=== PATIENT | male | born 1945 | race Caucasian/White ===

== ENCOUNTER 2018-03-13 19:21 | Emergency (ER) | payer MEDICARE, SELFPAY ==
[2018-03-13 19:32] VITALS: BP 138/82; PULSE 86; RESP 16; TEMP 36.3; O2SAT 100; BMI 30.4
--- NOTE | 2018-03-13 19:50 | DI.RAD.S_ITS ---
PROCEDURE: XR FOOT LT MIN 3V INDICATIONS: stepped on something, neuropathy TECHNIQUE: 3 views of the foot were acquired. COMPARISON: None. FINDINGS: Bones: Mildly displaced fracture through the distal third metatarsal. The third proximal phalange is dislocated laterally. Soft tissues: No tibiotalar joint effusion. Achilles tendon appears normal. IMPRESSION: 1. Distal third metatarsal fracture. 2. Third toe dislocation. Dictated by: Goldie Stevens MD, PhD on 03/13/2018 at 20:54 Approved by: Goldie Stevens MD, PhD on 03/13/2018 at 20:55
[2018-03-13 20:39] LABS: Add Manual Diff / Slide Review NO; Basophils Percent Auto 0.8 % (0-2); Eosinophils Percent Auto 1.3 % (2-4); Hematocrit 41.5 % (41-53); Hemoglobin 14.2 g/dL (13.5-17.5); Lymphocytes Percent Auto 13.8 % (25-40); Mean Corpuscular HGB Conc 34.1 % (30-36); Mean Corpuscular Hemoglobin 31.5 PG (26-34); Mean Corpuscular Volume 92.1 fL (80-100); Monocytes Percent Auto 7.1 % (3-14); Neutrophils Absolute Auto 7600 /uL (3000-5900); Platelet Count 294 X10^3/uL (150-400); Red Cell Distribution Width 13.5 % (11.6-14.8); White Blood Cell Count 9.9 X10^3/uL (4.5-11.0)
[2018-03-13 20:40] LABS: INR 1.1 (0.9-1.3); Prothrombin Time 12.5 SECONDS (10.1-12.7)
[2018-03-13 20:43] LABS: PTT Partial Thromboplastin Tim 42 SECONDS (26.4-36.2)
[2018-03-13 20:46] LABS: Alanine Aminotransferase 23 IU/L (21-72); Albumin Globulin Ratio 1.1 (1.0-2.8); Alkaline Phosphatase 98 U/L (38-126); Aspartate Aminotransferase 24 IU/L (17-59); Bilirubin Total 0.4 mg/dL (0.2-1.3); Blood Urea Nitrogen 31 mg/dL (9-20); Calcium 9.1 mg/dL (8.4-10.2); Carbon Dioxide 27 mmol/L (22-32); Chloride 104 mmol/L (98-107); Estimated Glomerular Filt Rate > 60.0 mL/min (>60); Globulin 3.8 g/dL (1.7-4.1); Glucose 140 mg/dL (80-110); HEMOLYSIS < 15 (0-50); Lactate (Lactic Acid) 1.8 mmol/L (0.7-2.1); Potassium 4.7 mmol/L (3.4-5.1); Sodium 141 mmol/L (137-145); Total Protein 7.8 g/dL (6.3-8.2)
--- NOTE | 2018-03-13 20:58 | ED_ITS ---
HPI - Wound/Laceration General Chief Complaint: Wound/Laceration Stated Complaint: HOLE LEFT FOOT Time Seen by Provider: 03/13/18 19:36 Source: patient Mode of arrival: ambulatory Limitations: no limitations History of Present Illness HPI narrative: Patient is a 73-year-old male presents with left foot injury. He has bilateral neuropathy but is not diabetic. His looked at his feet today and he apparently stepped on something. He is not sure when he has no pain. The top of his foot is erythematous. He saw his primary doctor or window framer earlier today who did drain the bottom of his foot. He does not feel weak or fatigued. He is on Remicade for rheumatoid arthritis. Location: other (Left foot) Related Data Previous Rx's Medication Instructions Recorded clindamycin HCl 300 mg PO Q6H 10 Days #0 cap 08/01/17 levofloxacin [Levaquin] 500 mg PO DAILY #10 tab 03/13/18 sulfamethoxazole-trimethoprim 1 tab PO BID 10 Days #20 tab 03/13/18 [Bactrim DS] Allergies Allergy/AdvReac Type Severity Reaction Status Date / Time cortisone [CORTISONE] Allergy Intermediate HALLUCINATI Verified 03/13/18 23:24 ONS Penicillins [PENICILLINS] Allergy Unknown Verified 03/13/18 23:24 Review of Systems Review of Systems All systems reviewed & are unremarkable except as noted in HPI and below Constitutional Denies chills, Denies fever(s), Denies lethargy and Denies weakness Cardiovascular Denies chest pain, Denies irregular heart rhythm, Denies lightheadedness, Denies palpitations, Denies dyspnea, Denies dyspnea on exertion and Denies orthopnea Respiratory Denies cough, Denies dyspnea, Denies dyspnea on exertion and Denies wheezing Gastrointestinal Gastrointestinal: Denies abdominal pain, Denies change in bowel habits, Denies diarrhea, Denies nausea and Denies vomiting Musculoskeletal Reports as per HPI and Reports numbness Integumentary/Breasts Reports as per HPI, Reports erythema and Reports wounds Neurologic Reports as per HPI, Reports numbness and Denies weakness Endocrine Denies palpitations Allergic/Immunologic Denies wheezing PFSH Medical History Neuropathy (Acute) Rheumatoid arthritis (Acute) Social History Smoking Status: Never smoker Exam Initial Vital Signs Initial Vital Signs: Vital Signs Temperature 97.4 F L 03/13/18 19:32 Pulse Rate 86 03/13/18 19:32 Respiratory Rate 16 03/13/18 19:32 Blood Pressure 138/82 H 03/13/18 19:32 Pulse Oximetry 100 03/13/18 19:32 Const General: cooperative and healthy appearing Nutritional Appearance: average body habitus Neck Neck: normal visual inspection Resp Effort & Inspection: normal respiratory effort Auscultation: clear to auscultation bilaterally Cardio Rate: regular rate Rhythm: regular rhythm Heart Sounds: S1 normal and S2 normal GI Palpation: soft, No firm and No tender Skin Rashes: rashes noted (Left foot erythematous to mid foot involving all toes no streaking) Trauma: puncture (2cm deep puncture wound no gross pus no induration) Extrem Left lower extremity: foot Details: normal capillary refill, abnormal ROM of toe (3rd toe sharmila deformity) and puncture wound (plantar side centrally located ); no tenderness Course Orders Ordered: ED Orders 03/13/18 19:50 XR foot LT min 3V Stat 03/13/18 20:20 Complete Blood Count AUTO DIFF Stat Comprehensive Metabolic Panel Stat Lactate (Lactic Acid) Stat Partial Thromboplastin Time Stat Procalcitonin Stat Prothrombin Time INR Stat 03/13/18 21:05 Blood Culture Stat Discontinued Medications Levofloxacin (Levaquin) 750 mg in 150 mls @ 100 mls/hr IV NOW CHRISTEL Last Infusion: 03/13/18 23:24 Dose: 0 mls/hr Admin: 03/13/18 21:15 Dose: 100 mls/hr Trimethoprim/Sulfamethoxazole (Bactrim Ds Prepack) 1 bottle MISC SEEINSTR ONE Stop: 03/13/18 21:48 Last Admin: 03/13/18 23:28 Dose: 1 bottle Vital Signs - 8 hr 03/13/18 19:32 03/13/18 22:34 03/13/18 23:38 Temperature 97.4 F L Pulse Rate 86 74 77 Respiratory Rate 16 16 16 Blood Pressure 138/82 H 127/68 H Blood Pressure [Left Arm] 130/74 H Pulse Oximetry 100 95 98 MDM - Wound/Laceration Medical Records Attestation: I reviewed the patient's medical records. Lab Data Attestation: I reviewed the patient's lab results. Result diagrams: 03/13/18 20:20 03/13/18 20:20 Lab Results 03/13/18 03/13/18 03/13/18 Range/Units 20:20 20:20 20:20 WBC 9.9 (4.5-11.0) X10^3/uL RBC 4.50 (4.5-5.9) X10^6/uL Hgb 14.2 (13.5-17.5) g/dL Hct 41.5 (41-53) % MCV 92.1 (80-100) fL MCH 31.5 (26-34) PG MCHC 34.1 (30-36) % RDW 13.5 (11.6-14.8) % Plt Count 294 (150-400) X10^3/uL Neut % (Auto) 77.0 H (50-75) % Lymph % (Auto) 13.8 L (25-40) % [place] % (Auto) 7.1 (3-14) % Eos % (Auto) 1.3 L (2-4) % Baso % (Auto) 0.8 (0-2) % Neut # (Auto) 7600 H (9892-0705) /uL PT 12.5 (10.1-12.7) SECONDS INR 1.1 (0.9-1.3) APTT 42 H (26.4-36.2) SECONDS Sodium (137-145) mmol/L Potassium (3.4-5.1) mmol/L Chloride (98-107) mmol/L Carbon Dioxide (22-32) mmol/L BUN (9-20) mg/dL Creatinine (0.66-1.25) mg/dL Estimated GFR (>60) mL/min BUN/Creatinine Ratio (6-22) Glucose (80-110) mg/dL Lactate (0.7-2.1) mmol/L Calcium (8.4-10.2) mg/dL Total Bilirubin (0.2-1.3) mg/dL AST (17-59) IU/L ALT (21-72) IU/L Alkaline Phosphatase (38-126) U/L Total Protein (6.3-8.2) g/dL Albumin (3.5-5.0) g/dL Globulin (1.7-4.1) g/dL Albumin/Globulin Ratio (1.0-2.8) Procalcitonin < 0.05 (<0.5) ng/mL 03/13/18 03/13/18 Range/Units 20:20 20:20 WBC (4.5-11.0) X10^3/uL RBC (4.5-5.9) X10^6/uL Hgb (13.5-17.5) g/dL Hct (41-53) % MCV (80-100) fL MCH (26-34) PG MCHC (30-36) % RDW (11.6-14.8) % Plt Count (150-400) X10^3/uL Neut % (Auto) (50-75) % Lymph % (Auto) (25-40) % [place] % (Auto) (3-14) % Eos % (Auto) (2-4) % Baso % (Auto) (0-2) % Neut # (Auto) (7842-2540) /uL PT (10.1-12.7) SECONDS INR (0.9-1.3) APTT (26.4-36.2) SECONDS Sodium 141 (137-145) mmol/L Potassium 4.7 (3.4-5.1) mmol/L Chloride 104 (98-107) mmol/L Carbon Dioxide 27 (22-32) mmol/L BUN 31 H (9-20) mg/dL Creatinine 1.00 (0.66-1.25) mg/dL Estimated GFR > 60.0 (>60) mL/min BUN/Creatinine Ratio 31.0 H (6-22) Glucose 140 H (80-110) mg/dL Lactate 1.8 (0.7-2.1) mmol/L Calcium 9.1 (8.4-10.2) mg/dL Total Bilirubin 0.4 (0.2-1.3) mg/dL AST 24 (17-59) IU/L ALT 23 (21-72) IU/L Alkaline Phosphatase 98 (38-126) U/L Total Protein 7.8 (6.3-8.2) g/dL Albumin 4.0 (3.5-5.0) g/dL Globulin 3.8 (1.7-4.1) g/dL Albumin/Globulin Ratio 1.1 (1.0-2.8) Procalcitonin (<0.5) ng/mL Imaging Data left foot x ray: Radiologist's impression: PROCEDURE: XR FOOT LT MIN 3V INDICATIONS: stepped on something, neuropathy TECHNIQUE: 3 views of the foot were acquired. COMPARISON: None. FINDINGS: Bones: Mildly displaced fracture through the distal third metatarsal. The third proximal phalange is dislocated laterally. Soft tissues: No tibiotalar joint effusion. Achilles tendon appears normal. IMPRESSION: 1. Distal third metatarsal fracture. 2. Third toe dislocation. Dictated by: Goldie Stevens MD, PhD on 03/13/2018 at 20:54 MDM Narrative Medical decision making narrative: Patient's blood work actually looks okay. He has a fracture and dislocated 3rd toe. He says he is aware of this they discussed this fracture and problem with his window framer earlier today. On at this point they were going to leave it as is. It is not bothering him, and treat this current wound and infection. We did discuss admission this is a relatively deep sore it will need extremely close monitoring. He is also on Remicade which puts him at risk for worsening infection. He previously had a fractured toe and infection and required multiple days in the hospital back in July. At this point patient would prefer to go home regardless, he is his 's caregiver. He is willing to come back and be re-evaluated tomorrow. He looks well and nontoxic. I Have packed the wound with iodoform gauze it is 2 cm deep. [place] wound packing is placed. Needs re-evaluation. possible admission. I discussed all findings with the patient. Education has been performed regarding treatment plan, diagnosis, warning signs and symptoms and all concerns have been addressed. Verbally agree with and understood all of the above. Discharge Plan Departure Patient Disposition: Home, Self-Care Clinical Impression: Cellulitis of foot, left, Puncture wound of foot, Fracture of left toe Discharge Date/Time: 03/13/18 23:45 Interventions: ED Discharge Assessment Last Done: 03/13/18 23:38 Instructions: DI for Cellulitis -- Adult Activity Restrictions/Additional Instructions: *You have been diagnosed with a left foot cellulitis, puncture wound, fracture and dislocation of left middle toe *What to do: You must return tomorrow for evaluation. This is high risk of you needing IV antibiotics and admission *Continue to take medications as directed -Levaquin once a day for 10 days -Bactrim 1 pill twice a day for 10 days *Follow up with your primary care provider in 2-3 days *Return to ER if you should have worsening redness, pus, fatigue, fever or any new, worsening or concerning symptoms Prescriptions: New sulfamethoxazole-trimethoprim [Bactrim DS] 800-160 mg tablet 1 tab PO BID 10 Days Qty: 20 RF: 0 levofloxacin [Levaquin] 500 mg tablet 500 mg PO DAILY Qty: 10 RF: 0 No Action clindamycin HCl 300 MG capsule 300 mg PO Q6H 10 Days Qty: 0 RF: 0 Referrals: Terence Victor MD [Primary Care Provider] -
[2018-03-13] MEDS: levoFLOXacin 750 MG/150 ML PIGGYBACK 100 MG IV (21:15)
[2018-03-13 21:26] LABS: Procalcitonin < 0.05 ng/mL (<0.5)
[2018-03-13 22:34] VITALS: BP 130/74; PULSE 74; RESP 16; O2SAT 95
[2018-03-13] MEDS: SULFA/TRIMETH 800/160 PREPACK 1 BOTTLE MISC (23:28)
[2018-03-13 23:38] VITALS: BP 127/68; PULSE 77; RESP 16; O2SAT 98
--- NOTE | 2018-03-13 23:44 | PC.NURSE ---
At 2215, the wound was packed with iodoform gauze and dressing was applied by DO Gray. patient reports no feeling despite depth of wound being 2.5cm.
[2018-03-18 05:13] LABS: Hemoglobin A1C% w Est Avg Glu 5.3 % (4.0-6.0)
== END 2018-03-13 23:45 | disposition home or self-care (01) ==
PROVIDERS: Emergency Provider Emergency Medicine; Family Provider Family Medicine; PCP Family Medicine
DX: S91.332A Puncture wound without foreign body, left foot, initial encounter (principal); S92.502A Displaced unspecified fracture of left lesser toe(s), initial encounter for closed fracture; L03.116 Cellulitis of left lower limb; W26.9XXA Contact with unspecified sharp object(s), initial encounter
CPT/HCPCS: 36415; 36591; 73630; 80053; 83036; 83605; 84145; 85025; 85610; 85730; 87040; 96365; 96366; 99283; 99284; J1956

== ENCOUNTER 2018-03-14 13:54 | Emergency (ER) | payer MEDICARE, SELFPAY ==
[2018-03-14 14:06] VITALS: BP 124/78; PULSE 78; RESP 16; TEMP 36.6; O2SAT 99; BMI 30.4
--- NOTE | 2018-03-14 14:27 | ED_ITS ---
HPI - Skin/Abscess/Foreign Bdy <ABIGAIL Burgos - Last Filed: 03/14/18 22:30> General Chief complaint: Skin/Abscess/Foreign Body Stated complaint: IN LAST NIGHT, TAKE ANOTHER LOOK AT FOOT Time Seen by Provider: 03/14/18 13:58 Source: patient Mode of arrival: ambulatory Limitations: no limitations History of Present Illness HPI narrative: 73-year-old male with history of peripheral neuropathy was seen last night due to cellulitis and puncture wound to the left foot. He was started on Levaquin and Bactrim orally. Levaquin IV was given to him last night. His channel supervisor requested that he be admitted and Dr. Gray who treated him last night also recommended that he be admitted. Patient does not want to be admitted at this time as he is caring for his who is disabled. He states that the redness has improved since yesterday. He denies any fevers or chills. He states that he is taking the antibiotics as prescribed. He denies any other concerns or complaints at this time. He is ambulatory into the emergency room. Related Data Previous Rx's Medication Instructions Recorded clindamycin HCl 300 mg PO Q6H 10 Days #0 cap 08/01/17 levofloxacin [Levaquin] 500 mg PO DAILY #10 tab 03/13/18 sulfamethoxazole-trimethoprim 1 tab PO BID 10 Days #20 tab 03/13/18 [Bactrim DS] Allergies Allergy/AdvReac Type Severity Reaction Status Date / Time cortisone [CORTISONE] Allergy Intermediate HALLUCINATI Verified 03/13/18 23:24 ONS Penicillins [PENICILLINS] Allergy Unknown Verified 03/13/18 23:24 Review of Systems <ABIGAIL Burgos - Last Filed: 03/14/18 22:30> Constitutional Denies chills, Denies fever(s), Denies lethargy and Denies weakness Eyes Denies change in vision, Denies eye discharge, Denies irritation and Denies loss of vision ENT Ears, Nose, Mouth, and Throat: Denies change in voice, Denies neck pain and Denies sore throat Cardiovascular Denies chest pain, Denies irregular heart rhythm, Denies lightheadedness, Denies palpitations, Denies dyspnea, Denies dyspnea on exertion and Denies orthopnea Respiratory Denies cough, Denies dyspnea, Denies dyspnea on exertion and Denies wheezing Gastrointestinal Gastrointestinal: Denies abdominal pain, Denies change in bowel habits, Denies diarrhea, Denies nausea and Denies vomiting Genitourinary Denies hematuria, Denies flank pain, Denies urinary incontinence and Denies urinary urgency Musculoskeletal Denies neck pain Comments: Cellulitis of left foot and infected puncture wound Integumentary/Breasts Denies pruritus, Denies erythema, Denies rash and Denies wounds Neurologic Denies confusion, Denies loss of vision and Denies weakness Psychiatric Denies anxiety, Denies confusion, Denies depression, Denies homicidal ideation and Denies suicidal ideation Endocrine Denies palpitations Hematologic/Lymphatic Denies easy bruising Allergic/Immunologic Denies wheezing Exam <ABIGAIL Burgos - Last Filed: 03/14/18 22:30> Initial Vital Signs Initial Vital Signs: Vital Signs Temperature 97.9 F 03/14/18 14:06 Pulse Rate 78 03/14/18 14:06 Respiratory Rate 16 03/14/18 14:06 Blood Pressure 124/78 H 03/14/18 14:06 Pulse Oximetry 99 03/14/18 14:06 Const General: cooperative and well developed Nutritional Appearance: well nourished Orientation: alert, awake, oriented x3 and not confused [facility] Mouth: oral mucosae normal and moist mucous membranes Eyes Conjunctivae: conjunctivae normal Sclera: sclerae normal Pupils: PERRL EOM: EOM intact bilaterally Resp Effort & Inspection: normal respiratory effort, able to speak in complete sentences, no respiratory distress and no use of accessory muscles Auscultation: clear to auscultation bilaterally, no rales, no rhonchi and no wheezes Cardio Rate: regular rate Rhythm: regular rhythm Heart Sounds: no click, no gallops, no murmurs and no rubs Skin General: no rashes or lesions noted, No jaundice and No petechiae Neuro General: alert, oriented x3, gait normal and no focal motor deficits Speech: speech normal Sensory Exam: lower extremity (Decreased sensation to bilateral lower extremities chronic in nature) Extrem Other: Erythema to the dorsal aspect of the left foot slightly receded from a marking that was placed on his foot yesterday. 1 cm puncture wound to the plantar aspect ball of his foot. Distal sensation is not intact. Distal cap refill less than 2 sec. Distal range of motion intact <Ulices Cheng DO - Last Filed: 03/15/18 07:30> Initial Vital Signs Initial Vital Signs: Vital Signs Temperature 97.9 F 03/14/18 14:06 Pulse Rate 78 03/14/18 14:06 Respiratory Rate 16 03/14/18 14:06 Blood Pressure 124/78 H 03/14/18 14:06 Pulse Oximetry 99 03/14/18 14:06 Course <ABIGAIL Burgos - Last Filed: 03/14/18 22:30> Vital Signs - 8 hr 03/14/18 15:11 Pulse Rate 66 Respiratory Rate 16 Blood Pressure [Left Arm] 121/69 H Pulse Oximetry 96 <Ulices Cheng DO - Last Filed: 03/15/18 07:30> Vital Signs - 8 hr 03/14/18 15:11 Pulse Rate 66 Respiratory Rate 16 Blood Pressure [Left Arm] 121/69 H Pulse Oximetry 96 MDM - Skin/Abscess/Foreign Bdy <ABIGAIL Burgos - Last Filed: 03/14/18 22:30> MDM Narrative Medical decision making narrative: Erythema to the left foot appears to be improved from yesterday as it has receded from the margin of the skin marking. Discussed admission with patient again patient still refuses admission as he is taking care of his . He is taking his antibiotics as prescribed. Puncture Wound was irrigated with normal saline and repacked with iodoform dressing. Patient tolerated well no complications. Will have patient follow up with his channel supervisor Friday morning. If any worsening redness or other complication he is to return to the emergency room. Discharge Plan Departure Patient Disposition: Home, Self-Care Clinical Impression: Cellulitis of foot, left, Puncture wound of foot, Fracture of left toe Discharge Date/Time: 03/14/18 15:26 Interventions: ED Discharge Assessment Last Done: 03/14/18 15:25 Instructions: DI for Cellulitis -- Adult Activity Restrictions/Additional Instructions: Wound was irrigated and repacked today. Continue taking antibiotics as prescribed. Follow-up with your channel supervisor on Friday. For any worsening symptoms such as redness fevers chills return to the emergency room. Prescriptions: No Action clindamycin HCl 300 MG capsule 300 mg PO Q6H 10 Days Qty: 0 RF: 0 sulfamethoxazole-trimethoprim [Bactrim DS] 800-160 mg tablet 1 tab PO BID 10 Days Qty: 20 RF: 0 levofloxacin [Levaquin] 500 mg tablet 500 mg PO DAILY Qty: 10 RF: 0 Referrals: Terence Victor MD [Primary Care Provider] - <Ulices Cheng DO - Last Filed: 03/15/18 07:30> Cosign ED Attending [place] Attestation: I was available for consultation during this patient's emergency department encounter
[2018-03-14 15:11] VITALS: BP 121/69; PULSE 66; RESP 16; O2SAT 96
== END 2018-03-14 15:26 | disposition home or self-care (01) ==
PROVIDERS: Emergency Provider Nurse Practitioner Family; Family Provider Family Medicine; PCP Family Medicine
DX: L03.116 Cellulitis of left lower limb (principal)
CPT/HCPCS: 99282

== ENCOUNTER → 2018-03-18 13:12 | Outpatient (CLI) | payer MEDICARE, SELFPAY ==
--- NOTE | 2018-03-18 | DI.US.S_ITS ---
PROCEDURE: US ARTERIAL DUPLEX LE LT INDICATIONS: Peripheral vascular disease, unspecified TECHNIQUE: Color and pulse Doppler interrogation was performed of the left lower extremity arterial system, with image documentation. COMPARISON: None. FINDINGS: Common femoral artery: 94 cm/sec, with triphasic flow. Deep femoral artery: 62 cm/sec, with biphasic flow. Proximal superficial femoral artery: 106 cm/sec, with triphasic flow. Mid superficial femoral artery: 77 cm/sec, with triphasic flow. Distal superficial femoral artery: 81 cm/sec, with triphasic flow. Popliteal artery: 76 cm/sec, with triphasic flow. Posterior tibial artery: 79 cm/sec, with triphasic flow. Anterior tibial artery/dorsalis pedis: 125 cm/sec, with biphasic flow. Mena-scale imaging description: Mild scattered calcific and soft plaque. IMPRESSION: Mild scattered calcific and soft plaque, no appreciable stenosis identified. No sign of large vessel arterial insufficiency identified. Small vessel vascular insufficiency may be present as can be seen in the setting of long-standing diabetes as cause of a nonhealing ulcer clinically reported along the plantar aspect of the foot. Dictated by: Angel Nguyen M.D. on 03/18/2018 at 14:56 Approved by: Angel Nguyen M.D. on 03/18/2018 at 14:58
--- NOTE | 2018-03-18 | DI.US.S_ITS ---
PROCEDURE: US MARCO LIMITED SINGLE LEVEL INDICATIONS: Peripheral vascular disease, unspecified TECHNIQUE: Ankle-brachial indices were obtained bilaterally and recorded. COMPARISONS: FINDINGS: Right ankle brachial index (MARCO): 1.2 Left ankle brachial index (MARCO): 1.1 IMPRESSION: Normal ankle brachial indices bilaterally. Dictated by: Davon Dunn [facility] Interpreted: Goldie Stevens MD on 03/18/2018 at 15:05 Approved by: Goldie Stevens MD, PhD on 03/18/2018 at 15:15
== END ==
PROVIDERS: Family Provider Family Medicine; PCP Family Medicine; Visit Provider Podiatrist
DX: I73.9 Peripheral vascular disease, unspecified (principal); S91.342D Puncture wound with foreign body, left foot, subsequent encounter
CPT/HCPCS: 93922; 93926

== ENCOUNTER → 2018-03-18 14:28 | Outpatient (CLI) | payer MEDICARE, SELFPAY ==
--- NOTE | 2018-03-18 | OV.WND_ITS ---
Progress Note Details Patient Name: Billy Cox Patient Number: [id number] PatientPatientDate: 03/18/2018 Clinician: Odessa George Clinician Cosigner: Hope Vela Physician / Bridges Supervisor: Denys Walton SUBJECTIVE Chief Complaint This information was obtained from the patient Neuropathic ulcer on left foot. Allergies penicillin (Severity: Moderate, Reaction: unknown), cortisone (Severity: Severe , Reaction: hallucinations) HPI This information was obtained from the patient 03/18/18. Seen by Dr. Walton. The patient's new to our clinic and presents with a left plantar foot 3rd MTPJ neuropathic ulcer. He was seen by Dr. Daly yesterday due to pain and swelling in the foot and found to have a deep ulcer beneath heavy callus. A culture was taken and he's now on levofloxacin and Bactrim and and MRI is pending but will not be able to be performed for about 2 weeks. He does not have a history of diabetes nor PAD and does not report claudication or rest pain. Of note, he does have rheumatoid arthritis for which is takes Remicaid every 5-6 weeks, along with prednisone and methotrexate. Family History This information was obtained from the patient Cancer - Father, Heart Disease - Mother, Maternal Grandparents, Stroke - Maternal Grandparents Social History This information was obtained from the patient Never smoker, Alcohol Use - None, Caffeine Use - 1/month, Lives in - Private Home, Marital Status - , Retired Past Medical History This information was obtained from the patient Patient has a medical history of: Neuropathy Rheumatoid Arthritis Surgical History This information was obtained from the patient Patient has a surgical history of: Appendectomy Lymphadenectomy Pin placement on right leg (fracture) Complaints and Symptoms This information was obtained from the patient Patient complains of: General Notes: I have reviewed and concur with the Review of Systems and Past Family Social History documents completed by the clinician, I have reviewed and concur with the Wound Assessment document completed by the clinician Integumentary (Hair/Skin/Nails): Open Sore Musculoskeletal: Deformities, Joint Swelling Neurological: Loss of Protective Sensation Prior Wound History: Drainage, Erythema, Pain Patient denies complaints or symptoms related to: Cardiovascular (Central/Peripheral): Intermittent Claudication, Lower extremity (leg) resting pain, Lower extremity (leg) swelling Constitutional Symptoms (General Health): Chills, Fever Ear/Nose/Mouth/Throat: Hearing Loss / Aid Hematologic/Lymphatic: Bleeding / Clotting Disorders, Bleeding Tendency Psychiatric: Memory Loss Respiratory: Shortness of Breath General Notes: Per patient, up to date. Additional Information Does patient have a history of Cancer? Yes? Complete all questions.: Yes Location of Cancer: Prostate List Treating Oncologist: [facility] Patient underwent Radiation Treatment? If yes, answer question below.: Yes Date of Radiation Month/Year: 2015 Medications Bactrim DS 800 mg-160 mg tablet oral 1 1 tablet oral twice daily for 7 days for cellulitis Remicade 100 mg intravenous solution intravenous 1 1 recon soln intravenous every 5 weeks Flomax 0.4 mg capsule oral 1 1 capsule,extended release 24hr oral once daily metoprolol succinate ER 25 mg tablet,extended release 24 hr oral 1 1 tablet extended release 24 hr oral twice daily prednisone 5 mg tablet oral 1 1 tablet oral once daily Percocet 5 mg-325 mg tablet oral 1 1 tablet oral every 4-6 hours as needed Levaquin 500 mg tablet oral 1 1 tablet oral once daily for 7 days for cellulitis OBJECTIVE Constitutional Vital signs reviewed and noted. Well developed. Alert. Clean appearing.. Height/ Length: 76 in (193.04 cm), Weight: 239.8 lbs (109 kgs), BMI: 29.2, Temperature: 97.6 ?F ( 36.44 ?C), Pulse: 76 bpm, Respiratory Rate: 18 breaths/min, Blood Pressure: 120/86 mmHg, Pulse Oximetry: 99 %. Ears, Nose, Mouth, and Throat: No clinically significant hearing loss on informal examination. Respiratory: No respiratory distress. Even respirations and without use of accessory muscles.. Cardiovascular: Pedal pulses 2+ on affected limb. Affected extremity exhibits no peripheral edema or cyanosis, is warm, and is well perfused. Capillary refill is less than 2 seconds. Integumentary (Hair, Skin) No periwound erythema, warmth, or significant drainage. No periwound rashes appreciated or noted otherwise.. Refer to appropriate clinician wound documentation for this visit; left foot ulcer extends to deep subcut with base partially covered with pink granulation, remainder fibrin and slough. Moderate amount of callus in the periulcer area. Wound #1 Left Foot is an acute Full Thickness Neuropathic Ulcer and has received a status of Not Healed. Initial wound encounter measurements are 0.8cm length x 0.6cm width x 4cm depth, with an area of 0.48 sq cm and a volume of 1.92 cubic cm. Bone is exposed. No tunneling has been noted. No sinus tract has been noted. No undermining has been noted. There is a moderate amount of sero-sanguineous drainage noted which has no odor. The patient reports no wound pain due to the wound being insensate. The wound margin is attached. Wound bed has Yes epithelialization, No eschar, No slough, Yes bright red, firm granulation. The periwound skin color is normal. The periwound skin exhibited: Edema, Callus , Moist, Maceration. The periwound skin did not exhibit: Brawny Induration, Excoriation, Induration, Crepitus, Fluctuance, Friable, Rash, Dry/Scaly. The temperature of the periwound skin is WNL. Periwound skin does not exhibit signs or symptoms of infection. Local Pulse is Palpable. Neurological: Cranial nerves grossly intact with symmetric function normal by informal observation.. 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 May Shower. - Please cover with cast protector when showering. Topical Treatments Antibiotic/Antimicrobial Ointment/Cream. - Gentamicin ointment. Dressings Pack wound: - 1/4 gauze ribbon lightly filling wound. Cover and secure with: - Foam (white side to wound, pink side away) secured with hypafix tape. Change Dressing: - Every other day. Additional Orders: Off-Loading Keep weight off: - Left foot. Use/Wear when Walking: - Off-loading shoe, given in clinic today. We recommend a walker or cane when using offloading shoe because it can cause instability. Please look into using knee scooter. Follow-Up Appointments Return Appointment: - - One week. Other information: If you develop fever, chills, increased pain, drainage, redness or swelling please call our office. If after hours, respond to the ER. Should you experience any significant changes in your wound(s) or have any questions regarding your home care instructions please contact the wound center @ [phone]. If after hours, contact your primary care physician or go to the hospital emergency room. Scribing Attestation I attest, as the nurse, that I scribed these orders for the physician. Laboratory: Culture Wound General Notes: Will call with culture results if any changes in antibiotics are required. MRI ordered by Dr. Daly, scheduled several weeks out. I've reviewed the clinician's documentation and agree with the evaluation and plan as written. Also, I've repeated a deep wound culture and will adjust antibiotics accordingly. The patient also understands the effect his immunosuppressant rheumatoid arthritis medications will have on delaying wound healing. Electronic Signature(s) Signed By: Date: Denys Walton MD 03/19/2018 13:47:32 Entered By: Denys Walton on 03/19/2018 13:45:29 Addendum at 04/06/2018 11:07:47 Able to probe to bone but not visible at base. Addendum Signed By: Denys Walton on 04/06/2018 11:07:47
== END ==
PROVIDERS: Family Provider Family Medicine; PCP Family Medicine; Referring Provider Podiatrist; Visit Provider Internal Medicine
DX: L97.523 Non-pressure chronic ulcer of other part of left foot with necrosis of muscle (principal); L08.9 Local infection of the skin and subcutaneous tissue, unspecified; T45.1X5D Adverse effect of antineoplastic and immunosuppressive drugs, subsequent encounter
CPT/HCPCS: 87070; 87075; 87077; 87205; 93922; 93926

== ENCOUNTER → 2018-03-23 11:08 | Outpatient (CLI) | payer MEDICARE, SELFPAY | PROVIDERS: Family Provider Family Medicine; PCP Family Medicine; Visit Provider Internal Medicine | DX: G90.9 Disorder of the autonomic nervous system, unspecified (principal); L97.526 Non-pressure chronic ulcer of other part of left foot with bone involvement without evidence of necrosis; M79.672 Pain in left foot | CPT/HCPCS: 87070; 87205; 97597 ==

== ENCOUNTER → 2018-03-25 10:47 | Outpatient (CLI) | payer MEDICARE, SELFPAY ==
--- NOTE | 2018-03-25 | OV.WND_ITS ---
Progress Note Details Patient Name: Billy Cox Patient Number: [id number] PatientPatientDate: 03/25/2018 Clinician: Dea Sims Physician / Thread Singer: Denys Walton SUBJECTIVE Chief Complaint This information was obtained from the patient Neuropathic ulcer on left foot. Allergies penicillin (Severity: Moderate, Reaction: unknown), cortisone (Severity: Severe , Reaction: hallucinations) HPI This information was obtained from the patient 03/25/18. Seen by Dr. Walton. The patient reports a significant improvement regarding his left foot pain following his last visit. The repeat culture taken from the left plantar foot 3rd MTPJ neuropathic ulcer was again unremarkable and he's now only on Bactrim for an associated infection. His MRI to evaluate for abscess and/or osteomyelitis is scheduled for next week and he's wearing his offloading shoe as recommended. 03/23/18. Seen by Dr. Walton. The patient reports increased pain associated with the left plantar foot 3rd MTPJ neuropathic ulcer. He states the pain increased yesterday and is intermittent and 'shooting' up the leg. He does not report fevers or feeling unwell and he continues on levofloxacin and Bactrim as prescribed. Of note, neither our wound culture nor Dr. Daly's showed any organisms or growth. 03/18/18. Seen by Dr. Walton. The patient's new to our clinic and presents with a left plantar foot 3rd MTPJ neuropathic ulcer. He was seen by Dr. Daly yesterday due to pain and swelling in the foot and found to have a deep ulcer beneath heavy callus. A culture was taken and he's now on levofloxacin and Bactrim and and MRI is pending but will not be able to be performed for about 2 weeks. He does not have a history of diabetes nor PAD and does not report claudication or rest pain. Of note, he does have rheumatoid arthritis for which is takes Remicaid every 5-6 weeks, along with prednisone and methotrexate. Past Medical History This information was obtained from the patient Patient has a medical history of: Neuropathy Rheumatoid Arthritis Complaints and Symptoms This information was obtained from the patient Patient complains of: General Notes: I have reviewed and concur with the Review of Systems and Past Family Social History documents completed by the clinician, I have reviewed and concur with the Wound Assessment document completed by the clinician Integumentary (Hair/Skin/Nails): Open Sore Musculoskeletal: Deformities, Joint Swelling Neurological: Loss of Protective Sensation Prior Wound History: Drainage, Erythema, Pain Patient denies complaints or symptoms related to: Cardiovascular (Central/Peripheral): Intermittent Claudication, Lower extremity (leg) resting pain, Lower extremity (leg) swelling Constitutional Symptoms (General Health): Chills, Fever Ear/Nose/Mouth/Throat: Hearing Loss / Aid Hematologic/Lymphatic: Bleeding / Clotting Disorders, Bleeding Tendency Psychiatric: Memory Loss Respiratory: Shortness of Breath Additional Information Does patient have a history of Cancer? Yes? Complete all questions.: Yes Location of Cancer: Prostate List Treating Oncologist: [facility] Patient underwent Radiation Treatment? If yes, answer question below.: Yes Date of Radiation Month/Year: 2015 OBJECTIVE Constitutional Vital signs reviewed and noted. Well developed. Alert. Clean appearing.. Height/ Length: 76 in (193.04 cm), Weight: 238.4 lbs (108.36 kgs), BMI: 29, Temperature: 97.4 ?F ( 36.33 ?C), Pulse: 75 bpm, Respiratory Rate: 18 breaths/min, Blood Pressure: 120/82 mmHg, Pulse Oximetry: 99 %. Ears, Nose, Mouth, and Throat: No clinically significant hearing loss on informal examination. Respiratory: No respiratory distress. Even respirations and without use of accessory muscles.. Cardiovascular: Affected extremity exhibits no peripheral edema or cyanosis, is warm, and is well perfused. Capillary refill is less than 2 seconds. Musculoskeletal: Significant left foot pes cavus deformity. Integumentary (Hair, Skin) No periwound erythema, warmth, or significant drainage. No periwound rashes appreciated or noted otherwise.. Refer to appropriate clinician wound documentation for this visit; left foot ulcer extends to bone with visible base covered with pink granulation, remainder fibrin and slough; minimal clear drainage noted on probing today. Maceration and callus present in the periwound area. Wound #1 Left Foot is an acute Full Thickness Neuropathic Ulcer and has received a status of Not Healed. Subsequent wound encounter measurements are 0.5cm length x 0.2cm width x 3.5cm depth, with an area of 0.1 sq cm and a volume of 0.35 cubic cm. Bone is exposed. No tunneling has been noted. No sinus tract has been noted. No undermining has been noted. There is a large amount of sero-sanguineous drainage noted which has no odor. The patient reports a wound pain of level 4/10. The wound margin is attached. Wound bed has Yes epithelialization, No eschar, No slough, Yes bright red, firm granulation. The periwound skin color is normal. The periwound skin exhibited: Edema, Callus , Moist, Maceration. The periwound skin did not exhibit: Brawny Induration, Excoriation, Induration, Crepitus, Fluctuance, Friable, Rash, Dry/Scaly. The temperature of the periwound skin is WNL. Periwound skin does not exhibit signs or symptoms of infection. Local Pulse is Palpable. Neurological: Cranial nerves grossly intact with symmetric function normal by informal observation.. 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 A skin/subcutaneous tissue level surgical debridement with a total area debrided of 0.1 sq cm was performed by Denys Walton MD. Subcutaneous was removed along with devitalized tissue: callus, slough, and maceration. The following instrument(s) were used: curette. Pain control was achieved using 4% Lido. A time out was conducted prior to the start of the procedure. A minimal amount of bleeding was controlled with n/a. The procedure was tolerated well with a pain level of 0 throughout and a pain level of 0 following the procedure. Post Debridement Measurements: 0.5cm length x 0.2cm width x 3.6cm depth; with an area of 0.1 sq cm and a volume of 0.36 cubic cm; Additional Information Muscle fascia or bone removed and sent to pathology?: No PLAN Wound Orders: Wound #1 Left Foot Cleanser Cleanse Wound: - Normal saline and gauze, may use distilled water at home. May Shower. - Please cover with cast protector when showering. Topical Treatments Antibiotic/Antimicrobial Ointment/Cream. - Gentamicin ointment. Dressings Pack wound: - 1/ gauze ribbon lightly filling wound. Cover and secure with: - Mextra Superabsorbent dressing, secured with conform wrap gauze. Change Dressing: - Every other day. Additional Orders: Off-Loading Keep weight off: - Left foot. Use/Wear when Walking: - Off-loading shoe, given in clinic today. We recommend a walker or cane when using offloading shoe because it can cause instability. Please look into using knee scooter. Follow-Up Appointments Return Appointment: - - One week Other information: If you develop fever, chills, increased pain, drainage, redness or swelling please call our office. If after hours, respond to the ER. Should you experience any significant changes in your wound(s) or have any questions regarding your home care instructions please contact the wound center @ [phone]. If after hours, contact your primary care physician or go to the hospital emergency room. Scribing Attestation I attest, as the nurse, that I scribed these orders for the physician. General Notes: Continue on Bactrim as prescribed. MRI Scheduled on 05/01/18 @5:30 pm. Please have labs drawn this week. I've reviewed the clinician's documentation and agree with the evaluation and plan as written. In addition, the patient's ulcer demonstrates evidence of non-viable devitalized tissue which will continue to benefit from sharp debridement to help promote granulation and expedite healing. Also, the patient will complete his course of Bactrim as prescribed and we'll await results of his MRI. Electronic Signature(s) Signed By: Date: Denys Walton MD 03/26/2018 09:16:50 Entered By: Denys Walton on 03/26/2018 09:08:51
== END ==
PROVIDERS: Family Provider Family Medicine; PCP Family Medicine; Visit Provider Internal Medicine
DX: L08.9 Local infection of the skin and subcutaneous tissue, unspecified (principal); L97.526 Non-pressure chronic ulcer of other part of left foot with bone involvement without evidence of necrosis
CPT/HCPCS: 11042

== ENCOUNTER → 2018-03-25 11:33 | Outpatient (CLI) | payer MEDICARE, SELFPAY ==
[2018-03-25 12:49] LABS: Albumin 3.8 g/dL (3.5-5.0); BUN Creatinine Ratio 27.7 (6-22); Blood Urea Nitrogen 36 mg/dL (9-20); Estimated Glomerular Filt Rate 53.8 mL/min (>60); HEMOLYSIS < 15 (0-50)
[2018-03-25 14:52] LABS: Calcium 9.4 mg/dL (8.4-10.2); Carbon Dioxide 21 mmol/L (22-32); Chloride 106 mmol/L (98-107); Glucose 99 mg/dL (80-110); Phosphorous 3.2 mg/dL (2.3-3.7); Potassium 5.1 mmol/L (3.4-5.1); Sodium 138 mmol/L (137-145)
== END ==
PROVIDERS: Family Provider Family Medicine; PCP Family Medicine; Visit Provider Internal Medicine
DX: C08.9 Malignant neoplasm of major salivary gland, unspecified (principal)
CPT/HCPCS: 36415; 80069; 80076; 82565; 84520

== ENCOUNTER → 2018-03-31 17:07 | Outpatient (CLI) | payer MEDICARE, SELFPAY ==
--- NOTE | 2018-03-31 17:12 | DI.MRI.S_ITS ---
PROCEDURE: MR FOOT LT WO/W CON INDICATIONS: PUNCTURE WOUND WITH FORIEGN BODY, LEFT FOOT TECHNIQUE: Noncontrast coronal T1 spin echo and STIR, sagittal T1 spin echo with fat saturation and STIR, axial T1 spin echo and T2 fast spin echo with fat saturation. After the administration of contrast, axial/sagittal/coronal T1 spin echo with fat saturation through the left foot.. COMPARISON: None. FINDINGS: Image quality: Excellent. Bones: There is diffuse marrow edema throughout the third metatarsal shaft and adjacent third proximal phalanx. There is suggestion of pathologic fracture involving the third metatarsal neck. Lateral subluxation/dislocation at third MTP joint is also seen. Subtle cortical erosive changes are noted involving the plantar aspect of third metatarsal shaft. Finding is consistent with osteomyelitis in third toe. No other area of abnormal marrow signal is seen. Moderate hallux valgus deformity and significant lateral deviation at second and fourth MTP joints are seen. Abnormal contrast enhancement is also noted within the third metatarsal shaft and third proximal phalanx. Soft tissues: There is marked soft tissue swelling and edema surrounding surgical suggestive of extensive cellulitis. Soft tissue edema and swelling along dorsum of mid and forefoot is also seen. No drainable fluid collection is noted. No gross intramuscular signal abnormality. Abnormal contrast enhancement at the site of soft tissue swelling and edema is also seen. IMPRESSION: 1. Extensive osteomyelitis throughout third metatarsal shaft and third proximal phalanx with pathologic fracture at third metatarsal neck. Lateral dislocation/subluxation at third MTP joint. Extensive surrounding cellulitis in the foot and forefoot. No drainable fluid collection. 2. Moderate hallux valgus and significant lateral deviation at second and fourth MTP joints. No other area of marrow signal abnormality to suggest osteomyelitis. Dictated by: Eric Rivas M.D. on 04/01/2018 at 9:27 Approved by: Eric Rivas M.D. on 04/01/2018 at 9:45
== END ==
PROVIDERS: Family Provider Family Medicine; PCP Family Medicine; Visit Provider Podiatrist
DX: M86.8X7 Other osteomyelitis, ankle and foot (principal); S93.129A Dislocation of metatarsophalangeal joint of unspecified toe(s), initial encounter; L03.116 Cellulitis of left lower limb; M20.12 Hallux valgus (acquired), left foot
CPT/HCPCS: 73720; A9579

== ENCOUNTER → 2018-04-01 13:33 | Outpatient (CLI) | payer MEDICARE, SELFPAY ==
--- NOTE | 2018-04-01 | OV.WND_ITS ---
Progress Note Details Patient Name: Billy Cox Patient Number: [id number] PatientPatientDate: 04/01/2018 Clinician: Esther Brewer Physician / Court Administrator: Denys Walton SUBJECTIVE Chief Complaint This information was obtained from the patient Neuropathic ulcer on left foot. Allergies penicillin (Severity: Moderate, Reaction: unknown), cortisone (Severity: Severe , Reaction: hallucinations) HPI This information was obtained from the patient 04/01/18. Seen by Dr. Walton. The patient reports the previously described pain in the left foot has resolved and he's completed 2 weeks of Bactrim for an infection associated with the left foot neuropathic ulcer. His MRI shows acute ostemyelitis of the 3 MT along with a pathologic fracture but no abscess. He continues to wear his offloading shoe without difficulty and of note his 2 deep wound cultures taken in our clinic showed no growth. His ulcer and osteomyelitis are also complicated by his diagnosis of rheumatoid arthritis for which he takes prednisone, methotrexate, and intermittently Remicade. 03/25/18. Seen by Dr. Walton. The patient reports a significant improvement regarding his left foot pain following his last visit. The repeat culture taken from the left plantar foot 3rd MTPJ neuropathic ulcer was again unremarkable and he's now only on Bactrim for an associated infection. His MRI to evaluate for abscess and/or osteomyelitis is scheduled for next week and he's wearing his offloading shoe as recommended. 03/23/18. Seen by Dr. Walton. The patient reports increased pain associated with the left plantar foot 3rd MTPJ neuropathic ulcer. He states the pain increased yesterday and is intermittent and 'shooting' up the leg. He does not report fevers or feeling unwell and he continues on levofloxacin and Bactrim as prescribed. Of note, neither our wound culture nor Dr. Daly's showed any organisms or growth. 03/18/18. Seen by Dr. Walton. The patient's new to our clinic and presents with a left plantar foot 3rd MTPJ neuropathic ulcer. He was seen by Dr. Daly yesterday due to pain and swelling in the foot and found to have a deep ulcer beneath heavy callus. A culture was taken and he's now on levofloxacin and Bactrim and and MRI is pending but will not be able to be performed for about 2 weeks. He does not have a history of diabetes nor PAD and does not report claudication or rest pain. Of note, he does have rheumatoid arthritis for which is takes Remicaid every 5-6 weeks, along with prednisone and methotrexate. Past Medical History This information was obtained from the patient Patient has a medical history of: Neuropathy Rheumatoid Arthritis Complaints and Symptoms This information was obtained from the patient Patient complains of: General Notes: I have reviewed and concur with the Review of Systems and Past Family Social History documents completed by the clinician, I have reviewed and concur with the Wound Assessment document completed by the clinician Integumentary (Hair/Skin/Nails): Open Sore Musculoskeletal: Deformities, Joint Swelling Neurological: Loss of Protective Sensation Prior Wound History: Drainage, Erythema, Pain Patient denies complaints or symptoms related to: Cardiovascular (Central/Peripheral): Intermittent Claudication, Lower extremity (leg) resting pain, Lower extremity (leg) swelling Constitutional Symptoms (General Health): Chills, Fever Ear/Nose/Mouth/Throat: Hearing Loss / Aid Hematologic/Lymphatic: Bleeding / Clotting Disorders, Bleeding Tendency Psychiatric: Memory Loss Respiratory: Shortness of Breath Additional Information Does patient have a history of Cancer? Yes? Complete all questions.: Yes Location of Cancer: Prostate List Treating Oncologist: [facility] Patient underwent Radiation Treatment? If yes, answer question below.: Yes Date of Radiation Month/Year: 2015 OBJECTIVE Constitutional Vital signs reviewed and noted. Well developed. Alert. Clean appearing.. Height/ Length: 76 in (193.04 cm), Weight: 238.4 lbs (108.36 kgs), BMI: 29, Temperature: 100 ?F ( 37.78 ?C), Pulse: 84 bpm, Respiratory Rate: 18 breaths/min, Blood Pressure: 123/86 mmHg, Pulse Oximetry: 97 %. Ears, Nose, Mouth, and Throat: No clinically significant hearing loss on informal examination. Respiratory: No respiratory distress. Even respirations and without use of accessory muscles.. Cardiovascular: Pedal pulses 2+ on affected limb. Affected extremity exhibits no peripheral edema or cyanosis, is warm, and is well perfused. Capillary refill is less than 2 seconds. Musculoskeletal: No significant left foot periwound swelling, echymosis, or appreciable sharmila deformities. Integumentary (Hair, Skin) No periwound erythema, warmth, or significant drainage. No periwound rashes appreciated or noted otherwise.. Refer to appropriate clinician wound documentation for this visit; left foot ulcer extends to subcut with base partially covered with pink granulation, remainder fibrin and slough; much smaller and less deep than on previous review. Wound #1 Left Foot is an acute Full Thickness Neuropathic Ulcer and has received a status of Not Healed. Subsequent wound encounter measurements are 0.1cm length x 0.1cm width x 0.1cm depth, with an area of 0.01 sq cm and a volume of 0.001 cubic cm. No tunneling has been noted. No sinus tract has been noted. No undermining has been noted. There is a large amount of sero-sanguineous drainage noted which has no odor. The patient reports a wound pain of level 4/10. The wound margin is attached. Wound bed has Yes epithelialization, No eschar, No slough, No granulation. The periwound skin color is normal. The periwound skin exhibited: Edema, Callus , Moist, Maceration. The periwound skin did not exhibit: Brawny Induration, Excoriation, Induration, Crepitus, Fluctuance, Friable, Rash, Dry/Scaly. The temperature of the periwound skin is WNL. Periwound skin does not exhibit signs or symptoms of infection. Local Pulse is Palpable. Neurological: Cranial nerves grossly intact with symmetric function normal by informal observation.. 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 A skin/subcutaneous tissue level surgical debridement with a total area debrided of 0.06 sq cm was performed by Denys Walton MD. Subcutaneous was removed along with devitalized tissue: exudate. The following instrument(s) were used: curette. Pain control was achieved using 4% Lido. A time out was conducted prior to the start of the procedure. A minimal amount of bleeding was controlled with pressure. The procedure was tolerated well with a pain level of 0 throughout and a pain level of 0 following the procedure. Post Debridement Measurements: 0.3cm length x 0.2cm width x 0.3cm depth; with an area of 0.06 sq cm and a volume of 0.018 cubic cm; Additional Information Muscle fascia or bone removed and sent to pathology?: No PLAN Wound Orders: Wound #1 Left Foot Cleanser Cleanse Wound: - Distilled water or Normal Saline. May Shower. - Keep dressing clean and dry use shower boot/Cast boot to protect wound Topical Treatments Antibiotic/Antimicrobial Ointment/Cream. - Gentamicin Dressings Primary dressing: - Foam and secure with tape Off-Loading Keep weight off: - Left foot. Use off-loading shoe. Follow-Up Appointments Return Appointment: - - In one week Scribing Attestation I attest, as the nurse, that I scribed these orders for the physician. Medications prescribed: Bactrim DS - oral 800 mg-160 mg tablet twice daily for 28 days for acute osteomyelitis starting 04/01/2018 I've reviewed the clinician's documentation and agree with the evaluation and plan as written. In addition, the patient's ulcer demonstrates evidence of non-viable devitalized tissue which will continue to benefit from sharp debridement to help promote granulation and expedite healing. Also, I've continued the patient on an additional 4 weeks of Bactrim for newly diagnosed acute osteomyelitis. The left foot ulcer drainage, erythema, and swelling have improved considerably over the past 2 weeks and I'll ask Dr. Daly to see the patient regarding the pathologic fracture. He'll continue wearing the offloading shoe for now but may require a more supportive walking boot which may be discussed when he sees Dr. Daly. Electronic Signature(s) Signed By: Date: Denys Walton MD 04/02/2018 06:27:44 Entered By: Denys Walton on 04/02/2018 06:18:42
== END ==
PROVIDERS: Family Provider Family Medicine; PCP Family Medicine; Visit Provider Internal Medicine
DX: G90.9 Disorder of the autonomic nervous system, unspecified (principal); L97.522 Non-pressure chronic ulcer of other part of left foot with fat layer exposed; M86.172 Other acute osteomyelitis, left ankle and foot; M84.475A Pathological fracture, left foot, initial encounter for fracture; M05.9 Rheumatoid arthritis with rheumatoid factor, unspecified
CPT/HCPCS: 11042

== ENCOUNTER → 2018-04-08 13:22 | Outpatient (CLI) | payer MEDICARE, SELFPAY | PROVIDERS: Family Provider Family Medicine; PCP Family Medicine; Visit Provider Internal Medicine | DX: G90.9 Disorder of the autonomic nervous system, unspecified (principal); L97.521 Non-pressure chronic ulcer of other part of left foot limited to breakdown of skin; M86.172 Other acute osteomyelitis, left ankle and foot; M84.475D Pathological fracture, left foot, subsequent encounter for fracture with routine healing | CPT/HCPCS: 99212 ==

== ENCOUNTER → 2018-04-23 15:05 | Outpatient (CLI) | payer MEDICARE, SELFPAY ==
--- NOTE | 2018-04-23 | OV.WND_ITS ---
Progress Note Details Patient Name: Billy Cox Patient Number: [id number] PatientPatientDate: 04/23/2018 Clinician: Dea Sims Clinician Cosigner: Hope Vela Physician / Winder Helper: Denys Walton SUBJECTIVE Chief Complaint This information was obtained from the patient Neuropathic ulcer on left foot. Allergies penicillin (Severity: Moderate, Reaction: unknown), cortisone (Severity: Severe , Reaction: hallucinations) HPI This information was obtained from the patient 04/23/18. Seen by Dr. Walton. The patient does not report pain or drainage associated with the chronic left foot neuropathic ulcer since his last visit and he has one more week of a 6 week course of Bactrim prescribed for acute osteomyelitis of the left 3rd MT. He does not report adverse side effects nor other acute issues today. 04/08/18. Seen by Dr. Walton. The patient does not report pain or drainage associated with the chronic left foot neuropathic ulcer since his last visit and he continues on Bactrim for acute osteomyelitis of the left 3rd MT. He's also wearing his offloading shoe as recommended noting his recent MRI reported a pathologic fracture of the 3rd MT. 04/01/18. Seen by Dr. Walton. The patient reports the previously described pain in the left foot has resolved and he's completed 2 weeks of Bactrim for an infection associated with the left foot neuropathic ulcer. His MRI shows acute osteomyelitis of the 3 MT along with a pathologic fracture but no abscess. He continues to wear his offloading shoe without difficulty and of note his 2 deep wound cultures taken in our clinic showed no growth. His ulcer and osteomyelitis are also complicated by his diagnosis of rheumatoid arthritis for which he takes prednisone, methotrexate, and intermittently Remicade. 03/25/18. Seen by Dr. Walton. The patient reports a significant improvement regarding his left foot pain following his last visit. The repeat culture taken from the left plantar foot 3rd MTPJ neuropathic ulcer was again unremarkable and he's now only on Bactrim for an associated infection. His MRI to evaluate for abscess and/or osteomyelitis is scheduled for next week and he's wearing his offloading shoe as recommended. 03/23/18. Seen by Dr. Walton. The patient reports increased pain associated with the left plantar foot 3rd MTPJ neuropathic ulcer. He states the pain increased yesterday and is intermittent and 'shooting' up the leg. He does not report fevers or feeling unwell and he continues on levofloxacin and Bactrim as prescribed. Of note, neither our wound culture nor Dr. Daly's showed any organisms or growth. 03/18/18. Seen by Dr. Walton. The patient's new to our clinic and presents with a left plantar foot 3rd MTPJ neuropathic ulcer. He was seen by Dr. Daly yesterday due to pain and swelling in the foot and found to have a deep ulcer beneath heavy callus. A culture was taken and he's now on levofloxacin and Bactrim and and MRI is pending but will not be able to be performed for about 2 weeks. He does not have a history of diabetes nor PAD and does not report claudication or rest pain. Of note, he does have rheumatoid arthritis for which is takes Remicaid every 5-6 weeks, along with prednisone and methotrexate. Past Medical History This information was obtained from the patient Patient has a medical history of: Neuropathy Rheumatoid Arthritis Complaints and Symptoms This information was obtained from the patient Patient complains of: General Notes: I have reviewed and concur with the Review of Systems and Past Family Social History documents completed by the clinician, I have reviewed and concur with the Wound Assessment document completed by the clinician Integumentary (Hair/Skin/Nails): Open Sore Musculoskeletal: Deformities, Joint Swelling Neurological: Loss of Protective Sensation Prior Wound History: Drainage, Erythema, Pain Patient denies complaints or symptoms related to: Cardiovascular (Central/Peripheral): Intermittent Claudication, Lower extremity (leg) resting pain, Lower extremity (leg) swelling Constitutional Symptoms (General Health): Chills, Fever Ear/Nose/Mouth/Throat: Hearing Loss / Aid Hematologic/Lymphatic: Bleeding / Clotting Disorders, Bleeding Tendency Psychiatric: Memory Loss Respiratory: Shortness of Breath Additional Information Does patient have a history of Cancer? Yes? Complete all questions.: Yes Location of Cancer: Prostate List Treating Oncologist: [facility] Patient underwent Radiation Treatment? If yes, answer question below.: Yes Date of Radiation Month/Year: 2015 OBJECTIVE Constitutional Vital signs reviewed and noted. Well developed. Alert. Clean appearing.. Height/ Length: 76 in (193.04 cm), Weight: 236 lbs (107.27 kgs), BMI: 28.7, Temperature: 97.2 ?F ( 36.22 ?C), Pulse: 73 bpm, Respiratory Rate: 18 breaths/min, Blood Pressure: 124/82 mmHg, Pulse Oximetry: 97 %. Respiratory: No respiratory distress. Even respirations and without use of accessory muscles.. Integumentary (Hair, Skin) Refer to appropriate clinician wound documentation for this visit.. Wound #1 Left Foot is an acute Full Thickness Neuropathic Ulcer and has received an outcome of Healed - no new wound(s). Subsequent wound encounter measurements are 0cm length x 0cm width with no measurable depth, with an area of 0 sq cm . No tunneling has been noted. No sinus tract has been noted. No undermining has been noted. There was no drainage noted. The patient reports a wound pain of level 4/10. The wound margin is attached. Wound bed has Yes epithelialization, No eschar, No slough, No granulation. The periwound skin color is normal. The periwound skin exhibited: Callus, Moist , Maceration. The periwound skin did not exhibit: Brawny Induration, Edema, Excoriation, Induration, Crepitus, Fluctuance, Friable, Rash, Dry/Scaly. The temperature of the periwound skin is WNL. Periwound skin does not exhibit signs or symptoms of infection. Local Pulse is Palpable. Neurological: Cranial nerves grossly intact with symmetric function normal by informal observation.. 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 If after hours, respond to the ER. Should you experience any significant changes in your wound(s) or have any questions regarding your home care instructions please contact the wound center @ [phone]. If after hours, contact your primary care physician or go to the hospital emergency room. Discharge from Outpatient Services. - Wound healed Scribing Attestation I attest, as the nurse, that I scribed these orders for the physician. General Notes: Please complete oral antibiotics. I've reviewed the clinician's documentation and agree with the evaluation and plan as written. In addition the patient's last remiaining complex wound is now healed. The patient is invited to return to our clinic for treatment of any future complex wounds. Post wound care and strategies to avoid recurrences were discussed. Also, the patient will complete his course of Bactrim as prescribed and follow up with Dr. Daly as scheduled. Electronic Signature(s) Signed By: Date: Denys Walton MD 04/24/2018 09:41:06 Entered By: Denys Walton on 04/24/2018 06:28:12
== END ==
PROVIDERS: Family Provider Family Medicine; PCP Family Medicine; Visit Provider Internal Medicine
DX: Z48.817 Encounter for surgical aftercare following surgery on the skin and subcutaneous tissue (principal); M86.172 Other acute osteomyelitis, left ankle and foot
CPT/HCPCS: 99214

== ENCOUNTER 2018-06-28 19:45 | Inpatient (IN) | payer MEDICARE, SELFPAY ==
[2018-06-28 19:58] VITALS: BP 131/86; PULSE 75; RESP 18; TEMP 36.6; O2SAT 98; BMI 29.2
--- NOTE | 2018-06-28 19:59 | ED.WOUNDLAC ---
HPI - Wound/Laceration <ABIGAIL Burgos - Last Filed: 06/28/18 22:12> General Chief Complaint: Wound/Laceration Stated Complaint: right foot thinks is infected Time Seen by Provider: 06/28/18 19:59 Source: patient Mode of arrival: ambulatory Limitations: no limitations History of Present Illness HPI narrative: 73-year-old male with history of osteoarthritis and is a nonsmoker here for complaint of pain and redness to his right foot. He states that he has had an ulceration to the bottom of his right foot over the past several weeks. He has seen Orthopedics for this and was diagnosed with having dislocations to his metatarsals with a bone causing pressure to the sole of the ft causing the ulceration. He has also been seen for this by his primary care provider. he does state that he was treated with antibiotics for this a few weeks ago however was taken off. He reports he does have drainage from the ulcer is a jacobson that is serosanguineous. He denies any fevers or chills. No trauma to the area. He reports increasing redness and swelling to the area that started yesterday. Redness is to the dorsal aspect of the right foot. Related Data Home Medications Medication Instructions Recorded Confirmed metoprolol tartrate 25 mg PO BID 06/28/18 06/28/18 prednisone 5 mg PO DAILY 06/28/18 06/28/18 tamsulosin 0.4 mg PO DAILY 06/28/18 06/28/18 Allergies Allergy/AdvReac Type Severity Reaction Status Date / Time cortisone [CORTISONE] Allergy Intermediate HALLUCINATI Verified 06/28/18 20:03 ONS Penicillins [PENICILLINS] Allergy Unknown Verified 06/28/18 20:03 Review of Systems <ABIGAIL Burgos - Last Filed: 06/28/18 22:12> Eyes Denies change in vision, Denies eye discharge, Denies irritation and Denies loss of vision ENT Ears, Nose, Mouth, and Throat: Denies change in voice, Denies neck pain and Denies sore throat Cardiovascular Denies chest pain, Denies irregular heart rhythm, Denies lightheadedness, Denies palpitations, Denies dyspnea, Denies dyspnea on exertion and Denies orthopnea Respiratory Denies cough, Denies dyspnea, Denies dyspnea on exertion and Denies wheezing Gastrointestinal Gastrointestinal: Denies abdominal pain, Denies change in bowel habits, Denies diarrhea, Denies nausea and Denies vomiting Genitourinary Denies hematuria, Denies flank pain, Denies urinary incontinence and Denies urinary urgency Musculoskeletal Denies neck pain Comments: right foot redness and swelling Integumentary/Breasts Denies pruritus, Denies erythema, Denies rash and Denies wounds Neurologic Denies confusion and Denies loss of vision Psychiatric Denies anxiety, Denies confusion, Denies depression, Denies homicidal ideation and Denies suicidal ideation Endocrine Denies palpitations Hematologic/Lymphatic Denies easy bruising Allergic/Immunologic Denies wheezing Exam <ABIGAIL Burgos - Last Filed: 06/28/18 22:12> Initial Vital Signs Initial Vital Signs: Vital Signs Temperature 97.8 F 06/28/18 19:58 Pulse Rate 75 06/28/18 19:58 Respiratory Rate 18 06/28/18 19:58 Blood Pressure 131/86 06/28/18 19:58 Pulse Oximetry 98 06/28/18 19:58 Const General: cooperative and well developed Nutritional Appearance: well nourished Orientation: alert, awake, oriented x3 and not confused [facility] Mouth: oral mucosae normal and moist mucous membranes Eyes Eyelids: eyelids normal Conjunctivae: conjunctivae normal Sclera: sclerae normal Pupils: PERRL EOM: EOM intact bilaterally Resp Effort & Inspection: normal respiratory effort, able to speak in complete sentences, no respiratory distress and no use of accessory muscles Auscultation: clear to auscultation bilaterally, no rales, no rhonchi and no wheezes Cardio Rate: regular rate Rhythm: regular rhythm Heart Sounds: no click, no gallops, no murmurs and no rubs Skin General: no rashes or lesions noted, No jaundice and No petechiae Extrem Other: right foot with erythema to the distal aspect of the right foot along with swelling. Three cm wide ulceration into the ball of the right ft with a 5 mm opening into the middle of the ulceration and draining serosanguineous drainage. Distal sensation is not intact this is not a new finding and due to neuropathy. distal cap refills less than 2 sec. Distal range of motion is intact. <Shruthi Maria DO - Last Filed: 06/28/18 22:46> Initial Vital Signs Initial Vital Signs: Vital Signs Temperature 97.8 F 06/28/18 19:58 Pulse Rate 75 06/28/18 19:58 Respiratory Rate 18 06/28/18 19:58 Blood Pressure 131/86 06/28/18 19:58 Pulse Oximetry 98 06/28/18 19:58 Course <ABIGAIL Burgos - Last Filed: 06/28/18 22:12> Orders Ordered: ED Orders 06/28/18 20:06 Wound Culture and Gram Stain Stat 06/28/18 20:17 XR foot RT min 3V Stat 06/28/18 21:15 Blood Culture Stat Complete Blood Count AUTO DIFF Stat Comprehensive Metabolic Panel Stat Lactate (Lactic Acid) Stat Procalcitonin Stat 06/28/18 22:03 Consult to Physician Routine Acetaminophen (Tylenol) 650 mg PO Q6HR PRN PRN Reason: As Needed for Fever/Mild Pain Hydromorphone HCl (Dilaudid) 2 mg IV Q4HR PRN PRN Reason: Pain, Moderate (4-6) Levofloxacin (Levaquin) 750 mg in 150 mls @ 100 mls/hr IV NOW ONE Stop: 06/28/18 23:32 Sodium Chloride (Normal Saline 0.9%) 1,000 mls @ 100 mls/hr IV CONT CHRISTEL Ondansetron HCl (Zofran) 4 mg IV Q4HR PRN PRN Reason: Nausea And Vomiting Discontinued Medications Vancomycin HCl 2,000 mg/ (Sodium Chloride) 500 mls @ 250 mls/hr IV NOW ONE Stop: 06/28/18 20:18 Last Admin: 06/28/18 21:42 Dose: 250 mls/hr Vital Signs - 8 hr 06/28/18 19:58 06/28/18 22:14 Temperature 97.8 F Pulse Rate 75 85 Respiratory Rate 18 13 Blood Pressure 131/86 Blood Pressure [Left Arm] 118/77 Pulse Oximetry 98 96 <Shruthi Maria DO - Last Filed: 06/28/18 22:46> Orders Ordered: ED Orders 06/28/18 20:06 Wound Culture and Gram Stain Stat 06/28/18 20:17 XR foot RT min 3V Stat 06/28/18 21:15 Blood Culture Stat Complete Blood Count AUTO DIFF Stat Comprehensive Metabolic Panel Stat Lactate (Lactic Acid) Stat Procalcitonin Stat 06/28/18 22:03 Consult to Physician Routine Acetaminophen (Tylenol) 650 mg PO Q6HR PRN PRN Reason: As Needed for Fever/Mild Pain Hydromorphone HCl (Dilaudid) 2 mg IV Q4HR PRN PRN Reason: Pain, Moderate (4-6) Levofloxacin (Levaquin) 750 mg in 150 mls @ 100 mls/hr IV NOW ONE Stop: 06/28/18 23:32 Sodium Chloride (Normal Saline 0.9%) 1,000 mls @ 100 mls/hr IV CONT CHRISTEL Ondansetron HCl (Zofran) 4 mg IV Q4HR PRN PRN Reason: Nausea And Vomiting Discontinued Medications Vancomycin HCl 2,000 mg/ (Sodium Chloride) 500 mls @ 250 mls/hr IV NOW ONE Stop: 06/28/18 20:18 Last Admin: 06/28/18 21:42 Dose: 250 mls/hr Vital Signs - 8 hr 06/28/18 19:58 06/28/18 22:14 Temperature 97.8 F Pulse Rate 75 85 Respiratory Rate 18 13 Blood Pressure 131/86 Blood Pressure [Left Arm] 118/77 Pulse Oximetry 98 96 MDM - Wound/Laceration <ABIGAIL Burgos - Last Filed: 06/28/18 22:12> Lab Data Result diagrams: 06/28/18 21:15 06/28/18 21:15 Lab Results 06/28/18 06/28/18 06/28/18 Range/Units 21:15 21:15 21:15 WBC 17.0 H (4.5-11.0) X10^3/uL RBC 4.21 L (4.5-5.9) X10^6/uL Hgb 13.5 (13.5-17.5) g/dL Hct 39.4 L (41-53) % MCV 93.7 (80-100) fL MCH 32.0 (26-34) PG MCHC 34.2 (30-36) % RDW 14.5 (11.6-14.8) % Plt Count 229 (150-400) X10^3/uL Neut % (Auto) 83.0 H (50-75) % Lymph % (Auto) 6.2 L (25-40) % [place] % (Auto) 9.9 (3-14) % Eos % (Auto) 0.1 L (2-4) % Baso % (Auto) 0.8 (0-2) % Neut # (Auto) 62549 H (7154-6793) /uL Sodium 137 (137-145) mmol/L Potassium 5.3 H (3.4-5.1) mmol/L Chloride 103 (98-107) mmol/L Carbon Dioxide 25 (22-32) mmol/L BUN 43 H (9-20) mg/dL Creatinine 1.50 H (0.66-1.25) mg/dL Estimated GFR 45.6 L (>60) mL/min BUN/Creatinine Ratio 28.7 H (6-22) Glucose 138 H (80-110) mg/dL Lactate (0.7-2.1) mmol/L Calcium 8.8 (8.4-10.2) mg/dL Total Bilirubin 0.9 (0.2-1.3) mg/dL AST 23 (17-59) IU/L ALT 17 L (21-72) IU/L Alkaline Phosphatase 80 (38-126) U/L Total Protein 7.1 (6.3-8.2) g/dL Albumin 3.8 (3.5-5.0) g/dL Globulin 3.3 (1.7-4.1) g/dL Albumin/Globulin Ratio 1.2 (1.0-2.8) Procalcitonin 1.00 H (<0.5) ng/mL 06/28/18 Range/Units 21:15 WBC (4.5-11.0) X10^3/uL RBC (4.5-5.9) X10^6/uL Hgb (13.5-17.5) g/dL Hct (41-53) % MCV (80-100) fL MCH (26-34) PG MCHC (30-36) % RDW (11.6-14.8) % Plt Count (150-400) X10^3/uL Neut % (Auto) (50-75) % Lymph % (Auto) (25-40) % [place] % (Auto) (3-14) % Eos % (Auto) (2-4) % Baso % (Auto) (0-2) % Neut # (Auto) (5650-4899) /uL Sodium (137-145) mmol/L Potassium (3.4-5.1) mmol/L Chloride (98-107) mmol/L Carbon Dioxide (22-32) mmol/L BUN (9-20) mg/dL Creatinine (0.66-1.25) mg/dL Estimated GFR (>60) mL/min BUN/Creatinine Ratio (6-22) Glucose (80-110) mg/dL Lactate 1.9 (0.7-2.1) mmol/L Calcium (8.4-10.2) mg/dL Total Bilirubin (0.2-1.3) mg/dL AST (17-59) IU/L ALT (21-72) IU/L Alkaline Phosphatase (38-126) U/L Total Protein (6.3-8.2) g/dL Albumin (3.5-5.0) g/dL Globulin (1.7-4.1) g/dL Albumin/Globulin Ratio (1.0-2.8) Procalcitonin (<0.5) ng/mL Imaging Data R foot: Radiologist's impression: [place] [address] XRay Report Signed Patient: Billy Cox GMR#: [id number] : 3Acct:[id number] Age/Sex: 73 / MDate of Service: 06/28/18 Loc: ED Accession Number: [id number] Procedure: XR foot RT min 3V Ordering Provider: Joey York PROCEDURE: XR FOOT RT MIN 3V INDICATIONS: ulceration to ball of right foot with erythema to foot TECHNIQUE: 3 views of the foot were acquired. COMPARISON: [facility], CR, XR FOOT LT MIN 3V, 03/13/2018, 20:29. [facility], CR, FOOT 3V RIGHT, 08/01/2017, 14:29. FINDINGS: Bones: There are lateral dislocations of the second and third proximal phalanges relative to their distal metatarsal heads. There is comminuted irregularity of the proximal base of the third proximal phalanx. There is a comminuted granular appearance of the proximal base of the fourth metatarsal at its articulation with the midfoot and fifth metatarsal. Soft tissues: No tibiotalar joint effusion. Vascular cavitations are noted. There is diffuse mid foot soft tissue swelling. IMPRESSION: #1. Lateral dislocations of the right second and third proximal phalanx relative to the metatarsal heads with common fracturing of the proximal base of the third proximal phalanx. #2. Comminuted granular appearance of the proximal fourth metatarsal at its articulation with the midfoot and fifth metatarsal, likely the sequela of chronic repeated trauma. #3. No convincing cortical erosions of the right foot to suggest acute osteomyelitis, although cortical lesions are frequently a late stage finding for osteomyelitis. Dictated by: Elroy Chavez M.D. on 06/28/2018 at 21:01 Approved by: Elroy Chavez M.D. on 06/28/2018 at 21:09 [facility] Narrative Medical decision making narrative: X-ray the right foot was obtained and does show dislocations to to the proximal 5th phalanx is of the 2nd and 3rd digits. No signs of osteomyelitis or seen at this time. White count was elevated at 17 K. Procalcitonin was elevated at 1. Blood cultures were obtained and are pending. Wound culture was obtained and is also pending. He was placed on vancomycin here in the emergency room. due to fast spread of the redness and the swelling discussed case with hospitalist for admission of patient for further IV antibiotics and observation. Discussed case with Dr. Snehal luna who accepted patient. She requested that she also be given Levaquin. Levaquin was ordered as well. He is admitted to inpatient [facility]. <Shruthi Maria, - Last Filed: 06/28/18 22:46> Lab Data Lab Results 06/28/18 06/28/18 06/28/18 Range/Units 21:15 21:15 21:15 WBC 17.0 H (4.5-11.0) X10^3/uL RBC 4.21 L (4.5-5.9) X10^6/uL Hgb 13.5 (13.5-17.5) g/dL Hct 39.4 L (41-53) % MCV 93.7 (80-100) fL MCH 32.0 (26-34) PG MCHC 34.2 (30-36) % RDW 14.5 (11.6-14.8) % Plt Count 229 (150-400) X10^3/uL Neut % (Auto) 83.0 H (50-75) % Lymph % (Auto) 6.2 L (25-40) % [place] % (Auto) 9.9 (3-14) % Eos % (Auto) 0.1 L (2-4) % Baso % (Auto) 0.8 (0-2) % Neut # (Auto) 32646 H (1898-8889) /uL Sodium 137 (137-145) mmol/L Potassium 5.3 H (3.4-5.1) mmol/L Chloride 103 (98-107) mmol/L Carbon Dioxide 25 (22-32) mmol/L BUN 43 H (9-20) mg/dL Creatinine 1.50 H (0.66-1.25) mg/dL Estimated GFR 45.6 L (>60) mL/min BUN/Creatinine Ratio 28.7 H (6-22) Glucose 138 H (80-110) mg/dL Lactate (0.7-2.1) mmol/L Calcium 8.8 (8.4-10.2) mg/dL Total Bilirubin 0.9 (0.2-1.3) mg/dL AST 23 (17-59) IU/L ALT 17 L (21-72) IU/L Alkaline Phosphatase 80 (38-126) U/L Total Protein 7.1 (6.3-8.2) g/dL Albumin 3.8 (3.5-5.0) g/dL Globulin 3.3 (1.7-4.1) g/dL Albumin/Globulin Ratio 1.2 (1.0-2.8) Procalcitonin 1.00 H (<0.5) ng/mL 06/28/18 Range/Units 21:15 WBC (4.5-11.0) X10^3/uL RBC (4.5-5.9) X10^6/uL Hgb (13.5-17.5) g/dL Hct (41-53) % MCV (80-100) fL MCH (26-34) PG MCHC (30-36) % RDW (11.6-14.8) % Plt Count (150-400) X10^3/uL Neut % (Auto) (50-75) % Lymph % (Auto) (25-40) % [place] % (Auto) (3-14) % Eos % (Auto) (2-4) % Baso % (Auto) (0-2) % Neut # (Auto) (7954-6210) /uL Sodium (137-145) mmol/L Potassium (3.4-5.1) mmol/L Chloride (98-107) mmol/L Carbon Dioxide (22-32) mmol/L BUN (9-20) mg/dL Creatinine (0.66-1.25) mg/dL Estimated GFR (>60) mL/min BUN/Creatinine Ratio (6-22) Glucose (80-110) mg/dL Lactate 1.9 (0.7-2.1) mmol/L Calcium (8.4-10.2) mg/dL Total Bilirubin (0.2-1.3) mg/dL AST (17-59) IU/L ALT (21-72) IU/L Alkaline Phosphatase (38-126) U/L Total Protein (6.3-8.2) g/dL Albumin (3.5-5.0) g/dL Globulin (1.7-4.1) g/dL Albumin/Globulin Ratio (1.0-2.8) Procalcitonin (<0.5) ng/mL Discharge Plan Departure Patient Disposition: Admitted As Inpatient Clinical Impression: Cellulitis of foot, right Admit Date/Time: 06/28/18 22:25 Admit Provider: Snehal Luna <Shruthi Maria DO - Last Filed: 06/28/18 22:46> Cosign ED Attending Cosignature Attestation: I was immediately available in the department for consultation. This documentation has been reviewed and I agree with assessment and plan. Case was discussed, patient has cellulitis, no sepsis at this time, but elevated WBC, procalcitonin. Imaging also reviewed and plan for admission to Dr. Luna. Supervised by Shruthi Maria DO
--- NOTE | 2018-06-28 20:17 | DI.RAD.S_ITS ---
PROCEDURE: XR FOOT RT MIN 3V INDICATIONS: ulceration to ball of right foot with erythema to foot TECHNIQUE: 3 views of the foot were acquired. COMPARISON: [facility], CR, XR FOOT LT MIN 3V, 03/13/2018, 20:29. [facility], CR, FOOT 3V RIGHT, 08/01/2017, 14:29. FINDINGS: Bones: There are lateral dislocations of the second and third proximal phalanges relative to their distal metatarsal heads. There is comminuted irregularity of the proximal base of the third proximal phalanx. There is a comminuted granular appearance of the proximal base of the fourth metatarsal at its articulation with the midfoot and fifth metatarsal. Soft tissues: No tibiotalar joint effusion. Vascular cavitations are noted. There is diffuse mid foot soft tissue swelling. IMPRESSION: #1. Lateral dislocations of the right second and third proximal phalanx relative to the metatarsal heads with common fracturing of the proximal base of the third proximal phalanx. #2. Comminuted granular appearance of the proximal fourth metatarsal at its articulation with the midfoot and fifth metatarsal, likely the sequela of chronic repeated trauma. #3. No convincing cortical erosions of the right foot to suggest acute osteomyelitis, although cortical lesions are frequently a late stage finding for osteomyelitis. Dictated by: Elroy Chavez M.D. on 06/28/2018 at 21:01 Approved by: Elroy Chavez M.D. on 06/28/2018 at 21:09
--- NOTE | 2018-06-28 21:20 | ED_ITS ---
HPI - Wound/Laceration <ABIGAIL Burgos - Last Filed: 06/28/18 22:12> General Chief Complaint: Wound/Laceration Stated Complaint: right foot thinks is infected Time Seen by Provider: 06/28/18 19:59 Source: patient Mode of arrival: ambulatory Limitations: no limitations History of Present Illness HPI narrative: 73-year-old male with history of osteoarthritis and is a nonsmoker here for complaint of pain and redness to his right foot. He states that he has had an ulceration to the bottom of his right foot over the past several weeks. He has seen Orthopedics for this and was diagnosed with having dislocations to his metatarsals with a bone causing pressure to the sole of the ft causing the ulceration. He has also been seen for this by his primary care provider. he does state that he was treated with antibiotics for this a few weeks ago however was taken off. He reports he does have drainage from the ulcer is a jacobson that is serosanguineous. He denies any fevers or chills. No trauma to the area. He reports increasing redness and swelling to the area that started yesterday. Redness is to the dorsal aspect of the right foot. Related Data Home Medications Medication Instructions Recorded Confirmed metoprolol tartrate 25 mg PO BID 06/28/18 06/28/18 prednisone 5 mg PO DAILY 06/28/18 06/28/18 tamsulosin 0.4 mg PO DAILY 06/28/18 06/28/18 Allergies Allergy/AdvReac Type Severity Reaction Status Date / Time cortisone [CORTISONE] Allergy Intermediate HALLUCINATI Verified 06/28/18 20:03 ONS Penicillins [PENICILLINS] Allergy Unknown Verified 06/28/18 20:03 Review of Systems <ABIGAIL Burgos - Last Filed: 06/28/18 22:12> Eyes Denies change in vision, Denies eye discharge, Denies irritation and Denies loss of vision ENT Ears, Nose, Mouth, and Throat: Denies change in voice, Denies neck pain and Denies sore throat Cardiovascular Denies chest pain, Denies irregular heart rhythm, Denies lightheadedness, Denies palpitations, Denies dyspnea, Denies dyspnea on exertion and Denies orthopnea Respiratory Denies cough, Denies dyspnea, Denies dyspnea on exertion and Denies wheezing Gastrointestinal Gastrointestinal: Denies abdominal pain, Denies change in bowel habits, Denies diarrhea, Denies nausea and Denies vomiting Genitourinary Denies hematuria, Denies flank pain, Denies urinary incontinence and Denies urinary urgency Musculoskeletal Denies neck pain Comments: right foot redness and swelling Integumentary/Breasts Denies pruritus, Denies erythema, Denies rash and Denies wounds Neurologic Denies confusion and Denies loss of vision Psychiatric Denies anxiety, Denies confusion, Denies depression, Denies homicidal ideation and Denies suicidal ideation Endocrine Denies palpitations Hematologic/Lymphatic Denies easy bruising Allergic/Immunologic Denies wheezing Exam <ABIGAIL Burgos - Last Filed: 06/28/18 22:12> Initial Vital Signs Initial Vital Signs: Vital Signs Temperature 97.8 F 06/28/18 19:58 Pulse Rate 75 06/28/18 19:58 Respiratory Rate 18 06/28/18 19:58 Blood Pressure 131/86 06/28/18 19:58 Pulse Oximetry 98 06/28/18 19:58 Const General: cooperative and well developed Nutritional Appearance: well nourished Orientation: alert, awake, oriented x3 and not confused [facility] Mouth: oral mucosae normal and moist mucous membranes Eyes Eyelids: eyelids normal Conjunctivae: conjunctivae normal Sclera: sclerae normal Pupils: PERRL EOM: EOM intact bilaterally Resp Effort & Inspection: normal respiratory effort, able to speak in complete sentences, no respiratory distress and no use of accessory muscles Auscultation: clear to auscultation bilaterally, no rales, no rhonchi and no wheezes Cardio Rate: regular rate Rhythm: regular rhythm Heart Sounds: no click, no gallops, no murmurs and no rubs Skin General: no rashes or lesions noted, No jaundice and No petechiae Extrem Other: right foot with erythema to the distal aspect of the right foot along with swelling. Three cm wide ulceration into the ball of the right ft with a 5 mm opening into the middle of the ulceration and draining serosanguineous drainage. Distal sensation is not intact this is not a new finding and due to neuropathy. distal cap refills less than 2 sec. Distal range of motion is intact. <Shruthi Maria DO - Last Filed: 06/28/18 22:46> Initial Vital Signs Initial Vital Signs: Vital Signs Temperature 97.8 F 06/28/18 19:58 Pulse Rate 75 06/28/18 19:58 Respiratory Rate 18 06/28/18 19:58 Blood Pressure 131/86 06/28/18 19:58 Pulse Oximetry 98 06/28/18 19:58 Course <ABIGAIL Burgos - Last Filed: 06/28/18 22:12> Orders Ordered: ED Orders 06/28/18 20:06 Wound Culture and Gram Stain Stat 06/28/18 20:17 XR foot RT min 3V Stat 06/28/18 21:15 Blood Culture Stat Complete Blood Count AUTO DIFF Stat Comprehensive Metabolic Panel Stat Lactate (Lactic Acid) Stat Procalcitonin Stat 06/28/18 22:03 Consult to Physician Routine Acetaminophen (Tylenol) 650 mg PO Q6HR PRN PRN Reason: As Needed for Fever/Mild Pain Hydromorphone HCl (Dilaudid) 2 mg IV Q4HR PRN PRN Reason: Pain, Moderate (4-6) Levofloxacin (Levaquin) 750 mg in 150 mls @ 100 mls/hr IV NOW ONE Stop: 06/28/18 23:32 Sodium Chloride (Normal Saline 0.9%) 1,000 mls @ 100 mls/hr IV CONT CHRISTEL Ondansetron HCl (Zofran) 4 mg IV Q4HR PRN PRN Reason: Nausea And Vomiting Discontinued Medications Vancomycin HCl 2,000 mg/ (Sodium Chloride) 500 mls @ 250 mls/hr IV NOW ONE Stop: 06/28/18 20:18 Last Admin: 06/28/18 21:42 Dose: 250 mls/hr Vital Signs - 8 hr 06/28/18 19:58 06/28/18 22:14 Temperature 97.8 F Pulse Rate 75 85 Respiratory Rate 18 13 Blood Pressure 131/86 Blood Pressure [Left Arm] 118/77 Pulse Oximetry 98 96 <Shruthi Maria DO - Last Filed: 06/28/18 22:46> Orders Ordered: ED Orders 06/28/18 20:06 Wound Culture and Gram Stain Stat 06/28/18 20:17 XR foot RT min 3V Stat 06/28/18 21:15 Blood Culture Stat Complete Blood Count AUTO DIFF Stat Comprehensive Metabolic Panel Stat Lactate (Lactic Acid) Stat Procalcitonin Stat 06/28/18 22:03 Consult to Physician Routine Acetaminophen (Tylenol) 650 mg PO Q6HR PRN PRN Reason: As Needed for Fever/Mild Pain Hydromorphone HCl (Dilaudid) 2 mg IV Q4HR PRN PRN Reason: Pain, Moderate (4-6) Levofloxacin (Levaquin) 750 mg in 150 mls @ 100 mls/hr IV NOW ONE Stop: 06/28/18 23:32 Sodium Chloride (Normal Saline 0.9%) 1,000 mls @ 100 mls/hr IV CONT CHRISTEL Ondansetron HCl (Zofran) 4 mg IV Q4HR PRN PRN Reason: Nausea And Vomiting Discontinued Medications Vancomycin HCl 2,000 mg/ (Sodium Chloride) 500 mls @ 250 mls/hr IV NOW ONE Stop: 06/28/18 20:18 Last Admin: 06/28/18 21:42 Dose: 250 mls/hr Vital Signs - 8 hr 06/28/18 19:58 06/28/18 22:14 Temperature 97.8 F Pulse Rate 75 85 Respiratory Rate 18 13 Blood Pressure 131/86 Blood Pressure [Left Arm] 118/77 Pulse Oximetry 98 96 MDM - Wound/Laceration <ABIGAIL Burgos - Last Filed: 06/28/18 22:12> Lab Data Result diagrams: 06/28/18 21:15 06/28/18 21:15 Lab Results 06/28/18 06/28/18 06/28/18 Range/Units 21:15 21:15 21:15 WBC 17.0 H (4.5-11.0) X10^3/uL RBC 4.21 L (4.5-5.9) X10^6/uL Hgb 13.5 (13.5-17.5) g/dL Hct 39.4 L (41-53) % MCV 93.7 (80-100) fL MCH 32.0 (26-34) PG MCHC 34.2 (30-36) % RDW 14.5 (11.6-14.8) % Plt Count 229 (150-400) X10^3/uL Neut % (Auto) 83.0 H (50-75) % Lymph % (Auto) 6.2 L (25-40) % [place] % (Auto) 9.9 (3-14) % Eos % (Auto) 0.1 L (2-4) % Baso % (Auto) 0.8 (0-2) % Neut # (Auto) 41979 H (3526-1778) /uL Sodium 137 (137-145) mmol/L Potassium 5.3 H (3.4-5.1) mmol/L Chloride 103 (98-107) mmol/L Carbon Dioxide 25 (22-32) mmol/L BUN 43 H (9-20) mg/dL Creatinine 1.50 H (0.66-1.25) mg/dL Estimated GFR 45.6 L (>60) mL/min BUN/Creatinine Ratio 28.7 H (6-22) Glucose 138 H (80-110) mg/dL Lactate (0.7-2.1) mmol/L Calcium 8.8 (8.4-10.2) mg/dL Total Bilirubin 0.9 (0.2-1.3) mg/dL AST 23 (17-59) IU/L ALT 17 L (21-72) IU/L Alkaline Phosphatase 80 (38-126) U/L Total Protein 7.1 (6.3-8.2) g/dL Albumin 3.8 (3.5-5.0) g/dL Globulin 3.3 (1.7-4.1) g/dL Albumin/Globulin Ratio 1.2 (1.0-2.8) Procalcitonin 1.00 H (<0.5) ng/mL 06/28/18 Range/Units 21:15 WBC (4.5-11.0) X10^3/uL RBC (4.5-5.9) X10^6/uL Hgb (13.5-17.5) g/dL Hct (41-53) % MCV (80-100) fL MCH (26-34) PG MCHC (30-36) % RDW (11.6-14.8) % Plt Count (150-400) X10^3/uL Neut % (Auto) (50-75) % Lymph % (Auto) (25-40) % [place] % (Auto) (3-14) % Eos % (Auto) (2-4) % Baso % (Auto) (0-2) % Neut # (Auto) (9701-1222) /uL Sodium (137-145) mmol/L Potassium (3.4-5.1) mmol/L Chloride (98-107) mmol/L Carbon Dioxide (22-32) mmol/L BUN (9-20) mg/dL Creatinine (0.66-1.25) mg/dL Estimated GFR (>60) mL/min BUN/Creatinine Ratio (6-22) Glucose (80-110) mg/dL Lactate 1.9 (0.7-2.1) mmol/L Calcium (8.4-10.2) mg/dL Total Bilirubin (0.2-1.3) mg/dL AST (17-59) IU/L ALT (21-72) IU/L Alkaline Phosphatase (38-126) U/L Total Protein (6.3-8.2) g/dL Albumin (3.5-5.0) g/dL Globulin (1.7-4.1) g/dL Albumin/Globulin Ratio (1.0-2.8) Procalcitonin (<0.5) ng/mL Imaging Data R foot: Radiologist's impression: [place] [address] XRay Report Signed Patient: Billy Cox GMR#: [id number] : 3Acct:[id number] Age/Sex: 73 / MDate of Service: 06/28/18 Loc: ED Accession Number: [id number] Procedure: XR foot RT min 3V Ordering Provider: Joey York PROCEDURE: XR FOOT RT MIN 3V INDICATIONS: ulceration to ball of right foot with erythema to foot TECHNIQUE: 3 views of the foot were acquired. COMPARISON: [facility], CR, XR FOOT LT MIN 3V, 03/13/2018, 20:29. [facility], CR, FOOT 3V RIGHT, 08/01/2017, 14:29. FINDINGS: Bones: There are lateral dislocations of the second and third proximal phalanges relative to their distal metatarsal heads. There is comminuted irregularity of the proximal base of the third proximal phalanx. There is a comminuted granular appearance of the proximal base of the fourth metatarsal at its articulation with the midfoot and fifth metatarsal. Soft tissues: No tibiotalar joint effusion. Vascular cavitations are noted. There is diffuse mid foot soft tissue swelling. IMPRESSION: #1. Lateral dislocations of the right second and third proximal phalanx relative to the metatarsal heads with common fracturing of the proximal base of the third proximal phalanx. #2. Comminuted granular appearance of the proximal fourth metatarsal at its articulation with the midfoot and fifth metatarsal, likely the sequela of chronic repeated trauma. #3. No convincing cortical erosions of the right foot to suggest acute osteomyelitis, although cortical lesions are frequently a late stage finding for osteomyelitis. Dictated by: Elroy Chavez M.D. on 06/28/2018 at 21:01 Approved by: Elroy Cahvez M.D. on 06/28/2018 at 21:09 [facility] Narrative Medical decision making narrative: X-ray the right foot was obtained and does show dislocations to to the proximal 5th phalanx is of the 2nd and 3rd digits. No signs of osteomyelitis or seen at this time. White count was elevated at 17 K. Procalcitonin was elevated at 1. Blood cultures were obtained and are pending. Wound culture was obtained and is also pending. He was placed on vancomycin here in the emergency room. due to fast spread of the redness and the swelling discussed case with hospitalist for admission of patient for further IV antibiotics and observation. Discussed case with Dr. Snehal luna who accepted patient. She requested that she also be given Levaquin. Levaquin was ordered as well. He is admitted to inpatient vargas. <Shruthi Maria, - Last Filed: 06/28/18 22:46> Lab Data Lab Results 06/28/18 06/28/18 06/28/18 Range/Units 21:15 21:15 21:15 WBC 17.0 H (4.5-11.0) X10^3/uL RBC 4.21 L (4.5-5.9) X10^6/uL Hgb 13.5 (13.5-17.5) g/dL Hct 39.4 L (41-53) % MCV 93.7 (80-100) fL MCH 32.0 (26-34) PG MCHC 34.2 (30-36) % RDW 14.5 (11.6-14.8) % Plt Count 229 (150-400) X10^3/uL Neut % (Auto) 83.0 H (50-75) % Lymph % (Auto) 6.2 L (25-40) % [place] % (Auto) 9.9 (3-14) % Eos % (Auto) 0.1 L (2-4) % Baso % (Auto) 0.8 (0-2) % Neut # (Auto) 05222 H (8264-4516) /uL Sodium 137 (137-145) mmol/L Potassium 5.3 H (3.4-5.1) mmol/L Chloride 103 (98-107) mmol/L Carbon Dioxide 25 (22-32) mmol/L BUN 43 H (9-20) mg/dL Creatinine 1.50 H (0.66-1.25) mg/dL Estimated GFR 45.6 L (>60) mL/min BUN/Creatinine Ratio 28.7 H (6-22) Glucose 138 H (80-110) mg/dL Lactate (0.7-2.1) mmol/L Calcium 8.8 (8.4-10.2) mg/dL Total Bilirubin 0.9 (0.2-1.3) mg/dL AST 23 (17-59) IU/L ALT 17 L (21-72) IU/L Alkaline Phosphatase 80 (38-126) U/L Total Protein 7.1 (6.3-8.2) g/dL Albumin 3.8 (3.5-5.0) g/dL Globulin 3.3 (1.7-4.1) g/dL Albumin/Globulin Ratio 1.2 (1.0-2.8) Procalcitonin 1.00 H (<0.5) ng/mL 06/28/18 Range/Units 21:15 WBC (4.5-11.0) X10^3/uL RBC (4.5-5.9) X10^6/uL Hgb (13.5-17.5) g/dL Hct (41-53) % MCV (80-100) fL MCH (26-34) PG MCHC (30-36) % RDW (11.6-14.8) % Plt Count (150-400) X10^3/uL Neut % (Auto) (50-75) % Lymph % (Auto) (25-40) % [place] % (Auto) (3-14) % Eos % (Auto) (2-4) % Baso % (Auto) (0-2) % Neut # (Auto) (9501-4643) /uL Sodium (137-145) mmol/L Potassium (3.4-5.1) mmol/L Chloride (98-107) mmol/L Carbon Dioxide (22-32) mmol/L BUN (9-20) mg/dL Creatinine (0.66-1.25) mg/dL Estimated GFR (>60) mL/min BUN/Creatinine Ratio (6-22) Glucose (80-110) mg/dL Lactate 1.9 (0.7-2.1) mmol/L Calcium (8.4-10.2) mg/dL Total Bilirubin (0.2-1.3) mg/dL AST (17-59) IU/L ALT (21-72) IU/L Alkaline Phosphatase (38-126) U/L Total Protein (6.3-8.2) g/dL Albumin (3.5-5.0) g/dL Globulin (1.7-4.1) g/dL Albumin/Globulin Ratio (1.0-2.8) Procalcitonin (<0.5) ng/mL Discharge Plan Departure Patient Disposition: Admitted As Inpatient Clinical Impression: Cellulitis of foot, right Admit Date/Time: 06/28/18 22:25 Admit Provider: Snehal Luna <Shruthi Maria DO - Last Filed: 06/28/18 22:46> Cosign ED Attending Cosignature Attestation: I was immediately available in the department for consultation. This documentation has been reviewed and I agree with assessment and plan. Case was discussed, patient has cellulitis, no sepsis at this time, but elevated WBC, procalcitonin. Imaging also reviewed and plan for admission to Dr. Luna. Supervised by Shruthi Maria DO
[2018-06-28 21:28] LABS: Add Manual Diff / Slide Review NO; Basophils Percent Auto 0.8 % (0-2); Eosinophils Percent Auto 0.1 % (2-4); Hematocrit 39.4 % (41-53); Hemoglobin 13.5 g/dL (13.5-17.5); Lymphocytes Percent Auto 6.2 % (25-40); Mean Corpuscular HGB Conc 34.2 % (30-36); Mean Corpuscular Volume 93.7 fL (80-100); Monocytes Percent Auto 9.9 % (3-14); Neutrophils Absolute Auto 14100 /uL (3000-5900); Platelet Count 229 X10^3/uL (150-400); Red Blood Cell Count 4.21 X10^6/uL (4.5-5.9); Red Cell Distribution Width 14.5 % (11.6-14.8)
[2018-06-28 21:34] LABS: Lactate (Lactic Acid) 1.9 mmol/L (0.7-2.1)
[2018-06-28 21:37] LABS: Alanine Aminotransferase 17 IU/L (21-72); Albumin 3.8 g/dL (3.5-5.0); Albumin Globulin Ratio 1.2 (1.0-2.8); Alkaline Phosphatase 80 U/L (38-126); Aspartate Aminotransferase 23 IU/L (17-59); BUN Creatinine Ratio 28.7 (6-22); Bilirubin Total 0.9 mg/dL (0.2-1.3); Blood Urea Nitrogen 43 mg/dL (9-20); Calcium 8.8 mg/dL (8.4-10.2); Carbon Dioxide 25 mmol/L (22-32); Chloride 103 mmol/L (98-107); Estimated Glomerular Filt Rate 45.6 mL/min (>60); Globulin 3.3 g/dL (1.7-4.1); Glucose 138 mg/dL (80-110); HEMOLYSIS < 15 (0-50); Sodium 137 mmol/L (137-145); Total Protein 7.1 g/dL (6.3-8.2)
[2018-06-28 21:40] LABS: Potassium 5.3 mmol/L (3.4-5.1)
[2018-06-28] MEDS: VANCOMYCIN 2,000 MG in SODIUM CHLORIDE 0.9% 500 ML 250 ML IV (21:42)
[2018-06-28 22:14] VITALS: BP 118/77; PULSE 85; RESP 13; O2SAT 96
[2018-06-28 22:46] VITALS: BMI 27.8
[2018-06-28 22:51] VITALS: BP 127/77; PULSE 85; RESP 19; TEMP 36.8; O2SAT 99
--- NOTE | 2018-06-28 23:02 | PC.NURSE ---
Pt to room 205 from E.R. via stretcher accompanied by son. Able to move self from stretcher to bed. Right foot wound to plantar aspect draining scant amount serous fluid. Photos taken and right foot dressed with bulky 4 x 4's to absorb moisture and secured with kerlix wrap. Elevated on pillows x 2. 1-2+ pitting edema to right foot. Erythema present and outlined. IV Vanco infusing upon arrival from E.R. to right AC iv site without difficulty.
[2018-06-28 23:35] VITALS: BP 107/68; PULSE 81; RESP 18; TEMP 36.7; O2SAT 96
[2018-06-29] MEDS: SODIUM CHLORIDE 0.9% 1,000 ML 100 ML IV ×2 (00:13→11:44)
[2018-06-29] MEDS: levoFLOXacin 750 MG/150 ML PIGGYBACK 100 MG IV (00:14)
--- NOTE | 2018-06-29 04:18 | PC.NURSE ---
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 The dressing to the right foot that was placed by this evening is CDI, the erythema that had been marked at that time is receding. Placed on contact precautions for gram + cocci wound culture pending final result. Bed alarm on for safety.
[2018-06-29 05:00] VITALS: BP 120/71; PULSE 85; RESP 20; TEMP 36.5; O2SAT 95
[2018-06-29 08:28] VITALS: BP 126/81; PULSE 79; RESP 18; TEMP 36.7; O2SAT 92
--- NOTE | 2018-06-29 12:15 | CM.DANOTE ---
Discharge Planning/Care Management DCP: assessment: case received, EMR reviewed. (ER note available. No H&P yet in EMR). Met with pt and introduced self and role. Pt is a 73 year old male who admitted last night to care of hospitalist team. Dr. Renteria has checked in on pt and discussed POC with KEN Pablo. She will be in later today to see pt. PCP: Dr. Victor. [facility] Admission status: confirmed by UR KEN Weiner as INPT. (06/28>) Pt is a/o and lives with his in [place]. He says he has been struggling with this foot for some time and has been seeing orthopedics as well as his PCP in outpt setting. Currently foot wound draining is cultured, sensitivities are pending and a PICC line has been ordered. P: Follow as POC unfolds and d/c needs become clearer. CM Discharge Assessment Start: 06/29/18 12:14 Freq: Status: Active Protocol: Document 06/29/18 12:14 ITV (Rec: 06/29/18 12:15 ITV [id number]) Discharge Planning Assessment Advance Directives? Yes Advance Directives on File Yes History Provided By Patient Medical Record Prior Living Arrangements House Household Members spouse Whiteboard Updated in Patient Room with Yes name and ext. # of Fire Manager Review Status In Process Next Review Type Continued Stay Review
[2018-06-29 12:35] VITALS: BP 111/76; PULSE 70; RESP 18; TEMP 36.7; O2SAT 95
--- NOTE | 2018-06-29 13:00 | DI.RAD.S_ITS ---
PROCEDURE: XR CHEST FOR PICC 1V INDICATIONS: IV antibiotics COMPARISON: [facility], , CHEST 1 VIEW, 07/21/2014, 0:31. FINDINGS: PICC was placed by the intravenous therapy team from the right side. Fluoroscopic spot film demonstrates tip of PICC in the distal SVC. IMPRESSION: Tip of PICC lies within the distal SVC. Dictated by: Goldie Stevens MD, PhD on 06/29/2018 at 15:36 Approved by: Goldie Stevens MD, PhD on 06/29/2018 at 15:36
--- NOTE | 2018-06-29 14:26 | PM.HP.1 ---
History of Present Illness Date Patient Seen: 06/29/18 Chief complaint: right foot thinks is infected Narrative: The patient is a 73 y/o male with a history of Rheumatoid Arthritis who was in his usual state of health until about 3 weeks ago, when he noted pain in the right foot, drainage from the plantar surface and deformative of the toes of the right foot. The patient was seen by his PCP and Orthopedist. He was treated with antibiotics, but after completion developed redness of the forefoot and toes of the right foot. The right foot is warm, swollen, and weeping from the bottom. He reports chills and fever over the weekend. He has neuropathy in the foot with minimal sensation. The patient was evaluated in the ED and found to have cellulitis of the right foot. Xrays of the foot and ankle did not confirm osteomyelitis, but did reveal deformities of the toes Patient History Medical History Bilateral arm fractures (Acute) Leg fracture, right (Acute) Prostate cancer (Acute) Neuropathy (Acute) Rheumatoid arthritis (Acute) Surgical History History of appendectomy (Acute) History of right knee joint replacement (Acute) Family & Social History Social History: household members spouse Prior Living Arrangements House Safety & Behavioral: Feels Safe in Current Yes Environment Been Physically Hurt or No Threatened By a Person Suicidal Ideation Description None Suicide Plan Description No Plan Tobacco & Substance use: Smoking Status Never smoker alcohol intake never alcohol intake frequency 0-2 drinks per day Substance Use Type does not use Meds Home Medications Medication Instructions Recorded Confirmed Type metoprolol tartrate 25 mg PO BID 06/28/18 06/28/18 History prednisone 5 mg PO DAILY 06/28/18 06/28/18 History tamsulosin 0.4 mg PO DAILY 06/28/18 06/28/18 History Allergies Allergy/AdvReac Type Severity Reaction Status Date / Time cortisone [CORTISONE] Allergy Intermediate HALLUCINATI Verified 06/28/18 20:03 ONS Penicillins [PENICILLINS] Allergy Unknown Verified 06/28/18 20:03 Review of Systems Review of Systems All systems reviewed & are unremarkable except as noted in HPI and below Exam Vital Signs (past 8 hours): - 06/29/18 08:28 06/29/18 12:35 Temperature 98.1 F 98.0 F Pulse Rate 79 70 Respiratory Rate 18 18 Blood Pressure 126/81 111/76 Pulse Oximetry 92 95 Oxygen Delivery Method Room Air Narrative Exam Narrative: Pleasant male in no acute distress HEENT: NC/AT, EOMI, Oropharynx: poor dentition, mucus membranes without lesions NECK: Supple without adenopathy Lungs: Clear to auscultation CV: RRR nl Sl S2 Abd: Soft/ non tender/ non distended Ext: Left foot with deformity of digits 2, 3,4 Right foot with erythema, edema, warmth, 3/4 digits deformed, plantar surface with open ulcer draining serous exudated, pulses easily palpated Neuro: NOn focal Objective Labs Result Diagrams: 06/28/18 21:15 06/28/18 21:15 Labs: Laboratory Results - last 24 hr 06/28/18 06/28/18 06/28/18 21:15 21:15 21:15 WBC 17.0 H RBC 4.21 L Hgb 13.5 Hct 39.4 L MCV 93.7 MCH 32.0 MCHC 34.2 RDW 14.5 Plt Count 229 Neut % (Auto) 83.0 H Lymph % (Auto) 6.2 L [place] % (Auto) 9.9 Eos % (Auto) 0.1 L Baso % (Auto) 0.8 Neut # (Auto) 18698 H Sodium 137 Potassium 5.3 H Chloride 103 Carbon Dioxide 25 BUN 43 H Creatinine 1.50 H Estimated GFR 45.6 L BUN/Creatinine Ratio 28.7 H Glucose 138 H Lactate Calcium 8.8 Total Bilirubin 0.9 AST 23 ALT 17 L Alkaline Phosphatase 80 Total Protein 7.1 Albumin 3.8 Globulin 3.3 Albumin/Globulin Ratio 1.2 Procalcitonin 1.00 H 06/28/18 21:15 WBC RBC Hgb Hct MCV MCH MCHC RDW Plt Count Neut % (Auto) Lymph % (Auto) [place] % (Auto) Eos % (Auto) Baso % (Auto) Neut # (Auto) Sodium Potassium Chloride Carbon Dioxide BUN Creatinine Estimated GFR BUN/Creatinine Ratio Glucose Lactate 1.9 Calcium Total Bilirubin AST ALT Alkaline Phosphatase Total Protein Albumin Globulin Albumin/Globulin Ratio Procalcitonin Assessment & Plan (1) Cellulitis of foot, right: Problem details: Wound is growing Staph Aureus. Will continue Vancomycin for now and await final sensitivities May need podiatry/Ortho consult for debridement Current visit: Yes Status: Acute (2) Acute renal failure: Problem details: Continue IV hydration and follow up in am Current visit: Yes Status: Acute (3) Rheumatoid arthritis: Problem details: Continue prednisone Current visit: Yes Status: Acute (4) Hypertension: Problem details: Continue Metoprolol Current visit: Yes Status: Acute Quality VTE Deep Vein Thrombosis/Pulmonary Embolism Present on Admission: No
[2018-06-29] MEDS: VANCOMYCIN 1,000 MG/200 ML FROZ.PIGGY 200 MG IV (14:28)
[2018-06-29] MEDS: ENOXAPARIN 40 MG/0.4 ML SYRINGE SUBCUT (14:36)
[2018-06-29] MEDS: METOPROLOL ER 25 MG TABLET PO ×2 (14:37→21:52)
[2018-06-29] MEDS: TAMSULOSIN 0.4 MG CAPSULE PO (14:37)
[2018-06-29] MEDS: DOCUSATE 100 MG CAPSULE PO ×2 (14:37→21:52)
[2018-06-29] MEDS: predniSONE 5 MG TABLET PO (14:39)
[2018-06-29] MEDS: predniSONE 2.5 MG TABLET 5 MG PO (14:40)
[2018-06-29 16:10] LABS: Acinetobacter baumannii Not Detected (Not Detect); E. coli Not Detected (Not Detect); Enterobacter cloacae complex Not Detected (Not Detect); Enterobacteriaceae species Not Detected (Not Detect); Enterococcus species Not Detected (Not Detect); Listeria monocytogenes Not Detected (Not Detect); Methicillin-resistant gene Not Detected (Not Detect); Proteus species Not Detected (Not Detect); Staphylococcus species Detected (Not Detect); Streptococcus agalactiae (Gr B Not Detected (Not Detect); Streptococcus pneumonia Not Detected (Not Detect); Streptococcus pyogenes (Gr A) Not Detected (Not Detect); Streptococcus species Not Detected (Not Detect)
[2018-06-29 16:11] LABS: Candida albicans Not Detected (Not Detect); Candida glabrata Not Detected (Not Detect); Candida krusei Not Detected (Not Detect); Candida parapsilosis Not Detected (Not Detect); Candida tropicalis Not Detected (Not Detect); Haemophilus influenzae Not Detected (Not Detect); Neisseria meningitidis Not Detected (Not Detect); Pseudomonas aeruginosa Not Detected (Not Detect); Serratia marcescens Not Detected (Not Detect)
[2018-06-29 16:15] VITALS: BP 125/78; PULSE 83; RESP 19; TEMP 36.5; O2SAT 98
[2018-06-29] MEDS: CEFAZOLIN 2 GM/100 ML FROZ.PIGGY IV (18:00)
[2018-06-29 21:33] VITALS: BP 124/76; PULSE 81; RESP 20; TEMP 36.6; O2SAT 98
[2018-06-29 23:15] VITALS: BP 139/82; PULSE 82; RESP 18; TEMP 36.4; O2SAT 97
[2018-06-30] VITALS (10 sets, daily range): BP systolic 118–145; BP diastolic 68–86; PULSE 74–122; RESP 17–19; TEMP 36.6–37; O2SAT 94–97
--- NOTE | 2018-06-30 | DI.MRI.S_ITS ---
PROCEDURE: MR FOOT RT WO/W CON INDICATIONS: Infection on right foot pad TECHNIQUE: Noncontrast coronal T1 spin echo and STIR, sagittal T1 spin echo with fat saturation and STIR, axial T1 spin echo and T2 fast spin echo with fat saturation. After the administration of contrast, axial/sagittal/coronal T1 spin echo with fat saturation through the right foot. COMPARISON: [facility], MR, MR FOOT LT WO/W CON, 03/31/2018, 17:27. [facility], MR, FOOT WITHOUT CONTRAST, 12/10/2017, 8:00. [facility], MR, ANKLE WITHOUT CONTRAST, 12/05/2017, 7:13. [facility], MR, MR PELVIS WO CON, 12/14/2015, 14:01. [facility] right foot radiographs 06/28/18. FINDINGS: Image quality: Excellent. Bones: There are cortical erosions of the distal aspect of the second metatarsal and second proximal phalanx with associated marrow signal abnormality. There is extensive adjacent soft tissue edema with a possible skin defect along the plantar surface. There is again lateral dislocation of the second proximal phalanx relative to the second metatarsal head. There is marrow signal abnormality at the proximal base of the third proximal phalanx. There is marrow signal abnormality consisting of increased T2 and decreased T1 signal within the lateral mid foot involving the third, fourth, and fifth tarsometatarsal articulations, particularly at the base of the fourth metatarsal, the fifth metatarsal, and the anterior cuboid. Soft tissues: There is diffuse contrast enhancement and irregular soft tissue signal throughout the foot consistent with foot edema. There is a possible 1.5 cm peripherally enhancing fluid collection located inferior to the proximal diaphysis of the second metatarsal. IMPRESSION: #1. Cortical erosions and abnormal marrow signal of the distal aspect of the right second metatarsal and proximal aspect of the right second proximal phalanx consistent with osteomyelitis with extensive adjacent soft tissue edema. There is a possible 1.5 cm peripherally enhancing fluid collection inferior to the proximal diaphysis of the second metatarsal, which may represent a developing abscess. The second proximal phalanx remains dislocated laterally from the second metatarsal head. #2. Abnormal signal within the proximal base of the right third proximal phalanx may represent additional osteomyelitis versus chronic degenerative change. #3. Abnormal signal within the lateral mid foot involving the third, fourth, and fifth tarsometatarsal articulations may represent additional osteomyelitis versus chronic degenerative change. Dictated by: Elroy Chavez M.D. on 06/30/2018 at 22:27 Approved by: Elroy Chavez M.D. on 06/30/2018 at 22:50
[2018-06-30] MEDS: SODIUM CHLORIDE 0.9% 1,000 ML 100 ML IV ×2 (01:11→12:17)
[2018-06-30] MEDS: CEFAZOLIN 2 GM/100 ML FROZ.PIGGY IV ×3 (01:11→17:49)
[2018-06-30 06:56] LABS: Add Manual Diff / Slide Review NO; Basophils Percent Auto 0.5 % (0-2); Eosinophils Percent Auto 2.5 % (2-4); Hematocrit 36.9 % (41-53); Hemoglobin 12.7 g/dL (13.5-17.5); Lymphocytes Percent Auto 15.2 % (25-40); Mean Corpuscular HGB Conc 34.4 % (30-36); Mean Corpuscular Hemoglobin 31.9 PG (26-34); Mean Corpuscular Volume 92.6 fL (80-100); Monocytes Percent Auto 7.9 % (3-14); Neutrophils Absolute Auto 6000 /uL (3000-5900); Neutrophils Percent Auto 73.9 % (50-75); Platelet Count 231 X10^3/uL (150-400); Red Blood Cell Count 3.98 X10^6/uL (4.5-5.9); Red Cell Distribution Width 14.1 % (11.6-14.8); White Blood Cell Count 8.1 X10^3/uL (4.5-11.0)
[2018-06-30 07:05] LABS: BUN Creatinine Ratio 24.4 (6-22); Blood Urea Nitrogen 22 mg/dL (9-20); Calcium 8.4 mg/dL (8.4-10.2); Carbon Dioxide 23 mmol/L (22-32); Chloride 107 mmol/L (98-107); Estimated Glomerular Filt Rate > 60.0 mL/min (>60); Glucose 105 mg/dL (80-110); HEMOLYSIS < 15 (0-50); Potassium 3.8 mmol/L (3.4-5.1); Sodium 140 mmol/L (137-145)
[2018-06-30] MEDS: predniSONE 5 MG TABLET PO (09:19)
[2018-06-30] MEDS: TAMSULOSIN 0.4 MG CAPSULE PO (09:19)
[2018-06-30] MEDS: METOPROLOL ER 25 MG TABLET PO ×2 (09:20→20:35)
[2018-06-30] MEDS: ENOXAPARIN 40 MG/0.4 ML SYRINGE SUBCUT (09:20)
--- NOTE | 2018-06-30 10:06 | PT.IIE ---
Addendum entered and electronically signed by Silva Perry PT 06/30/18 13:49: I certify I directly supervised and guided this session. Raine Perry DPT Original Note: Current Diagnoses Essential (primary) hypertension (06/28/18) Cellulitis of right lower limb (06/28/18) Rheumatoid arthritis, unspecified (06/28/18) Acute kidney failure, unspecified (06/28/18) Surgical History (Last Updated 06/28/18 @ 23:18 by Columba Child, RN) History of appendectomy (Acute) History of right knee joint replacement (Acute) Medical History (Last Updated 06/28/18 @ 23:18 by Columba Child, KEN) Bilateral arm fractures (Acute) Leg fracture, right (Acute) Prostate cancer (Acute) Neuropathy (Acute) Rheumatoid arthritis (Acute) Physical Therapy Inpatient Evaluation/Re-Eval M1 PT/OT-IP Prior Functional Status Start: 06/30/18 10:58 Freq: NEEDED Status: Active Protocol: Document 06/30/18 10:06 (Rec: 06/30/18 11:24 [email or web address]) Medical Review Prior Functional Status Medical History Reviewed Yes Communication No deficits noted. Mobility and Gait Pt previously independent with all mobilities. He states ambulation tolerances are limited to 50 ft using no AD. He uses the [employer]Sesame scooter for all shopping. Social History Household Members spouse Living Arrangements House Number of Floors (Floors) One Floor Number of Stairs To Enter/Railing? Ramp to enter. Home Environment High Toilet Walk in Shower Home Equipment Front Wheel Walker Hand Held Shower Grab Bars Near Toilet Employment Status Retired Additional Social History Comment Pt lives with who is also retired and can assist him 24 / if needed. His son avaliable for intermittent assist. Pt also owns [employer] [facility] mechanical bed (HOB and feet can up/down). Pt also owns offloading shoes. M2 PT-IP Current Condition Start: 06/30/18 10:58 Freq: NEEDED Status: Active Protocol: Document 06/30/18 10:06 (Rec: 06/30/18 11:24 [email or web address]) Physical Therapy Current Condition Current Condition Evaluation Date 06/30/18 Treatment Diagnosis R foot cellulitis; impaired mobility Onset Date 06/28/18 Precautions Other Precautions Contact precautions Weight Bearing Status Weight Bearing Status Weight Bear as Tolerated Allowed Weight Bearing Amount (enter % Pt has no formal weight or #) (%) bearing precautions, but current activity orders are bed rest with bathroom privelages. Pt advised by PT to limit ambulation/standing until infection is further resolved. M3 PT-IP Subjective Start: 06/30/18 10:58 Freq: NEEDED Status: Active Protocol: Document 06/30/18 10:06 (Rec: 06/30/18 11:24 [email or web address]) Subjective Physical Therapy Visit Type Type Initial Evaluation Visit Start Time 10:06 Visit Stop Time 10:50 Total Visit Minutes 44 Number of INSPECTOR INSULATION Visits 0 Physical Therapy Visit Comments Patient Comments Pt agreeable to mobilize with PT. Patient Goals Pt planning to d/c home with . Therapy Pain Assessment Pain When Pain Assessed At Rest Pain Present Pain Present Denied Pain M4 PT-IP Mobility and Gait Start: 06/30/18 10:58 Freq: NEEDED Status: Active Protocol: Document 06/30/18 10:06 (Rec: 06/30/18 11:24 [email or web address]) PT-Bed Mobility Assessment Supine to Sit Supine to Sit Standby Assistance Head of Bed Elevated Sit to Supine Sit to Supine Standby Assistance Head of Bed Elevated Scooting Scooting to Edge of Bed Independent Scooting Up and Down in Bed Independent PT-Transfer Assessment Sit to and From Stand Sit to and from Stand Standby Assistance Equipment Transfer Assistive Device None Front Wheeled Walker Orthotic/Prosthetic Devices or Brace: No Transfers Transfer Destination Bed Transfer Technique Ambulated in room to/from bed. Comments Mobility Comments Assessed pt with fww and without AD for sit <> stand. He needed cuing for sit <> stand with fww SBA. Without AD, pt performs sit <> stand from toilet SBA. Bed mobility including scooting, supine <> sit is independent. Gait Assessment Gait Gait Assistance Required: Standby Assistance Distance (Feet) 60 Able to Maintain Weight Bearing Status Yes During Gait Assistive Devices Assistive Device None Gait Belt Front Wheeled Walker Orthotic/Prosthetic Devices or Brace: No Gait Deviations General Gait Pattern Within Normal Limits Factors Limiting Gait Function Factors Limiting Gait Function Decreased Activity Tolerance Decreased Sensation Decreased Strength Limited Range of Motion Poor Balance Poor Safety Awareness Comments Gait Comments Assessed pt ambulation 15 ft with fww SBA. Despite max cues, pt impulsive and pushing fww far in front of him and picks it up instead of rolling . Assessed ambulation 60 ft in room without AD, pt is SBA, no LOB, gait mechanics WNL. PT-Balance Assessment Sitting Balance and Reactions Static Sitting Balance Ability Good Dynamic Sitting Balance Ability Good Standing Balance and Reactions Static Standing Balance Ability Good Dynamic Standing Balance Ability Fair Device Used none M5 PT-IP Objective Assessments Start: 06/30/18 10:58 Freq: NEEDED Status: Active Protocol: Document 06/30/18 10:06 (Rec: 06/30/18 11:24 [email or web address]) Orientation Orientation/Cognition Level of Alertness Alert Orientation Name Age Birthday Month Date Year Day of Week Place Situation Language Function Ability No Deficits Noted Safety Awareness Decreased Safety Awareness Gross Range of Motion Lower Extremity ROM Assessment Within Functional Limits Strength Lower Extremity Strength Assessment Within Functional Limits Sensation Assessment Sensation Light Touch Absent Sensation Description Numbness Comments Sensation Comments Light touch sensation is absent in stocking-glove distribution B feet, distal to mid calf. Pt states you could stick a knife in his feet and he wouldn't know. M6 PT-IP Treatment Start: 06/30/18 10:58 Freq: NEEDED Status: Active Protocol: Document 06/30/18 10:06 (Rec: 06/30/18 11:24 [email or web address]) Physical Therapy Treatment Exercises Exercises Ankle Pumps Quad Sets Heel Slides Education Education Provided Safety Other Treatments Other Treatment Performed Pt education regarding inspecting shoe wear and feet before and after ambulation. Ankle pumps X20; Heel slides X20; Quad sets X20. Pt instructed to follow up on these exercises every hour to maintain strength and improve circulation and healing of R foot. M7 PT-IP Assessment and Plan Start: 06/30/18 10:58 Freq: NEEDED Status: Active Protocol: Document 06/30/18 10:06 (Rec: 06/30/18 11:24 [email or web address]) PT Summary Assessment and Plan Potential Rehabilitation Potential Good Status of Condition at Evaluation Stable Summary Impairments ROM Strength Balance Sensation Transfers Gait Activity Tolerance Progress Towards Goals Progressing Toward Goals Assessment Summary Pt with R foot ulcer and cellulitis. At this time the pt is at his stated baseline functional mobility. He was able to ambulate 75 ft in room using no AD SBA and was SBA with sit <> stand transfers including from a low toilet seat without use of UE. He was educated in HEP to maintain strength and improve circulation for healing. At this time it is anticipated that he will be safe in his home environment and recommend d/c to home with 24/7 assist when pt is medically stable. D/c from PT program at this time pending change in pt status as he has no further goals for functional mobility to address at this time in the acute care setting. Goals Bed Mobility Goal Independent Transfer Goal Independent Gait Goal Independent Frequency of Treatment Frequency Of Treatment Discharge Recommendations To Nursing Amount of Assist Needed Standby Assistance Discharge Recommendations PT Discharge Recommendations Home with 24/7 Assist
--- NOTE | 2018-06-30 12:17 | OT.IP.TRT ---
Current Diagnoses Essential (primary) hypertension (06/28/18) Cellulitis of right lower limb (06/28/18) Rheumatoid arthritis, unspecified (06/28/18) Acute kidney failure, unspecified (06/28/18) Occupational Therapy Treatment Note M3 OT- IP Subjective and Pain Start: 06/30/18 13:19 Freq: Status: Active Protocol: Document 06/30/18 12:17 MALACHI (Rec: 06/30/18 13:22 MALACHI [id number]) OT- Subjective Occupational Therapy Visit Type Type Administrative Note Visit Start Time 12:10 Visit Stop Time 12:17 Total Visit Minutes 7 Notes OT referral received. Brief ADL interview completed with pt. He has been independent with ambulating to bathroom with IV pole, toileting, grooming at the sink and dressing here. He uses diabetic shoes with velcro closure over R foot bandage. Pt is planning to obtain shower seat for home use. No OT goals identified for this admission as pt appears to be at baseline level of function. No charge.
--- NOTE | 2018-06-30 12:55 | CM.DPC ---
DCP: continued: Case discussed in Team Rounds. Dr. Renteria in consulting podiatry. She confirms culture : MSSA DCP team will continue to follow. Pt may benefit from snf stay at d/c.
--- NOTE | 2018-06-30 15:14 | P.PN_ITS ---
Subjective Date Patient Seen: 06/30/18 Interval history: Overall he feels like his foot is getting better. He still has drainage from the ulcer on the plantar surface Exam Vital Signs (past 8 hours): - 06/30/18 07:50 06/30/18 09:20 06/30/18 09:25 Temperature 98.1 F Pulse Rate 74 81 Respiratory Rate 17 Blood Pressure 120/71 136/80 Pulse Oximetry 94 96 Oxygen Delivery Method Room Air Oxygen Flow Rate 0 Narrative Exam Narrative: Pleasant gentleman Lungs: clear to auscultation CV: RRR nl Sl S2 ABd: Soft/non tender Ext: right foot with decreased erythema, still warm, base of foot with 1 cm open area draining clear fluid Objective Labs Result Diagrams: 06/30/18 06:35 06/30/18 06:35 Labs: Laboratory Results - last 24 hr 06/29/18 06/30/18 06/30/18 14:30 06:35 06:35 WBC 8.1 D RBC 3.98 L Hgb 12.7 L Hct 36.9 L MCV 92.6 MCH 31.9 MCHC 34.4 RDW 14.1 Plt Count 231 Neut % (Auto) 73.9 Lymph % (Auto) 15.2 L [place] % (Auto) 7.9 Eos % (Auto) 2.5 Baso % (Auto) 0.5 Neut # (Auto) 6000 H Sodium 140 Potassium 3.8 D Chloride 107 Carbon Dioxide 23 BUN 22 H Creatinine 0.90 Estimated GFR > 60.0 BUN/Creatinine Ratio 24.4 H Glucose 105 Calcium 8.4 A. baumannii (PCR) Not detected Rossy albicans (PCR) Not detected C. glabrata (PCR) Not detected C. krusei (PCR) Not detected C. parapsilosis (PCR) Not detected C. tropicalis (PCR) Not detected Enterobacteriac sp PCR Not detected E. cloacae complex PCR Not detected Enterococcus sp PCR Not detected E. coli (PCR) Not detected H. influenzae (PCR) Not detected Klebsiella oxytoca PCR Not detected Klebsiella pneumoniae Not detected List. monocytogenes PCR Not detected N. meningitidis (PCR) Not detected Proteus species (PCR) Not detected Serratia marcescens PCR Not detected Staphylococcus sp PCR Detected H Staph aureus (PCR) Detected H mecA-Methicil Res Gene Not detected Streptococcus sp PCR Not detected Group A Strep (PCR) Not detected Strep agalactiae (PCR) Not detected Strep pneumoniae (PCR) Not detected P. aeruginosa (PCR) Not detected Jose/B-Vanco Res Genes Not Reportable KPC-Carbap Res Gene PCR Not Reportable Assessment & Plan (1) Hypertension: Problem details: Continue Metoprolol Current visit: Yes Status: Acute (2) Rheumatoid arthritis: Problem details: Continue prednisone Current visit: Yes Status: Acute (3) Acute renal failure: Problem details: Continue IV hydration and follow up in am. Significantly improved Current visit: Yes Status: Acute (4) Cellulitis of foot, right: Problem details: Wound is growing Staph Aureus. Will continue Vancomycin for now and await final sensitivities May need podiatry/Ortho consult for debridement Staph is Methicillin Sensitive, Will obtain MRI to determine if debridement indicated. On Cefazolin for now. Current visit: Yes Status: Acute Quality VTE Deep Vein Thrombosis/Pulmonary Embolism Present on Admission: No
--- NOTE | 2018-06-30 15:49 | PC.NURSE ---
Update given to pt's son Davon at 1545 per request by pt and son. Plan for dinner tonight, NPO at Midnight, per Dr. Bell and awaiting MRI of foot. Pt aware also. Right foot dressing re-dressed at 1130 today, no discomfort noted. Old dressing had moderate amount of serous/purulent drainage. Area cleansed with NS, sterile gauze, placed and covered with Abd pad and kerlix wrap.
--- NOTE | 2018-06-30 16:06 | PM.CN ---
History of Present Illness Date Patient Seen: 06/30/18 Time Patient Seen: 16:06 Chief complaint: right foot thinks is infected Reason for consult: Right foot draining wound Requesting provider: Cassidy Renteria Narrative: Mr. Cox is a 73 year old male with a draining right foot plantar wound and bacteremia Staph aureus. The patient is a patient of Dr. Addy MONTALVO. The patient states that he has had a draining wound on the plantar aspect of his foot under his 2nd metatarsal head for approximately 4 weeks. States he was referred by Dr. Daly to Dr. Barry MONTALVO but has not seen him yet and was scheduled to see him in approximately 2 days. Patient was to be seen for evaluation possible surgery. The patient has a diagnosis of rheumatoid arthritis and has a foot problems with both feet intermittently in the past. Patient states he has been on oral antibiotics for approximately 1 week. He states he had a culture in Dr. Daly office that did not grow back any active bacteria. He states in the past he has been seen [facility] with Dr. Walton but not for this wound. And Dr. Walton has just taken over at his primary care provider. He denies any fevers chills nausea vomiting but noticed the foot getting redder and the 2nd toe more swollen and his was a former nurse advised him to come to the hospital. This had persistent thin liquid drainage from the 2nd metatarsal plantar ulcer. The patient understands that his 2nd and 3rd metatarsal phalangeal joints on that foot are dislocated similar to the other side. He understands that this is causing abnormal pressures on his plantar foot. Patient gets Remicade for his rheumatoid arthritis approximately every 5 weeks. His last dose was 2 weeks ago. He also takes 5 mg prednisone daily. He notes when he had cellulitis on the other foot he had to stay off his Remicade for about 3 months. He denies being on any blood thinners. He denies any history of neck problems with his rheumatoid arthritis. He denies fevers or chills. He notices swelling. He endorses lateral foot pain. Does state not too long ago he had increased right shoulder pain and he bumped his prednisone up to about 60 mg a day which resolved this. [facility] Medical History Bilateral arm fractures (Acute) Leg fracture, right (Acute) Prostate cancer (Acute) Neuropathy (Acute) Rheumatoid arthritis (Acute) Surgical History History of appendectomy (Acute) History of right knee joint replacement (Acute) Family History Mother Congestive heart failure Cancer Father Cancer Father Cancer Social History household members: spouse Smoking Status: Never smoker alcohol intake: never Meds Home Medications Medication Instructions Recorded Confirmed Type metoprolol tartrate 25 mg PO BID 06/28/18 06/28/18 History prednisone 5 mg PO DAILY 06/28/18 06/28/18 History tamsulosin 0.4 mg PO DAILY 06/28/18 06/28/18 History Allergies Allergy/AdvReac Type Severity Reaction Status Date / Time cortisone [CORTISONE] Allergy Intermediate HALLUCINATI Verified 06/28/18 20:03 ONS Penicillins [PENICILLINS] Allergy Unknown Verified 06/28/18 20:03 Review of Systems Review of Systems All systems reviewed & are unremarkable except as noted in HPI and below Exam Vital Signs (past 8 hours): - 06/30/18 09:20 06/30/18 09:25 06/30/18 12:50 Temperature 98.1 F Pulse Rate 81 76 Respiratory Rate 18 Blood Pressure 136/80 139/83 Pulse Oximetry 96 97 Oxygen Delivery Method Room Air Oxygen Flow Rate 0 Narrative Exam Narrative: Patient is alert oriented male in no acute distress. HEENT exam normocephalic atraumatic. Respiratory exam was clear to auscultation bilaterally. Heart exam regular rate and rhythm. Neck exam patient demonstrates a full cervical range of motion without pain and tenderness. Abdominal exam is soft and nontender Extremity exam: Bilateral upper extremities full range of motion normal strength and sensation. A mildly decreased sensation at the tips of the fingers. A right index finger swan-neck deformity. Lower extremities: Right lower extremity demonstrates plantar ulcer under the 2nd metatarsal head with thin drainage. Callus present is approaching the ulcer. Probes deep to bone. Culture swab sent. Her dislocated 2nd and 3rd MTP joints. Moderate dorsal foot cellulitis centered over the 2nd 3rd MTPs. Moderate swelling of the 2nd toe. Sec and 3rd hammertoe deformities. Moderate prominence lateral column plantar 5th metatarsal. Painless 1st ray. No significant deformity. Stocking-glove neuropathy. Palpable dorsalis pedis pulse. Soft calf Left foot: Skin intact. Rigid hammertoes. With healed dorsal scabs. No open wounds Objective Imaging MRI foot: My impression: Dislocations of the 2nd and 3rd MTP joints. Plantar ulceration with cellulitis. Enhancement at the 2nd metatarsal head possible osteomyelitis. Radiologist's impression: IMPRESSION: #1. Cortical erosions and abnormal marrow signal of the distal aspect of the right second metatarsal and proximal aspect of the right second proximal phalanx consistent with osteomyelitis with extensive adjacent soft tissue edema. There is a possible 1.5 cm peripherally enhancing fluid collection inferior to the proximal diaphysis of the second metatarsal, which may represent a developing abscess. The second proximal phalanx remains dislocated laterally from the second metatarsal head. #2. Abnormal signal within the proximal base of the right third proximal phalanx may represent additional osteomyelitis versus chronic degenerative change. #3. Abnormal signal within the lateral mid foot involving the third, fourth, and fifth tarsometatarsal articulations may represent additional osteomyelitis versus chronic degenerative change. Dictated by: Elroy Chavez M.D. on 06/30/2018 at 22:27 Approved by: Elroy Chavez M.D. on 06/30/2018 at 22:50 Labs Result Diagrams: 06/30/18 06:35 06/30/18 06:35 Labs: Laboratory Results - last 24 hr 06/29/18 06/30/18 06/30/18 14:30 06:35 06:35 WBC 8.1 D RBC 3.98 L Hgb 12.7 L Hct 36.9 L MCV 92.6 MCH 31.9 MCHC 34.4 RDW 14.1 Plt Count 231 Neut % (Auto) 73.9 Lymph % (Auto) 15.2 L [place] % (Auto) 7.9 Eos % (Auto) 2.5 Baso % (Auto) 0.5 Neut # (Auto) 6000 H Sodium 140 Potassium 3.8 D Chloride 107 Carbon Dioxide 23 BUN 22 H Creatinine 0.90 Estimated GFR > 60.0 BUN/Creatinine Ratio 24.4 H Glucose 105 Calcium 8.4 A. baumannii (PCR) Not detected Rossy albicans (PCR) Not detected C. glabrata (PCR) Not detected C. krusei (PCR) Not detected C. parapsilosis (PCR) Not detected C. tropicalis (PCR) Not detected Enterobacteriac sp PCR Not detected E. cloacae complex PCR Not detected Enterococcus sp PCR Not detected E. coli (PCR) Not detected H. influenzae (PCR) Not detected Klebsiella oxytoca PCR Not detected Klebsiella pneumoniae Not detected List. monocytogenes PCR Not detected N. meningitidis (PCR) Not detected Proteus species (PCR) Not detected Serratia marcescens PCR Not detected Staphylococcus sp PCR Detected H Staph aureus (PCR) Detected H mecA-Methicil Res Gene Not detected Streptococcus sp PCR Not detected Group A Strep (PCR) Not detected Strep agalactiae (PCR) Not detected Strep pneumoniae (PCR) Not detected P. aeruginosa (PCR) Not detected Jose/B-Vanco Res Genes Not Reportable KPC-Carbap Res Gene PCR Not Reportable Assessment & Plan (1) Foot ulceration: Problem details: The patient has a right foot plantar ulceration secondary to his rheumatoid arthritis with deformities and 2nd and 3rd MTP joint chronic dislocations. Cultures pending from the foot with the patient's growing Staph aureus and his blood. He is on scheduled antibiotics. Current visit: Yes Status: Acute Plan: Assessment/Plan Narrative: The patient has a right foot 2nd metatarsal plantar ulceration as well as chronic dislocations of the 2nd and 3rd MTP joints and a diagnosis of rheumatoid arthritis. The plantar ulcer probes deep to bone which would be consistent with a likely diagnosis of underlying osteomyelitis. We discussed the treatment options for this which typically include some sort of offloading surgery with a bone biopsy and organism specific IV antibiotics. A definitive rheumatoid arthritis as surgery would include some a variant of a James Casiano type procedure. I would like to wait and get the MRI to evaluate the extent of osteomyelitis in planning the surgery. Unfortunately the patient is still on his Remicade and I do worry about healing in the face of the disease modifying medications. 1 possibility would be a modified procedure with metatarsal head resections of the 2nd and 3rd metatarsal heads as well as PIP arthroplasties of the 2nd and 3rd hammertoes this would allow bone biopsy shortening and reduction of the joints deformity correction and then hold these in place with pins. This would be in combination with a plantar ulcer debridement. This would spare the patient's 1st MTP joint and we would not need to worry about her fusion healing in the face of the patient's disease modifying medications. I would still want him to abstain from his next dose unless the incisions are fully healed however. But this would address the deformity as well as the infection. At this point will wait for the MRI the patient will be able to eat tonight will make NPO at midnight and readdress once have the MRI results. Addendum: MRI was consistent with the clinical picture of a plantar abscess post osteomyelitis of the 2nd metatarsal head. I discussed these results and surgery options with the patient with detail including a variant of the clean Casiano procedure with resections of the 2nd and 3rd metatarsal heads addressing the eye hammertoe deformities and pinning as well as debridement of the plantar wound. This could be done in isolation. The patient does not have a significant deformity of the great toe so I would avoid a fusion at this joint at this time however if the patient has recurrent deformity or ulceration stabilization of this may be necessary in the future. We also discussed possible complete a resection of the 2nd 3rd 4th and 5th metatarsal ray heads with pinning which could be done to create a even weight-bearing parabola but would be an additional incision to heal.. Regarding the patient's symptomatic proximal 5th metatarsal plantar pain he could potentially have a small partial resection for offloading this area versus an offloading orthotic. Does not have a large wound or callus in this area that is eminently threatened so ideally I would try to avoid additional sessions area while the patient has the active infection. The patient has bacteremia with Staph aureus he is being treated with IV antibiotics. Vital signs remained stable. We discussed this procedure could be done in the hospital potentially this afternoon however the patient states his outside title investigator is coming in to see him this morning. In light of this, patient will talk with his title investigator further discuss whether he would like to undergo treatment in the hospital or potentially as an outpatient with either myself or another title investigator. As long as the patient is maintained on IV antibiotics and vital signs are stable this could be managed on an outpatient basis with antibiotics in the interim. Otherwise, this could be potentially done as an add on procedure in the evening or Friday. Or as an outpatient next week. Postoperatively the patient will be heel weight-bearing in an offloading shoe. He would have K-wires in place for 4-6 weeks. And the procedure would be metatarsal head resection/hammertoe correction. Plantar ulcer debridement. Will go ahead and get imaging of his C-spine to have this available for the surgery planning giving his rheumatoid arthritis. In to evaluate the C-spine involvement. Time Spent With Patient Time with patient: 25 - 35 minutes
[2018-06-30 18:09] LABS: Erythrocyte Sedimentation Rate 69 MM/HR (0-15)
[2018-06-30 18:24] LABS: C-Reactive Protein Quant 16.3 mg/dL (<1.0)
[2018-06-30] MEDS: DOCUSATE 100 MG CAPSULE PO (20:35)
[2018-07-01] VITALS (11 sets, daily range): BP systolic 102–148; BP diastolic 66–94; PULSE 107–125; RESP 16–20; TEMP 36.2–36.8; O2SAT 96–99; BMI 27.8
--- NOTE | 2018-07-01 | DI.RAD.S_ITS ---
PROCEDURE: XR CERVICAL SPINE 2V OR 3V INDICATIONS: rheumatoid arthritis --pre surgery screen TECHNIQUE: 3 view(s) of the cervical spine were acquired. COMPARISON: [facility], , CHEST 1 VIEW, 07/21/2014, 0:31. FINDINGS: Bones: No fractures or dislocations to the T1 level. The lateral masses of C1 appear intact on the odontoid view. No suspicious bony lesions. In this patient with this given history, scrutiny is given to the dens. No significant abnormality can be seen. Degenerative changes are seen throughout, with moderate to severe disc space narrowing at C4-C5 and moderate disc space narrowing at C5-C6 and C6-C7. Endplate irregularity and sclerosis are seen, which are most prominent at C4-C5. Mild grade 1 anterolisthesis is seen at C6-C7. There is minimal retrolisthesis at C4-C5. Soft tissues: No prevertebral soft tissue swelling. There is partial visualization of a right-sided PICC line. The visualized lung apices are unremarkable. IMPRESSION: Degenerative changes are seen throughout, which are most prominent at the C4-C5 level. No significant abnormality can be seen of the dens. Dictated by: Stefano Brito M.D. on 07/01/2018 at 10:01 Approved by: Stefano Brito M.D. on 07/01/2018 at 10:04
[2018-07-01] MEDS: SODIUM CHLORIDE 0.9% 1,000 ML 100 ML IV ×2 (00:20→11:39)
[2018-07-01] MEDS: CEFAZOLIN 2 GM/100 ML FROZ.PIGGY IV ×2 (01:46→11:21)
--- NOTE | 2018-07-01 08:38 | PC.NURSE ---
Addendum entered by Julia Stokes R.N. 07/01/18 09:08: 0910-Patient back from Xray Original Note: Addendum entered by Julia Stokes R.N. 07/01/18 09:07: 0900-patient off to xray via wheelchair. Communicated 12 lead to MD; awaiting new orders for telemetry. Original Note: 0700-Received report, bedside safety checks done. Patient A&)x4, TOBI, URBAN, +dorsalis pulses bilateral, BT+. Assumed care of patient. 0800-upon cardiac assessment irregular heart sounds noted, discussed w/MD-plan for 12 lead, labs mag and calcium. RT notified for 12 lead. Plan for patient to have CXr of spine.
[2018-07-01] MEDS: ENOXAPARIN 40 MG/0.4 ML SYRINGE SUBCUT (09:14)
[2018-07-01] MEDS: predniSONE 5 MG TABLET PO (09:15)
[2018-07-01] MEDS: METOPROLOL ER 25 MG TABLET PO (09:15)
[2018-07-01] MEDS: TAMSULOSIN 0.4 MG CAPSULE PO (09:16)
--- NOTE | 2018-07-01 12:08 | CM.DPC ---
DCP Cont: Met with patient in room. Pleasant, alert and oriented. May be having foot surgery tomorrow. Discussed home plan. 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 Discussed home health as well, and patient stated that may be an option. Left list for patient to review. P: DCP to continue to follow closely and continue to offer resources post surgery, for patient. Loreta Frausto RN/Electrical Foreman
--- NOTE | 2018-07-01 12:29 | PM.PN.1 ---
Subjective Date Patient Seen: 07/01/18 Interval history: Overall he feels better, he has less redness of the foot. The plantar ulcer continues to drain. Appreciate Dr. Bell's evaluation. For now will await input from podiatry to determine whether he will have surgery inpatient vs. outpatient and by Podiatry vs. Orthopedics Exam Vital Signs (past 8 hours): - 07/01/18 07:40 07/01/18 09:00 07/01/18 09:15 Temperature 98.3 F Pulse Rate 107 H 120 H 120 H Respiratory Rate 16 20 Blood Pressure 102/68 109/67 109/67 Pulse Oximetry 96 96 07/01/18 10:50 Temperature Pulse Rate 111 H Respiratory Rate Blood Pressure 110/75 Pulse Oximetry Oxygen Delivery Method Room Air Oxygen Flow Rate 0 Narrative Exam Narrative: Pleasant gentleman in NAD Lungs: clear to auscultation CV: irregularly, irregular nl Sl S2 ABD: Soft/ non tender Ext: right foot with decreased warmth and erythema Right plantar surface with open ulcer, clear drainage, unchanged from yesterday Objective Labs Result Diagrams: 06/30/18 06:35 06/30/18 06:35 Labs: Laboratory Results - last 24 hr 06/30/18 06/30/18 17:30 17:30 ESR 69 H C-Reactive Protein 16.3 H Assessment & Plan (1) Foot ulceration: Problem details: The patient has a right foot plantar ulceration secondary to his rheumatoid arthritis with deformities and 2nd and 3rd MTP joint chronic dislocations. Cultures pending from the foot with the patient's growing Staph aureus and his blood. He is on scheduled antibiotics. Await podiatry and orthopedic surgery recommendations Current visit: Yes Status: Acute (2) Hypertension: Problem details: Continue Metoprolol Current visit: Yes Status: Acute (3) Rheumatoid arthritis: Problem details: Continue prednisone Current visit: Yes Status: Acute (4) Cellulitis of right foot: Problem details: continue antibiotics, blood cultures growing MSSA, patient on Cefazolin for now Current visit: No Status: Acute (5) Osteomyelitis: Current visit: Yes Status: Acute (6) Pressure ulcer of right foot, stage 4: Problem details: TBD. Need to know whether this will be addressed in patient or outpatient Current visit: Yes Status: Acute Quality VTE Deep Vein Thrombosis/Pulmonary Embolism Present on Admission: No
[2018-07-01 17:54] LABS: Calcium 8.7 mg/dL (8.4-10.2); Magnesium 1.9 mg/dL (1.6-2.3); Phosphorous 3.1 mg/dL (2.3-3.7)
--- NOTE | 2018-07-01 18:05 | PM.PREOP ---
Pre-operative Note Interval Note Pre-op Check: Yes History & Physical Reviewed by Physician and Yes Exam Performed Changes: No
--- NOTE | 2018-07-01 18:05 | PM.OP.1 ---
Operative Date/Time/Diagnoses Date of procedure: 07/01/18 Time of procedure: 21:15 Pre-op diagnosis: 1. Foot ulcer, right with osteomyelitis: L97.514 2. Rheumatoid arthritis affecting multiple joints 714.0 3. Bacteremia R78.81 4. Right foot arthritis, lateral column 4. Osteomyelitis M86.717, cellulitis 5. Acquired deformities of the toes right foot with ulceration 6. Distal migration of the plantar fat pad Post-op diagnosis: same Procedure & Clinicians Procedure: 1. Complete excision metatarsal head resections 2nd 3rd 4th and 5th metatarsal heads and pinning. cpt 93057 T6, 69420-V6-66, 30171 T8-59, 77429-K5-88 2. Correction rigid [place] c[place] 58387-P2, 23095-R0-44 3. Closed reduction toe deformities and pinning, osteoclasis c[place] 48268 x 2- T8, T9 4. Irrigation debridement plantar ulcer soft tissue and bone 39589-32 Same procedure as scheduled: Yes Indications: The patient is a 73-year-old male with a history of rheumatoid arthritis with multiple joint involvement and acquired foot deformities. The patient has a plantar ulceration at his 2nd metatarsal head and chronically dislocated 2nd and 3rd MTP joints. The patient has a draining ulcer growing Staph aureus and Staph aureus bacteremia MSSA. The patient has been indicated for irrigation debridement of his infected ulceration and osteomyelitis. Inaddition to offload the ulceration and promote healing the patient has been indicated for metatarsal head resections of the 2nd 3rd 4th and 5th metatarsal heads deformity to create an evenly distributed weight-bearing surface as well as pinning and correction of the hammertoe deformities. The patient understands and agrees with the plan. Additionally the patient is being treated with IV antibiotics for his bacteremia. Surgeon: Elizabeth Bell Click Yes if Unassisted: Yes Anesthesia Type: General and Local Operative Notes Findings: Under ulceration and the 2nd metatarsal head probes to bone. Then white purulent drainage. Distal migration of the plantar fat pad. Dorsal dislocated MTP joints of the 2nd and 3rd MTP. Hammertoe deformities rigid at 2nd and 3rd PIP joints flexible 3rd and 4th PIP joint hammertoes. Septic arthritis 2nd MTP joint with abscess on dorsal incision. Severe synovitis and capsulitis with thick scarring along the dorsal soft tissues and MTP joint capsules Closure Type: primary Specimen(s): other (Tissue and bone for micro and pathology) Implants & Drains: K-wires 062x 3, 045x1 Applied: other (Soft dressing, postop shoe) Estimated Blood Loss (mL): 10 Blood products transfused: none Tourniquet time (min): 107 Procedure in detail: The patient was seen in the preoperative area. The site of surgery had been marked previously on the floor. This was again confirmed and final questions were answered. Patient was then taken to the operating room by the operative team. Patient was positioned supine on the operative table and general anesthesia was administered. All bony prominences were well padded. A well-padded thigh tourniquet was placed. The right lower extremities prepped and draped in standard sterile fashion. A formal time-out procedure was performed confirming the patient's name and site of surgery. Patient had been on scheduled IV antibiotics on the floor. All were in agreement. The leg was exsanguinated with gravity exsanguination and the tourniquet elevated to 250 mm of mercury and stayed there for 107 min. Attention was turned to the dorsum of the foot. Dorsal incision was centered between the 2nd and 3rd metatarsals. Skin was incised longitudinally. Dissection was taken down to the level of the 2nd and 3rd metatarsals. There is significant dorsal soft tissue scarring and capsulitis this was superficial in the subcutaneous tissues as well as down at the level of the metatarsophalangeal joint. The extensor tendons were retracted medially at the 2nd metatarsal and laterally at the 3rd metatarsal. Metatarsal necks and MTP joints were exposed. On incision of the 2nd MTP joint capsule there was a several cc of gross purulent discharge demonstrating septic arthritis of the 2nd MTP joint. Hohmann retractors were used to protect the soft tissues and the 2nd metatarsal neck was transected. The metatarsal head was freed and removed. Attention was then turned to the 3rd metatarsal head which was resected slightly shorter and removed again with a saw directed distal dorsal to plantar proximal. Next 2nd dorsal incision between the 4th and 5th metatarsals was also made longitudinally. The 4th and 5th metatarsal head and necks were exposed in similar fashion and then excised to create a natural cascade for weight-bearing. The hammertoe deformities were corrected. The 2nd and 3rd toe PIP joints had rigid hammertoes. The 2nd 3rd intermetatarsal incision was extended longitudinally over the PIP joint of the 2nd toe a small ellipse of dorsal extensor tendon was excised and the distal proximal phalanx was excised using the TPS saw. This allowed the toe to be straightened. The 3rd PIP hammertoe was also rigid and a separate elliptical incision was made over the PIP joint through the skin and extensor tendon ellipsing out a small section of tissue. The distal proximal metatarsal was then exposed Homans placed on either side. The collaterals released off the proximal phalanx. And the proximal phalanx head again was excised using the TPS oft. 062 K-wires were then advanced through the end of the toe and then back retrograde through the proximal phalanx and into the metatarsals to hold the correction. A 045 K-wire was used in the 3rd toe. The 4th and 5th hammertoes were flexible and able to be manually straightened through osteoclasis these were also fixed utilizing 062 K-wires in a distal to proximal fraction and confirmed under intraoperative mini C-arm imaging. Metatarsal and hammertoe corrections and wire placement were confirmed on fluoroscopy. The K-wires were then cut bent and caps placed Attention was then turned to the plantar ulceration this was ellipsed sized out and tissue was sent for culture and pathology along with the 2nd metatarsal head. After thorough debridement back to healthy tissue wound was irrigated with 3 L of saline and cysto tubing. The tourniquet was released and hemostasis achieved. Vancomycin powder was sprinkled into the wounds and the wounds were closed in layered fashion with 2 0 PDS, and 3 O nylon in the plantar ulceration and 2 0 PDS, 4 0 Monocryl, 4 O nylon dorsally. Of note the 2nd toe was noted to have somewhat sluggish capillary refill but did eventually pink up demonstrate brisk less than 2 sec refill at the time of leaving the operating room. It did remain slightly darker than the other digits but retained its cap refill. 10 cc of 0.25% plain Marcaine were infiltrated into the dorsal incision for local anesthesia. Sterile dressing with Xeroform gauze Kerlix was placed. A p posterior splint was applied patient was awoken from anesthesia and taken to the PACU in good condition. All counts were correct. Complications: none Condition: stable Disposition: Acute Care Plan for aftercare: The patient will be converted to a postoperative shoe when it is available on the floor. This will be done by just removing the posterior resting splint. The patient will be heel weight-bearing on his right foot with minimal weight-bearing for transfers and minimal amputation as needed. K-wires will stay in place for 4-6 weeks and be removed in the office. The patient will complete appropriate IV antibiotics for his bacteremia. Will follow up in clinic in 10-14 days for wound evaluation. The patient is on DVT prophylaxis with Lovenox during the hospitalization.
--- NOTE | 2018-07-01 18:16 | P.OP_ITS ---
Operative Date/Time/Diagnoses Date of procedure: 07/01/18 Time of procedure: 21:15 Pre-op diagnosis: 1. Foot ulcer, right with osteomyelitis: L97.514 2. Rheumatoid arthritis affecting multiple joints 714.0 3. Bacteremia R78.81 4. Right foot arthritis, lateral column 4. Osteomyelitis M86.717, cellulitis 5. Acquired deformities of the toes right foot with ulceration 6. Distal migration of the plantar fat pad Post-op diagnosis: same Procedure & Clinicians Procedure: 1. Complete excision metatarsal head resections 2nd 3rd 4th and 5th metatarsal heads and pinning. cpt 66076 T6, 97575-G1-47, 24833 T8-59, 34131-L4- 51 2. Correction rigid hammertoe deformity cpt 20905-D8, 01865-Q7-43 3. Closed reduction toe deformities and pinning, osteoclasis cpt 13125 x 2- T8, T9 4. Irrigation debridement plantar ulcer soft tissue and bone 54750-39 Same procedure as scheduled: Yes Indications: The patient is a 73-year-old male with a history of rheumatoid arthritis with multiple joint involvement and acquired foot deformities. The patient has a plantar ulceration at his 2nd metatarsal head and chronically dislocated 2nd and 3rd MTP joints. The patient has a draining ulcer growing Staph aureus and Staph aureus bacteremia MSSA. The patient has been indicated for irrigation debridement of his infected ulceration and osteomyelitis. Inaddition to offload the ulceration and promote healing the patient has been indicated for metatarsal head resections of the 2nd 3rd 4th and 5th metatarsal heads deformity to create an evenly distributed weight-bearing surface as well as pinning and correction of the hammertoe deformities. The patient understands and agrees with the plan. Additionally the patient is being treated with IV antibiotics for his bacteremia. Surgeon: Elizabeth Bell Click Yes if Unassisted: Yes Anesthesia Type: General and Local Operative Notes Findings: Under ulceration and the 2nd metatarsal head probes to bone. Then white purulent drainage. Distal migration of the plantar fat pad. Dorsal dislocated MTP joints of the 2nd and 3rd MTP. Hammertoe deformities rigid at 2nd and 3rd PIP joints flexible 3rd and 4th PIP joint hammertoes. Septic arthritis 2nd MTP joint with abscess on dorsal incision. Severe synovitis and capsulitis with thick scarring along the dorsal soft tissues and MTP joint capsules Closure Type: primary Specimen(s): other (Tissue and bone for micro and pathology) Implants & Drains: K-wires 062x 3, 045x1 Applied: other (Soft dressing, postop shoe) Estimated Blood Loss (mL): 10 Blood products transfused: none Tourniquet time (min): 107 Procedure in detail: The patient was seen in the preoperative area. The site of surgery had been marked previously on the floor. This was again confirmed and final questions were answered. Patient was then taken to the operating room by the operative team. Patient was positioned supine on the operative table and general anesthesia was administered. All bony prominences were well padded. A well-padded thigh tourniquet was placed. The right lower extremities prepped and draped in standard sterile fashion. A formal time-out procedure was performed confirming the patient's name and site of surgery. Patient had been on scheduled IV antibiotics on the floor. All were in agreement. The leg was exsanguinated with gravity exsanguination and the tourniquet elevated to 250 mm of mercury and stayed there for 107 min. Attention was turned to the dorsum of the foot. Dorsal incision was centered between the 2nd and 3rd metatarsals. Skin was incised longitudinally. Dissection was taken down to the level of the 2nd and 3rd metatarsals. There is significant dorsal soft tissue scarring and capsulitis this was superficial in the subcutaneous tissues as well as down at the level of the metatarsophalangeal joint. The extensor tendons were retracted medially at the 2nd metatarsal and laterally at the 3rd metatarsal. Metatarsal necks and MTP joints were exposed. On incision of the 2nd MTP joint capsule there was a several cc of gross purulent discharge demonstrating septic arthritis of the 2nd MTP joint. Hohmann retractors were used to protect the soft tissues and the 2nd metatarsal neck was transected. The metatarsal head was freed and removed. Attention was then turned to the 3rd metatarsal head which was resected slightly shorter and removed again with a saw directed distal dorsal to plantar proximal. Next 2nd dorsal incision between the 4th and 5th metatarsals was also made longitudinally. The 4th and 5th metatarsal head and necks were exposed in similar fashion and then excised to create a natural cascade for weight-bearing. The hammertoe deformities were corrected. The 2nd and 3rd toe PIP joints had rigid hammertoes. The 2nd 3rd intermetatarsal incision was extended longitudinally over the PIP joint of the 2nd toe a small ellipse of dorsal extensor tendon was excised and the distal proximal phalanx was excised using the TPS saw. This allowed the toe to be straightened. The 3rd PIP hammertoe was also rigid and a separate elliptical incision was made over the PIP joint through the skin and extensor tendon ellipsing out a small section of tissue. The distal proximal metatarsal was then exposed Homans placed on either side. The collaterals released off the proximal phalanx. And the proximal phalanx head again was excised using the TPS oft. 062 K-wires were then advanced through the end of the toe and then back retrograde through the proximal phalanx and into the metatarsals to hold the correction. A 045 K-wire was used in the 3rd toe. The 4th and 5th hammertoes were flexible and able to be manually straightened through osteoclasis these were also fixed utilizing 062 K- wires in a distal to proximal fraction and confirmed under intraoperative mini C -arm imaging. Metatarsal and hammertoe corrections and wire placement were confirmed on fluoroscopy. The K-wires were then cut bent and caps placed Attention was then turned to the plantar ulceration this was ellipsed sized out and tissue was sent for culture and pathology along with the 2nd metatarsal head. After thorough debridement back to healthy tissue wound was irrigated with 3 L of saline and cysto tubing. The tourniquet was released and hemostasis achieved. Vancomycin powder was sprinkled into the wounds and the wounds were closed in layered fashion with 2 0 PDS, and 3 O nylon in the plantar ulceration and 2 0 PDS, 4 0 Monocryl, 4 O nylon dorsally. Of note the 2nd toe was noted to have somewhat sluggish capillary refill but did eventually pink up demonstrate brisk less than 2 sec refill at the time of leaving the operating room. It did remain slightly darker than the other digits but retained its cap refill. 10 cc of 0.25% plain Marcaine were infiltrated into the dorsal incision for local anesthesia. Sterile dressing with Xeroform gauze Kerlix was placed. A p posterior splint was applied patient was awoken from anesthesia and taken to the PACU in good condition. All counts were correct. Complications: none Condition: stable Disposition: Acute Care Plan for aftercare: The patient will be converted to a postoperative shoe when it is available on the floor. This will be done by just removing the posterior resting splint. The patient will be heel weight-bearing on his right foot with minimal weight-bearing for transfers and minimal amputation as needed. K- wires will stay in place for 4-6 weeks and be removed in the office. The patient will complete appropriate IV antibiotics for his bacteremia. Will follow up in clinic in 10-14 days for wound evaluation. The patient is on DVT prophylaxis with Lovenox during the hospitalization.
[2018-07-01] MEDS: LACTATED RINGERS 1,000 ML 42 ML IV ×2 (18:38→22:55)
--- NOTE | 2018-07-01 20:04 | SUR.HOLD ---
Was about ready to go into surgery when an emergency case came up and bumped patient. He has remained in OPD with observation through this time.
--- NOTE | 2018-07-01 21:01 | SUR.HOLD ---
Dr Morris informed of and shown afib with rapid ventricular response at this time.
--- NOTE | 2018-07-01 21:40 | SUR.OPER ---
Supine on padded OR bed, head on pillow, arms secured on padded arm boards at <90 degrees abduction, right leg is under control of surgeon, bump is under right hip, safety belt at abdomen, tape over blanket over left lower leg.
[2018-07-01] MEDS: BUPIVACAINE 0.25% (PF) VIAL 30 ML INJ (21:49)
--- NOTE | 2018-07-01 22:53 | PC.NURSE ---
Addendum entered by Nicolasa Brantley R.N. 07/01/18 22:56: Pt just went into OR suite, surgery delayed due to a previous surgery. Original Note: 1800- Pt taken to OR via bed. Hr-125, BP 136/71, 99%RA, LS clear. DRSG removed from right foot with mild purulence.
[2018-07-01] MEDS: VANCOMYCIN 1,000 MG VIAL 1000 MG TOP (23:29)
[2018-07-02] VITALS (18 sets, daily range): BP systolic 102–149; BP diastolic 66–98; PULSE 87–120; RESP 11–19; TEMP 36.4–37.4; O2SAT 94–99
--- NOTE | 2018-07-02 | PATH_ITS ---
[facility] Accession Number: [id number] . 01 Material submitted: . RIGHT FOOT, BONE . 02 Diagnosis: Bone, Right Foot, Resection: Acute osteomyelitis. No evidence of neoplasm. MRV/07/06/2018 . 02 Electronically signed: . Yuridia Mancuso MD, Pathologist NPI- [id number] . 01 Gross description: . Received in formalin, labeled right foot bone, is a resected bone with an articular head (2.4 x 1.8 x 1.2 cm). The bone cannot be sliced with a scalpel. The cut surface is abraham-white and unremarkable. The resection margin is inked black. Trisected perpendicularly with the middle third decalcified and submitted in cassette A1. ([id number]) /MRV . 02 Pathologist provided ICD-10: M86.9 . 02 CPT . 760042, [id number] Specimen Comment: A duplicate report has been generated due to demographic updates. Performed at: [facility] [address] [id number] MD Husam Mckeon MD Phone: [phone] Performed at: [facility] [address] [place], [place] [id number] MD Yuridia Mancuso MD Phone: [phone]
--- NOTE | 2018-07-02 00:45 | SUR.PHASEI ---
HOB elevated, tolerating juice well. States right foot pain 3, declines Rx. Splint CDI, pins in place, some bloody drainage dried on toes. 2nd toe is discolored purple. explained to patient that she isn't sure if that toe will survive and that they'll just 'watch it..' Voided.
[2018-07-02] MEDS: CEFAZOLIN 2 GM/100 ML FROZ.PIGGY IV ×2 (01:30→09:30)
[2018-07-02] MEDS: LACTATED RINGERS 1,000 ML 42 ML IV (03:11)
--- NOTE | 2018-07-02 07:24 | PM.PNPO.1 ---
Subjective Date Patient Seen: 07/02/18 Time Patient Seen: 07:25 Interval history: Postop day 1 Right foot ulceration with infection osteomyelitis and bacteremia, rheumatoid arthritis causing acquired ft and toe deformities The patient is resting in bed. Pain is controlled. Patient does have dense neuropathy of the foot baseline. Denies fevers or chills. Exam Vital Signs (past 8 hours): - 07/02/18 00:20 07/02/18 00:25 07/02/18 00:30 Temperature 97.6 F Pulse Rate 106 H 107 H 106 H Respiratory Rate 19 19 11 L Blood Pressure 114/83 124/98 H 110/84 Pulse Oximetry 95 98 95 07/02/18 00:35 07/02/18 00:55 07/02/18 01:20 Temperature 98.3 F Pulse Rate 118 H 113 H 106 H Respiratory Rate 18 13 15 Blood Pressure 102/76 107/76 116/82 Pulse Oximetry 96 98 97 07/02/18 01:40 07/02/18 02:29 07/02/18 03:10 Temperature 97.6 F 97.8 F Pulse Rate 102 H 115 H Respiratory Rate 16 17 Blood Pressure 121/66 105/80 Pulse Oximetry 97 99 95 07/02/18 04:10 Temperature 98.8 F Pulse Rate 120 H Respiratory Rate 17 Blood Pressure 138/89 Pulse Oximetry 97 Oxygen Delivery Method Room Air Oxygen Flow Rate 0 Narrative Exam Narrative: Alert and oriented lying in bed pain control Breathing unlabored on room air Answers questions appropriately Musculoskeletal exam: Right foot: Dressing in place with posterior splint. K-wires in place 2nd 3rd 4th and 5th toes. Second toe continues to appear moderately skin purple with venous congestion. Blanches easily with pressure. Toe was warm. Remainder of toes nicely pink and warm, brisk capillary refill Dense neuropathy. Patient is not able to feel you touch toes or foot. Objective Labs Result Diagrams: 06/30/18 06:35 06/30/18 06:35 Labs: Laboratory Results - last 24 hr 07/01/18 11:15 Calcium 8.7 Phosphorus 3.1 Magnesium 1.9 Assessment & Plan Post-op Postoperative Procedures Operation Date: 07/01/18 18:45 Actual Procedures Side Surgeon p Foot ulcer I&D Right Elizabeth Bell MD s Hammertoe Correction w/Metatarsal head resection and hammer toe corrections lesser toes, second, third, fourth, fifth Right Elizabeth Bell MD Postop day 1 status post irrigation debridement of right foot ulceration osteomyelitis and abscess. Patient went underlying diagnosis of rheumatoid arthritis affecting multiple joints and causing acquired foot deformities and 2nd and 3rd MTP dislocations. Patient is status post irrigation debridement of the plantar abscess closure. Patient is status post resection of the 2nd 3rd 4th and 5th metatarsal heads and pinning. Patient is also status post hammertoe corrections of the 2nd and 3rd toes to correct rigid hammertoe deformities and facilitate pinning. Patient did have significant infectious involvement of the 2nd toe digit swelling and the start of plantar blisters at the time of surgery. An extensive debridement was undertaken and abscess was drained. The tarsal head resection and proximal phalanx hammertoe resection was completed shorten the toe facilitate straightening without tension. Discussed in detail with the extensive deformities and infection involving the 2nd toe and its ultimate vascular sufficiency. At this point the toe appears venous congested but blanches easily with pressure and is not changed significantly since immediately postop. This point we discussed continuing to watch the digit avoid any constrictive dressings. We discussed due to the extensive developed involvement of the soft tissues occasionally this was resulted in compromised circulation and require amputation. This were to happen it would typically declare itself over 24-72 hours. We will continue to monitor this over time but would like tissue declare itself before proceeding with any other procedures. The patient understands and agrees with the plan. Patient will be switched to a Darco offloading shoe that he has at home today. Will provide more offloading the postoperative shoe available in the hospital. This is available he may be removed from the posterior splint placed into the Darco offloading shoe. He may be heel weight-bearing for flatfoot on the offloading shoe. He should use crutches or a walker as needed for balance. Follow-up in 1 week [address] clinic with Dr. Bell for wound check. Sutures will be maintained a minimum of 3 weeks. IV antibiotics per hospitalist team/bacteremia. But for foot infection osteomyelitis, which only recommend 4-6 weeks DVT prophylaxis. SCDs, Lovenox Quality VTE Deep Vein Thrombosis/Pulmonary Embolism Present on Admission: No
[2018-07-02] MEDS: OXYCODONE IR 5 MG TABLET PO ×3 (07:49→20:22)
[2018-07-02] MEDS: METOPROLOL ER 25 MG TABLET PO ×2 (07:50→20:22)
[2018-07-02] MEDS: ENOXAPARIN 40 MG/0.4 ML SYRINGE SUBCUT (07:50)
[2018-07-02] MEDS: predniSONE 5 MG TABLET PO (07:50)
[2018-07-02] MEDS: TAMSULOSIN 0.4 MG CAPSULE PO (07:50)
--- NOTE | 2018-07-02 11:19 | CM.DPC ---
DCP Cont: Dr. Renteria stated that patient will need to be on IV antibiotics for appoximately next 6 weeks. Stated that patient is to be on IV Ceftrioxine 2 grams q day. Stated that it would be easier for patient to do this at home, other than going out. Spoke to Char at [facility]. Stated that it is unclear if this would be covered by his insurance, since he is Medicare. Has secondary [employer]. Asked her to fax over a cover sheet regarding insurance, and clinical notes. Faxed over information as she requested. She will review and update us. Other option is outpatient infusion at [facility] clinic. Called Quiana at [facility]. Stated that if patient goes home, could see him in 24 hours. Spoke to patient in his room. Went over Medicare choice list. Let him know that medications may not be covered, as [facility] is looking into his secondary insurance. Other option is residential. Spoke to Lynnette, floor nurse. Stated that he will need much care, has pins in his foot currently, and needs to be monitored. Also, may need to be her an extra day. Patient may be up to residential, will discuss with . P: DCP to follow closely. Will wait to hear back from [facility]. Patient stated that he would not go to [facility], but has been to this Infusion clinic, but at this time, non-weight bearing on foot. Loreta Frausto, RN/Equipment Operat0R
--- NOTE | 2018-07-02 11:38 | PC.NURSE ---
Pt's right surgical foot is elevated on pillows and wrapped with tish on a foot board. All five toes and bone pins visualized. The second toe on right foot is deep purple and checked frequently for profusion. It blanches and is warm to touch. All other toes are erythemic, warm to the touch, and edematous
--- NOTE | 2018-07-02 11:44 | PC.NURSE ---
Pt has called his son and waits for ortho shoe that he has at home and can use for his right surgical foot.
--- NOTE | 2018-07-02 13:21 | PM.PN.1 ---
Subjective Date Patient Seen: 07/02/18 Interval history: patient has no specific complaints. He had some loose stool with stool softeners yesterday. No nausea, diarrhea, or shortness of breath today. He will need 6 weeks of antibiotics. Patient and agreeable, but it is unclear whether this can be done at home vs. SNF Exam Vital Signs (past 8 hours): - 07/02/18 07:00 07/02/18 08:15 07/02/18 11:26 Temperature 99.4 F 98.6 F Pulse Rate 98 H 93 H Respiratory Rate 18 Blood Pressure 149/86 H 124/69 Pulse Oximetry 98 98 94 Oxygen Delivery Method Room Air Oxygen Flow Rate 0 Narrative Exam Narrative: Pleasant male in no acute distress Lungs: clear to auscultation CV: irregularly, irregular nl Sl S2 Abd: soft/ non tender/ non distended Ext: Right foot with dressing in place Objective Labs Result Diagrams: 06/30/18 06:35 06/30/18 06:35 Labs: Laboratory Results - last 24 hr 07/01/18 11:15 Calcium 8.7 Phosphorus 3.1 Magnesium 1.9 Assessment & Plan (1) Pressure ulcer of right foot, stage 4: Problem details: patient had definitive surgery for this Current visit: Yes Status: Acute (2) Osteomyelitis: Problem details: MSSA from blood and wound growing. Now on Ceftriaxone 2 grams IV. He will need a total of 6 weeks IV antibiotics. this will likely be via the SNF as patient may not be eligible to receive this at home Current visit: Yes Status: Acute (3) Hypertension: Problem details: Continue Metoprolol Current visit: Yes Status: Acute (4) Rheumatoid arthritis: Problem details: Continue prednisone Current visit: Yes Status: Acute (5) Cellulitis of right foot: Problem details: continue antibiotics, blood cultures growing MSSA, patient on Ceftriaxone for now Current visit: No Status: Acute Plan: Assessment/Plan Narrative: Awaiting decision regarding SNF placement Quality VTE Deep Vein Thrombosis/Pulmonary Embolism Present on Admission: No
--- NOTE | 2018-07-02 14:00 | PT.IPTN ---
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 with unspecified severity (06/28/18) Rheumatoid arthritis, unspecified (06/28/18) Osteomyelitis, unspecified (06/28/18) Acute kidney failure, unspecified (06/28/18) Surgery Performed Operation Date: 07/01/18 18:45 Actual Procedures p Foot ulcer I&D(Right) - Elizabeth Bell MD s Hammertoe Correction w/Metatarsal head resection and hammer toe corrections lesser toes, second, third, fourth, fifth(Right) - Elizabeth Bell MD Operation Date: 07/03/18 12:00 <No data on this case meets the specified criteria> Physical Therapy Treatment Note M2 PT-IP Current Condition Start: 06/30/18 10:58 Freq: NEEDED Status: Active Protocol: Document 06/30/18 10:06 (Rec: 06/30/18 11:24 [email or web address]) Physical Therapy Current Condition Current Condition Evaluation Date 06/30/18 Treatment Diagnosis R foot cellulitis; impaired mobility Onset Date 06/28/18 Precautions Other Precautions Contact precautions Weight Bearing Status Weight Bearing Status Weight Bear as Tolerated Allowed Weight Bearing Amount (enter % Pt has no formal weight or #) (%) bearing precautions, but current activity orders are bed rest with bathroom privelages. Pt advised by PT to limit ambulation/standing until infection is further resolved. M3 PT-IP Subjective Start: 06/30/18 10:58 Freq: NEEDED Status: Active Protocol: Document 07/02/18 16:00 AB (Rec: 07/03/18 10:37 AB [id number]) Subjective Physical Therapy Visit Type Notes Checked with pt for PT bryant. stated that he has a post-op offloading shoe that his son will bring in later on tonight and wants to do PT tomorrow to wait for the shoe instead of PT dispensing him another one. checked with nurse and confirmed that son will bring off loading post-op shoe. MD order front foot off loading post -op shoe on RLE for transfers. pt with bedrest with bathroom privileges order. aleksandr check tomorrow. M4 PT-IP Mobility and Gait Start: 06/30/18 10:58 Freq: NEEDED Status: Active Protocol: Document 06/30/18 10:06 (Rec: 06/30/18 11:24 [email or web address]) PT-Bed Mobility Assessment Supine to Sit Supine to Sit Standby Assistance Head of Bed Elevated Sit to Supine Sit to Supine Standby Assistance Head of Bed Elevated Scooting Scooting to Edge of Bed Independent Scooting Up and Down in Bed Independent PT-Transfer Assessment Sit to and From Stand Sit to and from Stand Standby Assistance Equipment Transfer Assistive Device None Front Wheeled Walker Orthotic/Prosthetic Devices or Brace: No Transfers Transfer Destination Bed Transfer Technique Ambulated in room to/from bed. Comments Mobility Comments Assessed pt with fww and without AD for sit <> stand. He needed cuing for sit <> stand with fww SBA. Without AD, pt performs sit <> stand from toilet SBA. Bed mobility including scooting, supine <> sit is independent. Gait Assessment Gait Gait Assistance Required: Standby Assistance Distance (Feet) 60 Able to Maintain Weight Bearing Status Yes During Gait Assistive Devices Assistive Device None Gait Belt Front Wheeled Walker Orthotic/Prosthetic Devices or Brace: No Gait Deviations General Gait Pattern Within Normal Limits Factors Limiting Gait Function Factors Limiting Gait Function Decreased Activity Tolerance Decreased Sensation Decreased Strength Limited Range of Motion Poor Balance Poor Safety Awareness Comments Gait Comments Assessed pt ambulation 15 ft with fww SBA. Despite max cues, pt impulsive and pushing fww far in front of him and picks it up instead of rolling . Assessed ambulation 60 ft in room without AD, pt is SBA, no LOB, gait mechanics WNL. PT-Balance Assessment Sitting Balance and Reactions Static Sitting Balance Ability Good Dynamic Sitting Balance Ability Good Standing Balance and Reactions Static Standing Balance Ability Good Dynamic Standing Balance Ability Fair Device Used none M5 PT-IP Objective Assessments Start: 06/30/18 10:58 Freq: NEEDED Status: Active Protocol: Document 06/30/18 10:06 (Rec: 06/30/18 11:24 [email or web address]) Orientation Orientation/Cognition Level of Alertness Alert Orientation Name Age Birthday Month Date Year Day of Week Place Situation Language Function Ability No Deficits Noted Safety Awareness Decreased Safety Awareness Gross Range of Motion Lower Extremity ROM Assessment Within Functional Limits Strength Lower Extremity Strength Assessment Within Functional Limits Sensation Assessment Sensation Light Touch Absent Sensation Description Numbness Comments Sensation Comments Light touch sensation is absent in stocking-glove distribution B feet, distal to mid calf. Pt states you could stick a knife in his feet and he wouldn't know. M6 PT-IP Treatment Start: 06/30/18 10:58 Freq: NEEDED Status: Active Protocol: Document 06/30/18 10:06 (Rec: 06/30/18 11:24 [email or web address]) Physical Therapy Treatment Exercises Exercises Ankle Pumps Quad Sets Heel Slides Education Education Provided Safety Other Treatments Other Treatment Performed Pt education regarding inspecting shoe wear and feet before and after ambulation. Ankle pumps X20; Heel slides X20; Quad sets X20. Pt instructed to follow up on these exercises every hour to maintain strength and improve circulation and healing of R foot. M7 PT-IP Assessment and Plan Start: 06/30/18 10:58 Freq: NEEDED Status: Active Protocol: Document 06/30/18 10:06 (Rec: 06/30/18 11:24 [email or web address]) PT Summary Assessment and Plan Potential Rehabilitation Potential Good Status of Condition at Evaluation Stable Summary Impairments ROM Strength Balance Sensation Transfers Gait Activity Tolerance Progress Towards Goals Progressing Toward Goals Assessment Summary Pt with R foot ulcer and cellulitis. At this time the pt is at his stated baseline functional mobility. He was able to ambulate 75 ft in room using no AD SBA and was SBA with sit <> stand transfers including from a low toilet seat without use of UE. He was educated in HEP to maintain strength and improve circulation for healing. At this time it is anticipated that he will be safe in his home environment and recommend d/c to home with 24/7 assist when pt is medically stable. D/c from PT program at this time pending change in pt status as he has no further goals for functional mobility to address at this time in the acute care setting. Goals Bed Mobility Goal Independent Transfer Goal Independent Gait Goal Independent Frequency of Treatment Frequency Of Treatment Discharge Recommendations To Nursing Amount of Assist Needed Standby Assistance Discharge Recommendations PT Discharge Recommendations Home with 24/7 Assist
[2018-07-02] MEDS: CEFTRIAXONE 2 GM/50 ML FROZ.PIGGY IV (14:33)
--- NOTE | 2018-07-02 18:42 | PC.NURSE ---
Addendum entered by Lynn Hoffman R.N. 07/02/18 22:43: As of right now toe is completely purple and has formed a small superficial fluid-filled blister between first toe and second. Second toe is mottled white in some places. Cap refill is now 10 seconds all over second toe. Dr. Presley and Dr. Bell is aware. Original Note: Addendum entered by Lynn Hoffman R.N. 07/02/18 21:56: This RN has re-evaluated patient's second toe on operative foot q1H this shift; patient's toe was gradually getting more dark and purple up until this RN rewrapped and loosened ANEUDY wrap, toe color/cap refill has not gotten better but it appears as though circulation has not worsened since it was last checked one hour ago. Will continue to reassess, MD Presley and Arabella are aware of situation. Original Note: Patient's second toe has been turning more purple/darker since start of shift, cap refill is 6-7 seconds on some parts of the toe, base of toe has turned slightly white; reported this to Dr. Presley and he stated to loosen the ANEUDY wrap a bit and he will contact Dr. Bell in the meantime. Will continue to reassess.
[2018-07-03] VITALS (23 sets, daily range): BP systolic 106–150; BP diastolic 63–99; PULSE 75–100; RESP 10–20; TEMP 36.6–37.4; O2SAT 91–98; BMI 27.1
--- NOTE | 2018-07-03 | PATH_ITS ---
[facility] Accession Number: [id number] . 01 Material submitted: . RIGHT FOOT, SECOND TOE . 02 Diagnosis: Right Foot, Second Toe, Amputation: Toe with active soft tissue inflammation and abscesses. Remodeling bone with fibrotic marrow; no definitive osteomyelitis. Histologically viable margins of resection. MRV/07/08/2018 . 02 Electronically signed: . Steve Kumar MD, PhD, Pathologist NPI- [id number] . 01 Gross description: . Received in formalin, labeled second toe right foot, is a resected toe (6.7 cm AP, 2.5 cm SI, 2.4 cm ML). The toenail is present. The skin is wei-white and focally bright pink. The central superoposterior aspect is sutured together. The skin is flaky and . No nodules, masses, lesions or ulcers are identified. The distal bone is easily sliced with a scalpel while the proximal bone is not. Ink code: black-superior; orange-inferior; purple-resection margin. Section code: (A1) skin and soft tissue resection margins, apprenticeship training representative; (A2) bone resection margin, en face; (A3) skin and soft tissue, apprenticeship training representative; (A4) distal bone, apprenticeship training representative serial section. Note: The bone sections have been decalcified. ([id number]) /MRV . 02 Pathologist provided ICD-10: L03.031 . 02 CPT . 442061, [id number] Performed at: [facility] [address], [place], [place] [id number] MD Husam Mckeon MD Phone: [phone] Performed at: 02 [facility] [place] [address], [place] [id number] MD Yuridia Mancuso MD Phone: [phone]
--- NOTE | 2018-07-03 05:48 | PC.NURSE ---
Shift: Assessed pt's right foot 2nd toe and found that it is not blanchable, is cyanotic in color, firmer to palpation than toes on the same foot. MD was made aware on previous shift of change in status and this RN was told to just monitor changes.
--- NOTE | 2018-07-03 08:16 | PM.PNPO.1 ---
Subjective Date Patient Seen: 07/03/18 Time Patient Seen: 07:00 Interval history: POD2 s/p R foot I&D, mt head resections and pinning pain controlled. 2nd toe more dusky today. decreased refill on scheduled IV ABX MSSA growning from blood and foot ulcer/abscess Exam Vital Signs (past 8 hours): - 07/03/18 01:00 07/03/18 05:00 Temperature 97.9 F 99.0 F Pulse Rate 75 94 H Respiratory Rate 18 18 Blood Pressure 107/71 139/84 Pulse Oximetry 96 97 Oxygen Delivery Method Room Air Oxygen Flow Rate 0 Narrative Exam Narrative: A&O NAD breathing unlabored RA, LCTA heart RRR VSS. has had a few episodes on tachy or near tachycardia MSK: RLE: bandage removed this AM. sutures in place. 2nd toe dusky, purple, sno longer blanching as it did previously. there are no contricting bandages, pin removed without change in appearance, dusky from PIP distal. DP palpable. remainder of toes wwp and pink with brisk cap refill. K wires in place 3-4-5 toes. no purulent drainage from plantar incision mild serosang drainage on dressings. distal 2nd digit swollen with dorsal blister forming. previousl noted plantar second MTP blister in resolving. Objective Labs Result Diagrams: 06/30/18 06:35 06/30/18 06:35 Assessment & Plan Post-op Postoperative Procedures Operation Date: 07/01/18 18:45 Actual Procedures Side Surgeon p Foot ulcer I&D Right Elizabeth Bell MD s Hammertoe Correction w/Metatarsal head resection and hammer toe corrections lesser toes, second, third, fourth, fifth Right Elizabeth Bell MD Operation Date: 07/03/18 12:00 <No data on this case meets the specified criteria> POD 2 2nd toe more dusky today, purple-- had previously decent blanching but the day yesterday and overnight, no longer blanching. dressing had been completely loose and pin lossened as well w/o improvement and pin now pulled without improvement. Dicussed toe would like not survive and had significant insult from infection swelling, and deformity correction despite shortening. offered 2nd toe amp vs giving it more time--but would expect it would likely require amputation in the near future. Pt agrees to amputation of toe. will add on today. risks and benefits discussed and consented and marked. npo. overall pt wBC has improved significant from admission with IV ABx and abscess drainage in this pt with neuopathic ulcer, bacteremia, and immunocompromise--RA on immunomodulators and steroids. The risks, benefits and alternative were again discussed in detail and informed consent obtained. the toe was marked. I feel this would lead to the best chance of good healing and limit morbidity. NPO Quality VTE Deep Vein Thrombosis/Pulmonary Embolism Present on Admission: No
[2018-07-03] MEDS: METOPROLOL ER 25 MG TABLET PO ×2 (10:06→20:40)
--- NOTE | 2018-07-03 10:40 | PT.IPTN ---
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 with unspecified severity (06/28/18) Rheumatoid arthritis, unspecified (06/28/18) Osteomyelitis, unspecified (06/28/18) Acute kidney failure, unspecified (06/28/18) Surgery Performed Operation Date: 07/01/18 18:45 Actual Procedures p Foot ulcer I&D(Right) - Elizabeth Bell MD s Hammertoe Correction w/Metatarsal head resection and hammer toe corrections lesser toes, second, third, fourth, fifth(Right) - Elizabeth Bell MD Operation Date: 07/03/18 12:00 <No data on this case meets the specified criteria> Physical Therapy Treatment Note M2 PT-IP Current Condition Start: 06/30/18 10:58 Freq: NEEDED Status: Active Protocol: Document 06/30/18 10:06 (Rec: 06/30/18 11:24 [email or web address]) Physical Therapy Current Condition Current Condition Evaluation Date 06/30/18 Treatment Diagnosis R foot cellulitis; impaired mobility Onset Date 06/28/18 Precautions Other Precautions Contact precautions Weight Bearing Status Weight Bearing Status Weight Bear as Tolerated Allowed Weight Bearing Amount (enter % Pt has no formal weight or #) (%) bearing precautions, but current activity orders are bed rest with bathroom privelages. Pt advised by PT to limit ambulation/standing until infection is further resolved. M3 PT-IP Subjective Start: 06/30/18 10:58 Freq: NEEDED Status: Active Protocol: Document 07/03/18 10:39 AB (Rec: 07/03/18 10:40 AB [id number]) Subjective Physical Therapy Visit Type Notes PT eval on hold for today. pt will be undergoing another foot surgery at 2 pm today. will f/u tomorrow. M4 PT-IP Mobility and Gait Start: 06/30/18 10:58 Freq: NEEDED Status: Active Protocol: Document 06/30/18 10:06 (Rec: 06/30/18 11:24 [email or web address]) PT-Bed Mobility Assessment Supine to Sit Supine to Sit Standby Assistance Head of Bed Elevated Sit to Supine Sit to Supine Standby Assistance Head of Bed Elevated Scooting Scooting to Edge of Bed Independent Scooting Up and Down in Bed Independent PT-Transfer Assessment Sit to and From Stand Sit to and from Stand Standby Assistance Equipment Transfer Assistive Device None Front Wheeled Walker Orthotic/Prosthetic Devices or Brace: No Transfers Transfer Destination Bed Transfer Technique Ambulated in room to/from bed. Comments Mobility Comments Assessed pt with fww and without AD for sit <> stand. He needed cuing for sit <> stand with fww SBA. Without AD, pt performs sit <> stand from toilet SBA. Bed mobility including scooting, supine <> sit is independent. Gait Assessment Gait Gait Assistance Required: Standby Assistance Distance (Feet) 60 Able to Maintain Weight Bearing Status Yes During Gait Assistive Devices Assistive Device None Gait Belt Front Wheeled Walker Orthotic/Prosthetic Devices or Brace: No Gait Deviations General Gait Pattern Within Normal Limits Factors Limiting Gait Function Factors Limiting Gait Function Decreased Activity Tolerance Decreased Sensation Decreased Strength Limited Range of Motion Poor Balance Poor Safety Awareness Comments Gait Comments Assessed pt ambulation 15 ft with fww SBA. Despite max cues, pt impulsive and pushing fww far in front of him and picks it up instead of rolling . Assessed ambulation 60 ft in room without AD, pt is SBA, no LOB, gait mechanics WNL. PT-Balance Assessment Sitting Balance and Reactions Static Sitting Balance Ability Good Dynamic Sitting Balance Ability Good Standing Balance and Reactions Static Standing Balance Ability Good Dynamic Standing Balance Ability Fair Device Used none M5 PT-IP Objective Assessments Start: 06/30/18 10:58 Freq: NEEDED Status: Active Protocol: Document 06/30/18 10:06 (Rec: 06/30/18 11:24 [email or web address]) Orientation Orientation/Cognition Level of Alertness Alert Orientation Name Age Birthday Month Date Year Day of Week Place Situation Language Function Ability No Deficits Noted Safety Awareness Decreased Safety Awareness Gross Range of Motion Lower Extremity ROM Assessment Within Functional Limits Strength Lower Extremity Strength Assessment Within Functional Limits Sensation Assessment Sensation Light Touch Absent Sensation Description Numbness Comments Sensation Comments Light touch sensation is absent in stocking-glove distribution B feet, distal to mid calf. Pt states you could stick a knife in his feet and he wouldn't know. M6 PT-IP Treatment Start: 06/30/18 10:58 Freq: NEEDED Status: Active Protocol: Document 06/30/18 10:06 (Rec: 06/30/18 11:24 [email or web address]) Physical Therapy Treatment Exercises Exercises Ankle Pumps Quad Sets Heel Slides Education Education Provided Safety Other Treatments Other Treatment Performed Pt education regarding inspecting shoe wear and feet before and after ambulation. Ankle pumps X20; Heel slides X20; Quad sets X20. Pt instructed to follow up on these exercises every hour to maintain strength and improve circulation and healing of R foot. M7 PT-IP Assessment and Plan Start: 06/30/18 10:58 Freq: NEEDED Status: Active Protocol: Document 06/30/18 10:06 (Rec: 06/30/18 11:24 [email or web address]) PT Summary Assessment and Plan Potential Rehabilitation Potential Good Status of Condition at Evaluation Stable Summary Impairments ROM Strength Balance Sensation Transfers Gait Activity Tolerance Progress Towards Goals Progressing Toward Goals Assessment Summary Pt with R foot ulcer and cellulitis. At this time the pt is at his stated baseline functional mobility. He was able to ambulate 75 ft in room using no AD SBA and was SBA with sit <> stand transfers including from a low toilet seat without use of UE. He was educated in HEP to maintain strength and improve circulation for healing. At this time it is anticipated that he will be safe in his home environment and recommend d/c to home with 24/7 assist when pt is medically stable. D/c from PT program at this time pending change in pt status as he has no further goals for functional mobility to address at this time in the acute care setting. Goals Bed Mobility Goal Independent Transfer Goal Independent Gait Goal Independent Frequency of Treatment Frequency Of Treatment Discharge Recommendations To Nursing Amount of Assist Needed Standby Assistance Discharge Recommendations PT Discharge Recommendations Home with 24/7 Assist
--- NOTE | 2018-07-03 11:09 | PM.PREOP ---
Pre-operative Note Interval Note Pre-op Check: Yes History & Physical Reviewed by Physician and Yes Exam Performed Changes: No H&P completed within 30 days and has changed as indicated here:: toe with unchanged appearance--appropriate for amputation
--- NOTE | 2018-07-03 12:10 | PC.NURSE ---
Pts dressing is CDI, Dr. Garcia into see pt this am around 0700. Pin has been removed from second toe, to see if circulation would be better in toe. Area is still a purplish blackish color. Dr. Garcia has decided to do surgery on pt and he will be having that toe amputated. He is NPO, Given Metoprolol with small drink of water and rest of po meds have been held until after procedure. He is resting comfortably at this time.
[2018-07-03] MEDS: LACTATED RINGERS 1,000 ML 42 ML IV (13:50)
--- NOTE | 2018-07-03 13:52 | SUR.PREOP ---
New IV start not done as PICC used instead.
[2018-07-03] MEDS: CEFTRIAXONE 2 GM/50 ML FROZ.PIGGY IV (14:16)
--- NOTE | 2018-07-03 14:44 | SUR.OPER ---
Supine on padded OR bed, head on pillow, arms secured on padded arm boards at <90 degrees abduction, legs uncrossed, safety belt at thigh, tape over blanket over lower legs.
--- NOTE | 2018-07-03 15:20 | PM.OP.1 ---
Operative Date/Time/Diagnoses Date of procedure: 07/03/18 Time of procedure: 14:31 Pre-op diagnosis: 1. Right foot ulcer with infection and gangrene, vascular compromise right 2nd toe 2. Rheumatoid arthritis affecting multiple joints 3. Ulcer to bone with osteomyelitis right foot 4. Bacteremia Post-op diagnosis: same Procedure & Clinicians Procedure: 1. Amputation right 2nd toe at the MTP joint. CPT code [id number] Same procedure as scheduled: Yes Indications: The patient is a 73-year-old male with a history of rheumatoid arthritis on steroids and disease modifying medications. Patient has a history of a right plantar forefoot ulcer osteomyelitis and septic arthritis. 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 Intraoperatively the patient was noted to have a significant infectious involvement of his 2nd toe metatarsophalangeal joint. This was washed out thoroughly. The toe was shortened and reduced and pinned. It was noted to have the appearance of venous congestion at the end of the procedure but had brisk blanching. Over the course of the next 24 hr the toe became more dark and was no longer blanching with gentle pressure. The dressings had been loosened and there was no constriction. The K-wire had been loosened and then removed, without improvement. At this point a discussion was had with the patient in the toe was felt to be nonviable secondary to multiple insults from the infection, extensive swelling, and the insult of surgery and deformity correction. Patient was indicated for amputation at the metatarsophalangeal joint. The risks benefits and alternatives to the procedure were discussed with the patient including but not limited to recurrent infection, deformity, wound problems, slow healing, need for wound care, pain and the risks of a general anesthetic. The patient elected to proceed. Informed consent was signed and the patient was marked. Surgeon: Elizabeth Bell Click Yes if Unassisted: Yes Anesthesia Type: General Operative Notes Findings: The right 2nd toe demonstrated severe venous congestion with no blanching from the level of the PIP joint distal. There is dorsal and medial blistering. The toe was amputated at the level of the metatarsal phalangeal joint. The wound was irrigated. No additional gross purulence was seen however the distal aspect of the proximal phalanx did appear degenerative. This was sent to pathology Closure Type: primary Specimen(s): other (Second toe right foot for pathology) Implants & Drains: None Estimated Blood Loss (mL): 5 Blood products transfused: none Tourniquet time (min): 0 Procedure in detail: Patient was seen in the preoperative area the site of surgery had been marked. The informed consent was confirmed. Patient was then brought back to the operating room by the anesthesia team. General anesthesia was administered on the bed and the patient was then transferred to the operative table and positioned in the supine position. All bony prominences were padded. A thigh bump was placed on the ipsilateral side compensate for his external rotation. A well-padded thigh tourniquet was placed but not elevated during the procedure. The right lower extremity was prepped and draped in the standard sterile fashion. Formal time-out procedure was performed confirming the patient's side and site of surgery and administration of preoperative antibiotics and this case was the patient scheduled organism specific Rocephin which was administered a less than half an hour prior to incision. All were in agreement. Attention was turned to the patient's right 2nd toe this was purplish in color and did not mayo the level of the PIP joint distal. The amputation level was marked out on the skin in a gentle ellipse pattern connecting the previously made a dorsal and plantar incisions from the previous surgery. The toe was excised and sent for pathology. The wound was thoroughly irrigated with 1 L of sterile saline there is no further purulence noted. The surgical wound was adequately irrigated and cleaned again the remaining of flexor and extensor tendons were cut proximally and allowed to retract. The skin was closed in layers with 2 PDS deep and 4 O nylon in the skin. Tourniquet was not used during this case. The remaining wound edges were nicely pink. And all remaining digits had excellent of brisk capillary refill. Sterile dressings were placed with Xeroform gauze and gauze between the toes and gauze over the incisions. The wrapped with Kerlix. Endcaps were placed on the previous K-wires from the other toes in the previous surgery. An Jack wrap was placed. Patient was placed back in a posterior splint. Patient was awoken from surgery and taken to the PACU in good condition. There were no immediate complications from this procedure. All counts were correct. Complications: none Condition: stable Disposition: PACU Plan for aftercare: The patient will be admitted to the floor. He may be transitioned out of his posterior splint to his Darco offloading shoe. The dressing will stay in place. He will continue on his scheduled IV antibiotics for his infection and bacteremia. His K-wires will stay in place 4-6 weeks. He will follow up in approximately 2 weeks for a wound check. I anticipate keeping his sutures minimum 3 weeks. Patient will continue on his DVT prophylaxis with enoxaparin while in the hospital
[2018-07-03] MEDS: SODIUM CHLORIDE 0.9% FLUSH 10 ML IV ×2 (15:51→20:41)
[2018-07-03] MEDS: TAMSULOSIN 0.4 MG CAPSULE PO (16:14)
[2018-07-03] MEDS: predniSONE 20 MG TABLET 40 MG PO (16:14)
--- NOTE | 2018-07-03 16:49 | P.PN_ITS ---
Subjective Date Patient Seen: 07/03/18 Interval history: Patient had right 2nd toe amputation earlier today. Vitals have been stable. On Rocephin for methicillin sensitive Staph aureus positive wound and blood cultures. Exam Vital Signs (past 8 hours): - 07/03/18 11:58 07/03/18 12:20 07/03/18 13:38 Temperature 98.7 F 99.3 F Pulse Rate 99 H 100 H Respiratory Rate 16 14 Blood Pressure 150/99 H 144/88 H Pulse Oximetry 94 95 96 07/03/18 15:12 07/03/18 15:17 07/03/18 15:21 Temperature 98.1 F Pulse Rate 96 H 99 H 90 Respiratory Rate 16 20 16 Blood Pressure 121/77 117/77 124/78 Pulse Oximetry 91 98 95 07/03/18 15:25 07/03/18 15:31 07/03/18 15:36 Temperature Pulse Rate 90 90 88 Respiratory Rate 12 10 L 15 Blood Pressure 123/81 113/70 112/67 Pulse Oximetry 93 93 95 07/03/18 15:41 07/03/18 15:46 Temperature 98.5 F Pulse Rate 94 H 92 H Respiratory Rate 16 16 Blood Pressure 111/74 116/81 Pulse Oximetry 93 93 Oxygen Delivery Method Room Air Oxygen Flow Rate 2 Narrative Exam Narrative: General: Alert, pleasant and no acute distress seen postop on the floor Lungs: Clear to auscultation Heart: Regular rhythm Extremities: No pretibial edema, right ft postop dressing Objective Labs Result Diagrams: 06/30/18 06:35 06/30/18 06:35 Assessment & Plan Plan: Assessment/Plan Narrative: 1. Pressure ulcer and acute osteomyelitis right foot, stage IV: Patient is status post extensive surgery on 07/01/[address] Bell. He had right 2nd toe amputation on 07/03/2018 due to gangrene. Both blood and wound cultures grew methicillin sensitive Staph aureus. He is getting Rocephin 2 g IV Q 24 hr via PICC line for anticipated 6 week course. Likely IV antibiotic will be continued in senior care facility setting. 2. Rheumatoid arthritis: He has maintained at home on 5 prednisone 5 mg daily in addition to Remicade. In-hospital his prednisone dose was bumped up to 40 mg daily due to flare-up of arthritis in his shoulders. Patient states pain in both shoulders is much better with increase in prednisone. Typically he does a taper over 10 day period back to his maintenance dose. 3. Acute kidney injury, pre renal: Resolved with IV hydration. 4. Hypertension: Continued metoprolol tartrate 25 mg twice daily. 5. Disposition: Patient medically stable and likely can discharge to senior care tomorrow, Friday to continue IV antibiotic. Per Dr. Bell instructions postop dressing will stay in place. He is transitioned to Darco offloading shoe. He needs ortho follow-up in [address] Bell. Quality VTE Deep Vein Thrombosis/Pulmonary Embolism Present on Admission: No
[2018-07-03] MEDS: DOCUSATE 100 MG CAPSULE PO (20:41)
[2018-07-04] VITALS (10 sets, daily range): BP systolic 118–142; BP diastolic 75–86; PULSE 72–86; RESP 16–22; TEMP 36.3–36.6; O2SAT 94–99
--- NOTE | 2018-07-04 00:24 | PC.NURSE ---
Addendum entered by Kym Gonzalez R.N. 07/04/18 06:16: O2 back at 2L/min as does desat into 80's when asleep. Patient reports he has had sleep study and had a CPAP but can't sleep on back so CPAP did not work. Additionally states told him he will stop breathing for 10 seconds when sleeping on back. Positioned bed so patient is more on right side. Sat currently in upper 90's when awake on 2L/min oxygen. Leg repositioned on pillows to elevate but patient denies any pain at current time. Original Note: Patient is alert and oriented. Breath sounds CTA with oxygen at 2L/min and sat of 98% when awake/96% when asleep so oxygen decreased to 1L/min and will continue to monitor on continuous pulse oximetry. HR irregularly irregular. Denies nausea. BT present and is passing flatus. Voiding per urinal and denies any urinary problems/concerns. Able to turn self in bed. Right foot is dressed with splint, kerlix and tish. Some bone pins visible. Able to move great toe but feeling is compromised due to chronic neuropathy. Capillary refill is < 2 seconds. Toes are warm to touch. Has chronic neuropathy in bilateral LE and tips of fingers on both hands. Denies pain. Wearing SCD on left leg. Fall risk score is high and bed alarm is activated.
--- NOTE | 2018-07-04 09:01 | PT.IIE ---
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 with unspecified severity (06/28/18) Rheumatoid arthritis, unspecified (06/28/18) Osteomyelitis, unspecified (06/28/18) Acute kidney failure, unspecified (06/28/18) Surgery Performed Operation Date: 07/01/18 18:45 Actual Procedures p Foot ulcer I&D(Right) - Elizabeth Hernandez MD s Hammertoe Correction w/Metatarsal head resection and hammer toe corrections lesser toes, second, third, fourth, fifth(Right) - Elizabeth Hernandez MD Operation Date: 07/03/18 12:00 Actual Procedures p 2nd Toe Amputation(Right) - Elizabeth Hernandez MD Surgical History (Last Reviewed 07/01/18 @ 06:52 by Elizabeth Hernandez MD) History of appendectomy (Acute) History of right knee joint replacement (Acute) Medical History (Last Reviewed 07/01/18 @ 06:52 by Elizabeth Hernandez MD) Bilateral arm fractures (Acute) Leg fracture, right (Acute) Prostate cancer (Acute) Neuropathy (Acute) Rheumatoid arthritis (Acute) Physical Therapy Inpatient Evaluation/Re-Eval M1 PT/OT-IP Prior Functional Status Start: 06/30/18 10:58 Freq: NEEDED Status: Active Protocol: Document 07/04/18 09:01 AB (Rec: 07/04/18 13:00 AB [id number]) Medical Review Prior Functional Status Medical History Reviewed Yes Communication able to make needs known Mobility and Gait stated that he is independent with all mobilities and ambulation without AD Social History Household Members spouse Living Arrangements House Number of Floors (Floors) One Floor Number of Stairs To Enter/Railing? Ramp to enter. Home Environment High Toilet Walk in Shower Home Equipment Front Wheel Walker Straight Cane Hand Held Shower Employment Status Retired Additional Social History Comment has an adjustable bed. pt already has his own offloading darco boot from previous foot problem. M2 PT-IP Current Condition Start: 06/30/18 10:58 Freq: NEEDED Status: Active Protocol: Document 07/04/18 09:01 AB (Rec: 07/04/18 13:00 [id number]) Physical Therapy Current Condition Current Condition Evaluation Date 07/04/18 Treatment Diagnosis s/p R metatarsal head excision /pinning; difficulties in walking Onset Date 06/28/18 Precautions Brace clarification order per nurse: posterior splint on when in bed and offloading darco boot when oob Other Precautions per Dr hernandez's note: heel weight bearing on R foot with minimal weight bearing for transfers and minimal ambulation as needed Weight Bearing Status Weight Bearing Status Weight Bear as Tolerated Allowed Weight Bearing Amount (enter % heel weight bearing with off or #) (%) loading shoe M3 PT-IP Subjective Start: 06/30/18 10:58 Freq: NEEDED Status: Active Protocol: Document 07/04/18 09:01 (Rec: 07/04/18 13:00 [id number]) Subjective Physical Therapy Visit Type Type Initial Evaluation Visit Start Time 09:01 Visit Stop Time 09:31 Total Visit Minutes 30 Number of WATERPROOFER Visits 0 Physical Therapy Visit Comments Patient Comments i can't wait to get up Therapy Pain Assessment Pain When Pain Assessed At Rest Pain Present Pain Present Pain Reported Location Right Foot Intensity 1 Scale Used Numeric (1 - 10) Pain Management Techniques Re-positioning M4 PT-IP Mobility and Gait Start: 06/30/18 10:58 Freq: NEEDED Status: Active Protocol: Document 07/04/18 09:01 (Rec: 07/04/18 13:00 [id number]) PT-Bed Mobility Assessment Supine to Sit Supine to Sit Standby Assistance Sit to Supine Sit to Supine Standby Assistance Scooting Scooting to Edge of Bed Standby Assistance Scooting Up and Down in Bed Standby Assistance PT-Transfer Assessment Sit to and From Stand Sit to and from Stand Contact Guard Assistance Equipment Transfer Assistive Device Gait Belt Front Wheeled Walker Orthotic/Prosthetic Devices or Brace: No Transfers Transfer Destination Chair Transfer Technique pt ambulated to the chair Transfer Ability Level of Assist Contact Guard Assistance Comments Mobility Comments nurse assisted with taking R LE posterior splint off Gait Assessment Gait Gait Assistance Required: Contact Guard Assist Distance (Feet) 40 Able to Maintain Weight Bearing Status Yes During Gait Assistive Devices Assistive Device Gait Belt Front Wheeled Walker Orthotic/Prosthetic Devices or Brace: No Gait Deviations General Gait Pattern Antalgic Decreased Stride Length Decreased Feet Clearance Factors Limiting Gait Function Factors Limiting Gait Function Decreased Activity Tolerance Decreased Strength Limited Range of Motion Pain Poor Balance Poor Safety Awareness Comments Gait Comments pt used R offloading darco boot during ambulation. pt can be impulsive. educated pt on safety and regarding doctor's order for minimal weight bearing and minimal ambulation. instructed pt to use UE more to support body weight during ambulation to minimize weight bearing on RLE . pt understood. PT-Balance Assessment Sitting Balance and Reactions Static Sitting Balance Ability Good Dynamic Sitting Balance Ability Good Standing Balance and Reactions Static Standing Balance Ability Fair Dynamic Standing Balance Ability Fair Device Used FWW M5 PT-IP Objective Assessments Start: 06/30/18 10:58 Freq: NEEDED Status: Active Protocol: Document 07/04/18 09:01 AB (Rec: 07/04/18 13:00 AB [id number]) Orientation Orientation/Cognition Level of Alertness Alert Orientation Name Age Birthday Month Date Year Day of Week Place Situation Safety Awareness Decreased Safety Awareness Gross Range of Motion Lower Extremity ROM Assessment Within Functional Limits Strength Lower Extremity Strength Assessment Within Functional Limits Sensation Assessment Sensation Gross Sensation Right LE Impaired Left LE Impaired Light Touch Absent Comments Sensation Comments absent light touch sensation on BLE from mid leg down to feet M6 PT-IP Treatment Start: 06/30/18 10:58 Freq: NEEDED Status: Active Protocol: Document 07/04/18 09:01 AB (Rec: 07/04/18 13:00 AB [id number]) Physical Therapy Treatment Education Education Provided Precautions Weight Bearing Status Safety M7 PT-IP Assessment and Plan Start: 06/30/18 10:58 Freq: NEEDED Status: Active Protocol: Document 07/04/18 09:01 AB (Rec: 07/04/18 13:00 AB [id number]) PT Summary Assessment and Plan Potential Rehabilitation Potential Fair Status of Condition at Evaluation Stable Summary Impairments Pain Strength Balance Coordination Sensation Cognition Bed Mobility Transfers Gait Activity Tolerance Assessment Summary pt requiring CGA with mobility using FWW. d/c plan depending on progress. If spouse is able to assist pt at home, pt may go home when medically stable and will need homehealth PT for strengthening and balance training. Goals Bed Mobility Goal Independent Transfer Goal Independent Front Wheeled Walker Gait Goal Independent Front Wheel Walker Gait Distance 50 Other Goals gait distance goal limited due to doctor's order for minimal ambulation due to recent R foot surgery. Days to Meet Goals 3 Frequency of Treatment Frequency Of Treatment Once a Day Treatment Plan Physical Therapy Treatment Plan Bed Mobility Training Transfer Training Gait Training Therapeutic Exercise Balance Retraining Post Op Education Discharge Planning Hot or Cold Pack Neuromuscular Re-ed Coordination Retraining Manual Therapy Recommendations To Nursing Amount of Assist Needed 1 Person Assist Discharge Recommendations PT Discharge Recommendations Home with 10/03 Assist Home Health
[2018-07-04] MEDS: METOPROLOL ER 25 MG TABLET PO ×2 (09:23→20:53)
[2018-07-04] MEDS: ENOXAPARIN 40 MG/0.4 ML SYRINGE SUBCUT (09:25)
[2018-07-04] MEDS: predniSONE 20 MG TABLET 40 MG PO (09:25)
[2018-07-04] MEDS: TAMSULOSIN 0.4 MG CAPSULE PO (09:25)
[2018-07-04] MEDS: SODIUM CHLORIDE 0.9% FLUSH 10 ML IV ×3 (09:25→20:54)
[2018-07-04] MEDS: DOCUSATE 100 MG CAPSULE PO ×2 (09:25→20:54)
--- NOTE | 2018-07-04 10:26 | PM.PNPO.1 ---
Subjective Date Patient Seen: 07/04/18 Time Patient Seen: 10:26 Interval history: POD #1 status post amputation of 2nd toe with Dr. Bell. Patient doing well this morning. No complaints. Exam Vital Signs (past 8 hours): - 07/04/18 04:25 07/04/18 07:28 07/04/18 07:40 Temperature 97.8 F 97.5 F L Pulse Rate 72 78 Respiratory Rate 21 18 Blood Pressure 129/77 118/86 Pulse Oximetry 98 95 97 07/04/18 09:23 Temperature Pulse Rate 86 Respiratory Rate Blood Pressure 129/79 Pulse Oximetry Oxygen Delivery Method Room Air Oxygen Flow Rate 0 Narrative Exam Narrative: Patient lying in bed no acute distress. He is alert and oriented x3. Dressing on right foot is CDI. Posterior splint in place. Calves are soft, compressible, nontender bilaterally. Sensation intact to light touch throughout bilateral lower extremities. Objective Labs Result Diagrams: 06/30/18 06:35 06/30/18 06:35 Assessment & Plan Post-op (1) Pressure ulcer of right foot, stage 4: Problem details: patient had definitive surgery for this Current Visit: Yes Status: Acute (2) Osteomyelitis: Problem details: MSSA from blood and wound growing. Now on Ceftriaxone 2 grams IV. He will need a total of 6 weeks IV antibiotics. this will likely be via the SNF as patient may not be eligible to receive this at home Current Visit: Yes Status: Acute (3) Hypertension: Problem details: Continue Metoprolol Current Visit: Yes Status: Acute (4) Rheumatoid arthritis: Problem details: . Current Visit: Yes Status: Acute (5) Acute renal failure: Problem details: Continue IV hydration and follow up in am. Significantly improved Current Visit: Yes Status: Acute (6) Cellulitis of right foot: Problem details: continue antibiotics, blood cultures growing MSSA, patient on Ceftriaxone for now Current Visit: No Status: Acute Postoperative Procedures Operation Date: 07/01/18 18:45 Actual Procedures Side Surgeon p Foot ulcer I&D Right Elizabeth Bell MD s Hammertoe Correction w/Metatarsal head resection and hammer toe corrections lesser toes, second, third, fourth, fifth Right Elizabeth Bell MD Patient is to wear a posterior splint when in bed to protect pin sites and dressing. When he is out of bed he needs to be wearing his Darco offloading shoe when ambulating. Leave dressing in place. Patient will follow-up with Dr. Bell in clinic. Hospitalist managing care. Operation Date: 07/03/18 12:00 Actual Procedures Side Surgeon p 2nd Toe Amputation Right Elizabeth Bell MD Quality VTE Deep Vein Thrombosis/Pulmonary Embolism Present on Admission: No
--- NOTE | 2018-07-04 10:41 | PC.NURSE ---
Day Shift- Pt reports no pain to Right foot, states feels pressure when movie writer assessing circulation. RLE elevated on pillows while in bed. RLE outer tish wrap removed to remove splint while pt working with PT OOB movement. Okay per JOSEE Wen/Dr. Bell to remove tish wrap in order to put ortho shoe on for OOB support. When pt is in bed, replace Splint or ortho shoe should be on. Right foot dressing has small amount of bloody drainage, about a quarter size to top of foot near where foot meets toes. Also small less than dime size drainage sanguineous to right outer foot. Pt OOB to recliner chair with PT at 1045.
--- NOTE | 2018-07-04 10:44 | CM.DPC ---
Addendum entered by Marycarmen Michael LPN 07/04/18 13:05: Ortho JOSEE Wen is updated, agrees with [facility] plan Friday. She will discuss with Dr. Wilson. Original Note: Addendum entered by Marycarmen Michael LPN 07/04/18 11:55: Met with pt as planned and after a discussion with the ortho team: Dr. Rodriguez and JOSEE Wen. Both confirm the need for snf stay, not only for the IV antibiotics but for the overall aggregate of care needs. Pt agreeable to snf stay: choice list provided: decision: [facility]. Referral: [facility]/will review and anticipates acceptance but not until Friday/07/06. Clinical is faxed now to [facility]'s fax [phone]. Need: PAS[facility] Original Note: DCP: continued: Case received yesterday and discussed in Team Rounds. Pt was to go to surgery later in the day for further amputation. (ortho/podiatry team). Note now Dr. Aiken's note of late yesterday afternoon re the identification of the plan for 4-6 weeks IV antibiotics and he noted this would likely be done in a snf setting. No discussion of same with Dr. Aiken as this was after CM hours. Hospitalist Dr. Wilson is here today seeing pt. Discussed plan: Pt expected to be stable for d/c to snf setting tomorrow. Will meet now with pt and follow. (Review of prior DCP notes shows that pt was expected to go home with [facility]).
--- NOTE | 2018-07-04 10:45 | PM.PN.1 ---
Subjective Date Patient Seen: 07/04/18 Interval history: POD #2 status post amputation of 2nd toe with Dr. Bell. Patient doing well this morning. No complaints. He is quite talkative today and enjoys describing some of his life's experiences. Cultures are growing MSSA so the plan is for [facility] facility Rocephin IV for 6 weeks. The rheumatoid arthritis and hypertension remain stable. Exam Vital Signs (past 8 hours): - 07/04/18 04:25 07/04/18 07:28 07/04/18 07:40 Temperature 97.8 F 97.5 F L Pulse Rate 72 78 Respiratory Rate 21 18 Blood Pressure 129/77 118/86 Pulse Oximetry 98 95 97 07/04/18 09:23 Temperature Pulse Rate 86 Respiratory Rate Blood Pressure 129/79 Pulse Oximetry Oxygen Delivery Method Room Air Oxygen Flow Rate 0 Narrative Exam Narrative: Alert, oriented x3, talkative and friendly. Heart is regular rate and rhythm without murmur. Lungs clear to auscultation bilaterally. The right foot is in a brace/wrap with several pins in toes 3 and 4 and the 2nd toe missing. Objective Labs Result Diagrams: 06/30/18 06:35 06/30/18 06:35 Assessment & Plan Plan: Assessment/Plan Narrative: 1. Pressure ulcer and acute osteomyelitis right foot, stage IV: Patient is status post extensive surgery on 07/01/[address] Bell. He had right 2nd toe amputation on 07/03/2018 due to gangrene. Both blood and wound cultures grew methicillin sensitive Staph aureus. He is getting Rocephin 2 g IV Q 24 hr via PICC line for anticipated 6 week course. Likely IV antibiotic will be continued in [facility] facility setting. 2. Rheumatoid arthritis: He has maintained at home on 5 prednisone 5 mg daily in addition to Remicade. In-hospital his prednisone dose was bumped up to 40 mg daily due to flare-up of arthritis in his shoulders. Patient states pain in both shoulders is much better with increase in prednisone. Typically he does a taper over 10 day period back to his maintenance dose so that will be initiated. 3. Acute kidney injury, pre renal: Resolved with IV hydration. 4. Hypertension: Continued metoprolol tartrate 25 mg twice daily. 5. Disposition: Patient medically stable and likely can discharge to [facility] tomorrow, as soon as arranged to continue IV antibiotic. Per Dr. Bell instructions postop dressing will stay in place. He is transitioned to Darco offloading shoe. He needs ortho follow-up in [address] Bell. Quality VTE Deep Vein Thrombosis/Pulmonary Embolism Present on Admission: No
--- NOTE | 2018-07-04 10:49 | P.PN_ITS ---
Subjective Date Patient Seen: 07/04/18 Interval history: POD #2 status post amputation of 2nd toe with Dr. Bell. Patient doing well this morning. No complaints. He is quite talkative today and enjoys describing some of his life's experiences. Cultures are growing MSSA so the plan is for [facility] Rocephin [facility] for 6 weeks. The rheumatoid arthritis and hypertension remain stable. Exam Vital Signs (past 8 hours): - 07/04/18 04:25 07/04/18 07:28 07/04/18 07:40 Temperature 97.8 F 97.5 F L Pulse Rate 72 78 Respiratory Rate 21 18 Blood Pressure 129/77 118/86 Pulse Oximetry 98 95 97 07/04/18 09:23 Temperature Pulse Rate 86 Respiratory Rate Blood Pressure 129/79 Pulse Oximetry Oxygen Delivery Method Room Air Oxygen Flow Rate 0 Narrative Exam Narrative: Alert, oriented x3, talkative and friendly. Heart is regular rate and rhythm without murmur. Lungs clear to auscultation bilaterally. The right foot is in a brace/wrap with several pins in toes 3 and 4 and the 2nd toe missing. Objective Labs Result Diagrams: 06/30/18 06:35 06/30/18 06:35 Assessment & Plan Plan: Assessment/Plan Narrative: 1. Pressure ulcer and acute osteomyelitis right foot, stage IV: Patient is status post extensive surgery on 07/01/[address] Bell. He had right 2nd toe amputation on 07/03/2018 due to gangrene. Both blood and wound cultures grew methicillin sensitive Staph aureus. He is getting Rocephin 2 g IV Q 24 hr via PICC line for anticipated 6 week course. Likely IV antibiotic will be continued in prison facility setting. 2. Rheumatoid arthritis: He has maintained at home on 5 prednisone 5 mg daily in addition to Remicade. In-hospital his prednisone dose was bumped up to 40 mg daily due to flare-up of arthritis in his shoulders. Patient states pain in both shoulders is much better with increase in prednisone. Typically he does a taper over 10 day period back to his maintenance dose so that will be initiated. 3. Acute kidney injury, pre renal: Resolved with IV hydration. 4. Hypertension: Continued metoprolol tartrate 25 mg twice daily. 5. Disposition: Patient medically stable and likely can [facility] to [facility], as soon as arranged to continue IV antibiotic. Per Dr. Bell instructions postop dressing will stay in place. He is transitioned to Darco offloading shoe. He needs ortho follow-up in [address] Bell. Quality VTE Deep Vein Thrombosis/Pulmonary Embolism Present on Admission: No
[2018-07-04] MEDS: CEFTRIAXONE 2 GM/50 ML FROZ.PIGGY IV (13:50)
[2018-07-04] MEDS: SODIUM CHLORIDE 0.9% 250 ML 21 ML IV (13:50)
[2018-07-05] VITALS (9 sets, daily range): BP systolic 118–141; BP diastolic 61–95; PULSE 61–75; RESP 18–95; TEMP 36.3–36.9; O2SAT 94–100
--- NOTE | 2018-07-05 01:36 | PC.NURSE ---
Patient is alert and oriented. Breath sounds CTA with RA sat of 97%. HRR. Denies nausea. BT present and was up to bathroom and had small soft stool. Voiding per urinal and denies dysuria, frequency or urgency. Turns self in bed. Up with walker and 1 assist. Denies pain. Neuropathy unchanged in bilateral feet to mid calf and fingertips of both hands. Right foot is elevated on pillows. Is able to move great toe but not other toes. All toes are warm with good capillary refill. Posterior splint applied at shift change since patient is in bed; to wear ortho boot when up. Dressing to right foot is CDI. Fall risk score is high and bed alarm is activated.
[2018-07-05] MEDS: ENOXAPARIN 40 MG/0.4 ML SYRINGE SUBCUT (08:48)
[2018-07-05] MEDS: SODIUM CHLORIDE 0.9% FLUSH 10 ML IV ×2 (08:48→20:10)
[2018-07-05] MEDS: predniSONE 10 MG TABLET 30 MG PO (08:49)
[2018-07-05] MEDS: TAMSULOSIN 0.4 MG CAPSULE PO (08:49)
[2018-07-05] MEDS: METOPROLOL ER 25 MG TABLET PO ×2 (08:49→20:08)
--- NOTE | 2018-07-05 10:40 | PM.PN.1 ---
Subjective Date Patient Seen: 07/05/18 Time Patient Seen: 11:59 Interval history: He is seen today to follow up the right foot infection, rheumatoid arthritis and hypertension. He is doing well and has been accepted for admission to the [facility] facility in [facility] tomorrow. He continues on IV antibiotics. He says there is less pain in the right foot. Exam Vital Signs (past 8 hours): - 07/05/18 04:05 07/05/18 07:33 Temperature 97.3 F L 97.3 F L Pulse Rate 75 75 Respiratory Rate 22 18 Blood Pressure 133/76 141/87 H Pulse Oximetry 100 97 Oxygen Delivery Method Room Air Oxygen Flow Rate 0 Narrative Exam Narrative: Alert and oriented x3, again he is animated and tells me several interesting stories about his life. Heart is regular rate and rhythm without murmur. Lungs are clear to auscultation bilaterally. Extremities have less swelling on the right foot. There are pins in the toes 3 and 4, with 2nd toe now amputated. Objective Labs Result Diagrams: 06/30/18 06:35 06/30/18 06:35 Assessment & Plan Plan: Assessment/Plan Narrative: 1. Pressure ulcer and acute osteomyelitis right foot, stage IV: Patient is status post extensive surgery on 07/01/[address] Bell. He had right 2nd toe amputation on 07/03/2018 due to gangrene. Both blood and wound cultures grew methicillin sensitive Staph aureus. He is getting Rocephin 2 g IV Q 24 hr via PICC line for anticipated 6 week course. This will be continued at [facility]. 2. Rheumatoid arthritis: He has maintained at home on 5 prednisone 5 mg daily in addition to Remicade. In-hospital his prednisone dose was bumped up to 40 mg daily due to flare-up of arthritis in his shoulders. Patient states pain in both shoulders is much better with increase in prednisone. Typically he does a taper over 10 day period back to his maintenance dose so it was decreased to 30 mg yesterday. 3. Acute kidney injury, pre renal: Resolved with IV hydration. 4. Hypertension: Continued metoprolol tartrate 25 mg twice daily. 5. Disposition: Patient medically stable and will be going to [facility] tomorrow, to continue the IV Rocephin. Per Dr. Bell instructions postop dressing will stay in place. He is transitioned to Darco offloading shoe. He needs ortho follow-up in [address] Bell. Quality VTE Deep Vein Thrombosis/Pulmonary Embolism Present on Admission: No
--- NOTE | 2018-07-05 11:02 | CM.DPC ---
Addendum entered by Marycarmen Michael LPN 07/05/18 14:56: [facility] just called, says pt is accepted. Says to continue the discussion tomorrow with Gisselle for specifics of the d/c. Requested van transport. Pt is updated now. Original Note: DCP: continued: met with pt this morning. He states his family was here last night and they all discussed his d/c plan. Plan identified now as : [facility]. 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 DIL works 5 minutes away. Referral called to: Ashley/ice cream mixer at [facility] [place] [place] and faxed to her educational technology coordinator area: [phone]. She said she will give it to Satish to review and let us know. P: await acceptance by [facility] before cancelling the [facility] referral. [facility] does say beds are available. DC to snf orders expected Friday 07/06. Van transport preferred. Son will take pt by car as backup plan. DCP team will be following tomorrow. Discussed with Dr. Wilson in Team Rounds.
[2018-07-05] MEDS: CEFTRIAXONE 2 GM/50 ML FROZ.PIGGY IV (13:08)
--- NOTE | 2018-07-05 16:21 | PT.IPTN ---
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 with unspecified severity (06/28/18) Rheumatoid arthritis, unspecified (06/28/18) Osteomyelitis, unspecified (06/28/18) Acute kidney failure, unspecified (06/28/18) Surgery Performed Operation Date: 07/01/18 18:45 Actual Procedures p Foot ulcer I&D(Right) - Elizabeth Hernandez MD s Hammertoe Correction w/Metatarsal head resection and hammer toe corrections lesser toes, second, third, fourth, fifth(Right) - Elizabeth Hernandez MD Operation Date: 07/03/18 12:00 Actual Procedures p 2nd Toe Amputation(Right) - Elizabeth Hernandez MD Physical Therapy Treatment Note M2 PT-IP Current Condition Start: 06/30/18 10:58 Freq: NEEDED Status: Active Protocol: Document 07/04/18 09:01 AB (Rec: 07/04/18 13:00 AB [id number]) Physical Therapy Current Condition Current Condition Evaluation Date 07/04/18 Treatment Diagnosis s/p R metatarsal head excision /pinning; difficulties in walking Onset Date 06/28/18 Precautions Brace clarification order per nurse: posterior splint on when in bed and offloading darco boot when oob Other Precautions per Dr hernandez's note: heel weight bearing on R foot with minimal weight bearing for transfers and minimal ambulation as needed Weight Bearing Status Weight Bearing Status Weight Bear as Tolerated Allowed Weight Bearing Amount (enter % heel weight bearing with off or #) (%) loading shoe M3 PT-IP Subjective Start: 06/30/18 10:58 Freq: NEEDED Status: Active Protocol: Document 07/05/18 14:23 CLB (Rec: 07/05/18 16:21 CLB [id number]) Subjective Physical Therapy Visit Type Type Treatment Note Visit Start Time 14:23 Visit Stop Time 14:52 Total Visit Minutes 29 Number of PIGS FEET CLEANER Visits 1 Physical Therapy Visit Comments Patient Comments Pt agreeable to do therapy. M4 PT-IP Mobility and Gait Start: 06/30/18 10:58 Freq: NEEDED Status: Active Protocol: Document 07/05/18 14:23 CLB (Rec: 07/05/18 16:21 CLB [id number]) PT-Bed Mobility Assessment Supine to Sit Supine to Sit Standby Assistance Sit to Supine Sit to Supine Standby Assistance Scooting Scooting to Edge of Bed Standby Assistance Scooting Up and Down in Bed Standby Assistance PT-Transfer Assessment Sit to and From Stand Sit to and from Stand Contact Guard Assistance Equipment Transfer Assistive Device Gait Belt Front Wheeled Walker Orthotic/Prosthetic Devices or Brace: No Transfers Transfer Destination Bed Transfer Ability Level of Assist Contact Guard Assistance Comments Mobility Comments Pt had darco boot on. Discussed WB before getting OOB. Gait Assessment Gait Gait Assistance Required: Contact Guard Assist Distance (Feet) 50 Able to Maintain Weight Bearing Status Yes During Gait Assistive Devices Assistive Device Gait Belt Front Wheeled Walker Orthotic/Prosthetic Devices or Brace: No Gait Deviations General Gait Pattern Antalgic Decreased Stride Length Decreased Feet Clearance Factors Limiting Gait Function Factors Limiting Gait Function Decreased Activity Tolerance Decreased Strength Limited Range of Motion Pain Poor Balance Poor Safety Awareness Comments Gait Comments Pt wearing R offloading darco boot upon arrival in room. Pt needs cues to use minimal WB on R heel and use UE to assist with offload weight from RLE. M5 PT-IP Objective Assessments Start: 06/30/18 10:58 Freq: NEEDED Status: Active Protocol: Document 07/04/18 09:01 AB (Rec: 07/04/18 13:00 AB [id number]) Orientation Orientation/Cognition Level of Alertness Alert Orientation Name Age Birthday Month Date Year Day of Week Place Situation Safety Awareness Decreased Safety Awareness Gross Range of Motion Lower Extremity ROM Assessment Within Functional Limits Strength Lower Extremity Strength Assessment Within Functional Limits Sensation Assessment Sensation Gross Sensation Right LE Impaired Left LE Impaired Light Touch Absent Comments Sensation Comments absent light touch sensation on BLE from mid leg down to feet M6 PT-IP Treatment Start: 06/30/18 10:58 Freq: NEEDED Status: Active Protocol: Document 07/05/18 14:23 CLB (Rec: 07/05/18 16:21 CLB [id number]) Physical Therapy Treatment Exercises Exercises Ankle Pumps Quad Sets Seated Knee Flexion/Extension Education Education Provided Precautions Weight Bearing Status Safety M7 PT-IP Assessment and Plan Start: 06/30/18 10:58 Freq: NEEDED Status: Active Protocol: Document 07/05/18 14:23 CLB (Rec: 07/05/18 16:21 CLB [id number]) PT Summary Assessment and Plan Potential Rehabilitation Potential Fair Status of Condition at Evaluation Stable Summary Impairments Pain Strength Balance Coordination Sensation Cognition Bed Mobility Transfers Gait Activity Tolerance Assessment Summary Pt is SBA for all bed mobility to EOB and continues to require CGA with ambulation. Pt stated he has a shoe at home that elevates his LLE to the same height as the RLE while wearing the Darco boot and may have it brought to hospital. Goals Bed Mobility Goal Independent Transfer Goal Independent Front Wheeled Walker Gait Goal Independent Front Wheel Walker Gait Distance 50 Other Goals gait distance goal limited due to doctor's order for minimal ambulation due to recent R foot surgery. Days to Meet Goals 3 Frequency of Treatment Frequency Of Treatment Once a Day Treatment Plan Physical Therapy Treatment Plan Bed Mobility Training Transfer Training Gait Training Therapeutic Exercise Balance Retraining Post Op Education Discharge Planning Hot or Cold Pack Neuromuscular Re-ed Coordination Retraining Manual Therapy Other Recommendations and Next Treatment gait to 50ft due to Focus precautions and ther ex. Recommendations To Nursing Amount of Assist Needed 1 Person Assist Discharge Recommendations PT Discharge Recommendations Home with 10/03 Assist Home Health
[2018-07-06 00:04] VITALS: O2SAT 95
[2018-07-06 03:10] VITALS: BP 131/77; PULSE 63; RESP 20; TEMP 36.4; O2SAT 97
[2018-07-06 06:18] LABS: Add Manual Diff / Slide Review NO; Basophils Percent Auto 0.3 % (0-2); Eosinophils Percent Auto 1.3 % (2-4); Hematocrit 37.5 % (41-53); Hemoglobin 12.8 g/dL (13.5-17.5); Lymphocytes Percent Auto 27.4 % (25-40); Mean Corpuscular HGB Conc 34.1 % (30-36); Mean Corpuscular Hemoglobin 31.6 PG (26-34); Mean Corpuscular Volume 92.6 fL (80-100); Neutrophils Absolute Auto 6000 /uL (3000-5900); Platelet Count 441 X10^3/uL (150-400); Red Blood Cell Count 4.05 X10^6/uL (4.5-5.9); White Blood Cell Count 9.6 X10^3/uL (4.5-11.0)
[2018-07-06 06:27] LABS: BUN Creatinine Ratio 35.6 (6-22); Blood Urea Nitrogen 32 mg/dL (9-20); Calcium 8.9 mg/dL (8.4-10.2); Carbon Dioxide 25 mmol/L (22-32); Chloride 106 mmol/L (98-107); Estimated Glomerular Filt Rate > 60.0 mL/min (>60); Glucose 90 mg/dL (80-110); HEMOLYSIS < 15 (0-50); Sodium 140 mmol/L (137-145)
[2018-07-06 07:00] VITALS: BP 144/93; PULSE 67; RESP 16; TEMP 36.4; O2SAT 96
[2018-07-06 07:43] VITALS: O2SAT 96
--- NOTE | 2018-07-06 07:46 | P.PN_ITS ---
Subjective Date Patient Seen: 07/06/18 Time Patient Seen: 07:41 Interval history: Pt is PD 3 and PD 5. S/P right foot surgery by Dr. Bell. States doing well. He is in a post-op shoe. Pain tolerable. He is suppose to be going to [facility] in [place] some time today. Exam Vital Signs (past 8 hours): - 07/06/18 00:04 07/06/18 03:10 Temperature 97.5 F L Pulse Rate 63 Respiratory Rate 20 Blood Pressure 131/77 Pulse Oximetry 95 97 Oxygen Delivery Method Room Air Oxygen Flow Rate 0 Narrative Exam Narrative: Patient in bed. Appears comfortable. Alert orient x3. Right foot in a postop shoe. Dressings clean dry and intact. Can move toe. Numbness all toes. Good tib post pulse. Objective Labs Result Diagrams: 07/06/18 06:00 07/06/18 06:00 Labs: Laboratory Results - last 24 hr 07/06/18 07/06/18 06:00 06:00 WBC 9.6 RBC 4.05 L Hgb 12.8 L Hct 37.5 L MCV 92.6 MCH 31.6 MCHC 34.1 RDW 14.0 Plt Count 441 H Neut % (Auto) 63.0 Lymph % (Auto) 27.4 [place] % (Auto) 8.0 Eos % (Auto) 1.3 L Baso % (Auto) 0.3 Neut # (Auto) 6000 H Sodium 140 Potassium 4.0 Chloride 106 Carbon Dioxide 25 BUN 32 H Creatinine 0.90 Estimated GFR > 60.0 BUN/Creatinine Ratio 35.6 H Glucose 90 Calcium 8.9 Assessment & Plan Post-op Postoperative Procedures Operation Date: 07/01/18 18:45 Actual Procedures Side Surgeon p Foot ulcer I&D Right Elizabeth Bell MD s Hammertoe Correction w/Metatarsal head resection and hammer toe corrections lesser toes, second, third, fourth, fifth Right Elizabeth Bell MD Operation Date: 07/03/18 12:00 Actual Procedures Side Surgeon p 2nd Toe Amputation Right Elizabeth Bell MD Patient is to wear a posterior splint when in bed to protect pin sites and dressing. When he is out of bed he needs to be wearing his Darco offloading shoe when ambulating. Leave dressing in place. Patient will follow-up with Dr. Bell in clinic 10-14 days. Hospitalist managing care. Quality VTE Deep Vein Thrombosis/Pulmonary Embolism Present on Admission: No
[2018-07-06] MEDS: predniSONE 10 MG TABLET 30 MG PO (09:06)
[2018-07-06] MEDS: METOPROLOL ER 25 MG TABLET PO (09:06)
[2018-07-06] MEDS: ENOXAPARIN 40 MG/0.4 ML SYRINGE SUBCUT (09:06)
[2018-07-06] MEDS: SODIUM CHLORIDE 0.9% FLUSH 10 ML IV (09:07)
[2018-07-06] MEDS: TAMSULOSIN 0.4 MG CAPSULE PO (09:07)
--- NOTE | 2018-07-06 09:24 | CM.DPC ---
DCP Cont: Checked in with patient. He wanted to know what time he would be going today. Called [facility], spoke to Gisselle. She stated that she would call us with a time of pick-up. She was working on transportation. Stated that is would probable be this afternoon sometime. As soon as she knows, she will call. Just received discharge order on patient. P: Patient will be going to [facility] for IV treatment. They will call with time of pick-up. When time is known, will update patient and nursing staff. Loreta Frausto RN/Distributor Operator
--- NOTE | 2018-07-06 09:27 | PT.IPTN ---
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 with unspecified severity (06/28/18) Rheumatoid arthritis, unspecified (06/28/18) Osteomyelitis, unspecified (06/28/18) Acute kidney failure, unspecified (06/28/18) Surgery Performed Operation Date: 07/01/18 18:45 Actual Procedures p Foot ulcer I&D(Right) - Elizabeth Hernandez MD s Hammertoe Correction w/Metatarsal head resection and hammer toe corrections lesser toes, second, third, fourth, fifth(Right) - Elizabeth Hernandez MD Operation Date: 07/03/18 12:00 Actual Procedures p 2nd Toe Amputation(Right) - Elizabeth Hernandez MD Physical Therapy Treatment Note M2 PT-IP Current Condition Start: 06/30/18 10:58 Freq: NEEDED Status: Active Protocol: Document 07/04/18 09:01 AB (Rec: 07/04/18 13:00 AB [id number]) Physical Therapy Current Condition Current Condition Evaluation Date 07/04/18 Treatment Diagnosis s/p R metatarsal head excision /pinning; difficulties in walking Onset Date 06/28/18 Precautions Brace clarification order per nurse: posterior splint on when in bed and offloading darco boot when oob Other Precautions per Dr hernandez's note: heel weight bearing on R foot with minimal weight bearing for transfers and minimal ambulation as needed Weight Bearing Status Weight Bearing Status Weight Bear as Tolerated Allowed Weight Bearing Amount (enter % heel weight bearing with off or #) (%) loading shoe M3 PT-IP Subjective Start: 06/30/18 10:58 Freq: NEEDED Status: Active Protocol: Document 07/06/18 08:45 RS (Rec: 07/06/18 09:27 RS [id number]) Subjective Physical Therapy Visit Type Type Treatment Note Visit Start Time 08:22 Visit Stop Time 08:45 Total Visit Minutes 23 Physical Therapy Visit Comments Patient Comments Pt reports doing well, wishes he had the R shoe here to level out his feet. Pt reports his son will bring it to the SNF. Therapy Pain Assessment Pain When Pain Assessed At Rest Pain Present Pain Present Denied Pain M4 PT-IP Mobility and Gait Start: 06/30/18 10:58 Freq: NEEDED Status: Active Protocol: Document 07/06/18 08:45 RS (Rec: 07/06/18 09:27 RS [id number]) PT-Bed Mobility Assessment Supine to Sit Supine to Sit Standby Assistance Sit to Supine Sit to Supine Standby Assistance Scooting Scooting to Edge of Bed Standby Assistance Scooting Up and Down in Bed Standby Assistance PT-Transfer Assessment Sit to and From Stand Sit to and from Stand Contact Guard Assistance Equipment Transfer Assistive Device Gait Belt Front Wheeled Walker Orthotic/Prosthetic Devices or Brace: No Transfers Transfer Destination Bed Transfer Ability Level of Assist Contact Guard Assistance Comments Mobility Comments Pt continues to be slightly impulsive and needs cues for less weight through the LLE. Gait Assessment Gait Gait Assistance Required: Contact Guard Assist Distance (Feet) 50 Able to Maintain Weight Bearing Status Yes During Gait Assistive Devices Assistive Device Gait Belt Front Wheeled Walker Orthotic/Prosthetic Devices or Brace: No Gait Deviations General Gait Pattern Antalgic Decreased Stride Length Decreased Feet Clearance Factors Limiting Gait Function Factors Limiting Gait Function Decreased Activity Tolerance Decreased Strength Limited Range of Motion Pain Poor Balance Poor Safety Awareness Comments Gait Comments Pt continues to be slightly impulsive and needs cues for less weight through the LLE. Stair Climbing Assessment Comments Stair Climbing Comments not tested PT-Balance Assessment Sitting Balance and Reactions Static Sitting Balance Ability Good Dynamic Sitting Balance Ability Good Standing Balance and Reactions Static Standing Balance Ability Fair Dynamic Standing Balance Ability Fair Device Used FWW M5 PT-IP Objective Assessments Start: 06/30/18 10:58 Freq: NEEDED Status: Active Protocol: Document 07/04/18 09:01 AB (Rec: 07/04/18 13:00 AB [id number]) Orientation Orientation/Cognition Level of Alertness Alert Orientation Name Age Birthday Month Date Year Day of Week Place Situation Safety Awareness Decreased Safety Awareness Gross Range of Motion Lower Extremity ROM Assessment Within Functional Limits Strength Lower Extremity Strength Assessment Within Functional Limits Sensation Assessment Sensation Gross Sensation Right LE Impaired Left LE Impaired Light Touch Absent Comments Sensation Comments absent light touch sensation on BLE from mid leg down to feet M6 PT-IP Treatment Start: 06/30/18 10:58 Freq: NEEDED Status: Active Protocol: Document 07/05/18 14:23 CLB (Rec: 07/05/18 16:21 CLB [id number]) Physical Therapy Treatment Exercises Exercises Ankle Pumps Quad Sets Seated Knee Flexion/Extension Education Education Provided Precautions Weight Bearing Status Safety M7 PT-IP Assessment and Plan Start: 06/30/18 10:58 Freq: NEEDED Status: Active Protocol: Document 07/06/18 08:45 RS (Rec: 07/06/18 09:27 RS [id number]) PT Summary Assessment and Plan Potential Rehabilitation Potential Fair Status of Condition at Evaluation Stable Summary Impairments Pain Strength Balance Coordination Sensation Cognition Bed Mobility Transfers Gait Activity Tolerance Assessment Summary Pt continues to need physical assist and verbal cues for mobility. Pt is not safe to be home alone but does have good potential for functional improvement. Pt's family is unable to provide this level off assist. Recommend pt transition to SNF rehab for daily therapies. This is to occur today, therefore, acute PT will sign off. Pt in agreement with this plan. Goals Bed Mobility Goal Independent Transfer Goal Independent Front Wheeled Walker Gait Goal Independent Front Wheel Walker Gait Distance 50 Other Goals gait distance goal limited due to doctor's order for minimal ambulation due to recent R foot surgery. Days to Meet Goals 3 Frequency of Treatment Frequency Of Treatment Discharge Treatment Plan Physical Therapy Treatment Plan Bed Mobility Training Transfer Training Gait Training Therapeutic Exercise Balance Retraining Post Op Education Discharge Planning Hot or Cold Pack Neuromuscular Re-ed Coordination Retraining Manual Therapy Recommendations To Nursing Amount of Assist Needed 1 Person Assist Discharge Recommendations PT Discharge Recommendations SNF Rehab
[2018-07-06 11:00] VITALS: BP 138/96; PULSE 71; RESP 71; TEMP 36.5; O2SAT 95
[2018-07-06] MEDS: CEFTRIAXONE 2 GM/50 ML FROZ.PIGGY IV (12:24)
--- NOTE | 2018-07-06 14:15 | PC.NURSE ---
Day shift: Pt left unit with transport person at approx 1415. Paperwork in folder as well as scrips and signed med list. Pt has all personal belongings. Pt had a BM just prior to leaving also. Good urine output. Per MD notes the PICC line was left in place. PICC dressing is labeled and dated.
--- NOTE | 2018-07-07 15:37 | P.DS_ITS ---
History of Present Illness Chief complaint: right foot thinks is infected Narrative: The patient is a 73 y/o male with a history of Rheumatoid Arthritis who was in his usual state of health until about 3 weeks ago, when he noted pain in the right foot, drainage from the plantar surface and deformative of the toes of the right foot. The patient was seen by his PCP and Orthopedist. He was treated with antibiotics, but after completion developed redness of the forefoot and toes of the right foot. The right foot is warm, swollen, and weeping from the bottom. He reports chills and fever over the weekend. He has neuropathy in the foot with minimal sensation. The patient was evaluated in the ED and found to have cellulitis of the right foot. Xrays of the foot and ankle did not confirm osteomyelitis, but did reveal deformities of the toes. MRI revealed: Cortical erosions and abnormal marrow signal of the distal aspect of the right second metatarsal and proximal aspect of the right second proximal phalanx consistent with osteomyelitis with extensive adjacent soft tissue edema. There is a possible 1.5 cm peripherally enhancing fluid collection inferior to the proximal diaphysis of the second metatarsal, which may represent a developing abscess. The second proximal phalanx remains dislocated laterally from the second metatarsal head. #2. Abnormal signal within the proximal base of the right third proximal phalanx may represent additional osteomyelitis versus chronic degenerative change. #3. Abnormal signal within the lateral mid foot involving the third, fourth, and fifth tarsometatarsal articulations may represent additional osteomyelitis versus chronic degenerative change. Discharge Providers Date of admission: 06/28/18 22:25 Primary care physician: Terence Victor MD Consults: 06/28/18 22:03 Consult to Physician Routine Comment: Consulting Provider: Snehal Luna Reason for consultation: admission 06/29/18 13:22 Consult to Occupational Therapy Evaluate & Treat Comment: Physician Instructions: Evaluate and treat Consult to Physical Therapy Evaluate & Treat Comment: Physician Instructions: Evaluate and Treat 06/30/18 15:36 Consult to Orthopedic Surgery Routine Comment: Consulting Provider: Elizabeth Bell Reason for consultation: foot ulcer Has provider been notified: Yes 07/02/18 10:43 Consult to Physical Therapy Evaluate & Treat Comment: Physician Instructions: Evaluate and Treat 07/03/18 16:53 Consult to Discharge Planning Routine Comment: prob can d/c to SNF on sat 07/04/18 Discharge provider: Cassidy Renteria MD Discharge Date: 07/06/18 Summary Discharge Diagnosis: Osteomyelitis Rheumatoid Arthritis Hypertension Methicillin Sensitive Staph Aureus infection s/p amputation of the second toe Hospital Course: Patient admitted to the hospital for infection of an ulcer on the plantar surface. He has toe deformities /dislocations secondary to Rheumatoid Arthritis. The patient was evaluated in the hospital and ultimately taken to the operating room for amputation of the 2 nd toe. He was placed on IV antibiotics which were narrowed given cultures positive for methicillin sensitive staph aureus. The patient will require 6 weeks of antibiotics. As this could best be given at a Long Term facility the patient was discharged to a SNF for continued treatment. Patient will have an off loading boot for ambulation. He has a posterior splint for laying in bed. Patient was evaluated y ortho and deeemed appropriate for discharge Status at Discharge Functional status at discharge: uses cane/walker Overall status at discharge: patient is not back to baseline Time Spent with Patient Less than 30 minutes Exam Vital Signs (past 8 hours): Oxygen Delivery Method Room Air Oxygen Flow Rate 0 Narrative Exam Narrative: Pleasant male in NAD Lungs: clear to auscultation CV: RRR nl Sl S2 Abd: soft/ non tender Ext: right foot with dressing in place, wound reviewed by Ortho yesterday Objective Labs Result Diagrams: 07/06/18 06:00 07/06/18 06:00 Discharge Plan Discharge Plan Patient Disposition: SNF Transfer to: [facility] Transportation: [facility] I certify the postop hospital custodial care is medically necessary on a continuing basis for any conditions for which he/ she received care during this hospitalization.: Yes The receiving facility has agreed to accept transfer and provide medical treatment.: Yes Discharge Med Rec/Prescriptions Prescriptions: New acetaminophen 325 mg Tablet 650 mg PO Q6HR PRN (Reason: As Needed For Fever/Mild Pain) Qty: 30 RF: 0 docusate sodium 100 mg Capsule 100 mg PO BID Qty: 20 RF: 0 oxycodone 5 mg Tablet 5 mg PO Q6HR PRN (Reason: Pain, Moderate (4-6)) Qty: 20 RF: 0 ceftriaxone 2 gram recon soln 2 gram IV DAILY 35 Days RF: 0 Continue prednisone 5 mg Tablet 5 mg PO DAILY RF: 0 tamsulosin 0.4 mg Capsule 0.4 mg PO DAILY RF: 0 metoprolol tartrate 25 mg Tablet 25 mg PO BID RF: 0 Follow up/Referrals: Terence Victor MD [Primary Care Provider] - Provider Discharge Instructions Diet: Low-fat and Low-sodium Liquid consistency: Normal/Thin Food texture: Regular Activity: as per Ortho. Patient is to wear posterior splint in bed, and, offloading Dacron boot to ambulate Skin/Wound/Dressing Care Dressing: Patient to follow up with Dr. Bell in 10 days for dressing change. Dressing to stay in place until follow up appoointment Discharge Data Primary Care Provider: Terence Victor Attending Provider: Snehal Luna Admit Date/Time: 06/28/18 22:25 Discharges patient from system. Discharge Date/Time: 07/06/18 14:17 Quality VTE Deep Vein Thrombosis/Pulmonary Embolism Present on Admission: No
--- NOTE | 2018-07-10 10:54 | PC.NURSE ---
Patient called asking about his posterior splint he was supposed to have at discharge he reports he had it in the hospital and it did not come with him to [facility]. This RN checked lost and found and did not find the splint. Patient reports this is the third time he has called about the splint to the hospital, he has also called Dr Mclean office and can not get ahold of the doctor. I personally spoke with Dr Bell by phone this morning at 1045 and relayed the patients concern about the splint. Dr Bell states as long as the patient has the Darco offloading shoe he is fine, he doesn't need the splint. Returned call to [patient and informed him of what Dr Bell stated.
== END 2018-07-06 14:17 | DRG 500 ==
LOC: ED 22:11 → AC 22:26
PROVIDERS: Family Medicine; Internal Medicine; Orthopaedic Surgery Foot and Ankle Surgery; Admitting Provider Internal Medicine; Emergency Provider Nurse Practitioner Family; Family Provider Family Medicine; PCP Family Medicine; Visit Provider Internal Medicine
PROC: 0QBN0ZZ Excision of Right Metatarsal, Open Approach (ICD-10-PCS; principal; 2018-07-01 18:45)
PROC: 0QBN0ZZ Excision of Right Metatarsal, Open Approach (ICD-10-PCS; CPT 28285; 2018-07-01 18:45)
PROC: 0Y6R0Z0 Detachment at Right 2nd Toe, Complete, Open Approach (ICD-10-PCS; principal; 2018-07-03 12:00)
DX: M86.8X7 Other osteomyelitis, ankle and foot (principal); L89.894 Pressure ulcer of other site, stage 4; L03.115 Cellulitis of right lower limb; I96 Gangrene, not elsewhere classified; N17.9 Acute kidney failure, unspecified; M06.9 Rheumatoid arthritis, unspecified; I10 Essential (primary) hypertension; M24.474 Recurrent dislocation, right foot; A49.01 Methicillin susceptible Staphylococcus aureus infection, unspecified site; M65.871 Other synovitis and tenosynovitis, right ankle and foot
CPT/HCPCS: 36415; 36569; 36591; 36592; 72040; 73630; 73720; 80048; 80053; 82310; 83605; 83735; 84100; 84145; 85025; 85651; 86140; 87040; 87070; 87075; 87077; 87147; 87150; 87186; 87205; 88305; 88311; 93005; 94760; 96365; 97110; 97116; 97161; 97530; 99283; 99284; A9579; J0690; J0696; J1100; J1650; J1956; J2405; J2704; J3010; J3370

== ENCOUNTER 2018-12-25 13:59 | Emergency (ER) | payer MEDICARE, SELFPAY ==
[2018-12-25 14:02] VITALS: BP 108/75; PULSE 126; RESP 17; TEMP 36.6; O2SAT 97
--- NOTE | 2018-12-25 14:10 | DI.RAD.S_ITS ---
PROCEDURE: XR KNEE LT 3V INDICATIONS: pain TECHNIQUE: 3 views of the knee were acquired. COMPARISON: None. FINDINGS: Bones: No fractures or dislocations. No suspicious bony lesions. Soft tissues: No joint effusion. No suspicious soft tissue calcifications. IMPRESSION: No acute fracture. No osseous lesion. If symptoms and/or clinical suspicion for pathology persist, further assessment with repeat, or advanced imaging (e.g., CT, MRI, or bone scan) may be helpful for further assessment. Dictated by: Denzel Deng M.D. on 12/25/2018 at 14:51 Approved by: Denzel Deng M.D. on 12/25/2018 at 14:52
--- NOTE | 2018-12-25 15:20 | ED_ITS ---
HPI - Extremity Injury (Lower) <Shaina Ortiz PA-C - Last Filed: 12/25/18 22:58> General Chief Complaint: Extremity Injury, Lower Stated Complaint: left knee, fell Time Seen by Provider: 12/25/18 18:16 Source: patient Mode of arrival: ambulatory Limitations: no limitations History of Present Illness HPI Narrative: This 73-year-old male comes to ED secondary to left knee pain after a fall directly onto it on Friday. He states that he just tripped fell, denies hitting his head, LOC or any other injury. He states that he has been walking on the knee but it is quite painful and he wanted to make sure no broken bone. He denies any laxity, denies any pain elsewhere in the lower extremity. Related Data Home Medications Medication Instructions Recorded Confirmed metoprolol tartrate 25 mg PO BID 06/28/18 06/28/18 prednisone 5 mg PO DAILY 06/28/18 06/28/18 tamsulosin 0.4 mg PO DAILY 06/28/18 06/28/18 Previous Rx's Medication Instructions Recorded acetaminophen 650 mg PO Q6HR PRN #30 tab 07/06/18 docusate sodium 100 mg PO BID #20 cap 07/06/18 oxycodone 5 mg PO Q6HR PRN #20 tab 07/06/18 Allergies Allergy/AdvReac Type Severity Reaction Status Date / Time cortisone [CORTISONE] Allergy Intermediate HALLUCINATI Verified 06/28/18 20:03 ONS Penicillins [PENICILLINS] Allergy Unknown Verified 06/28/18 20:03 Review of Systems <Shaina Ortiz PA-C - Last Filed: 12/25/18 22:58> Review of Systems ROS Unobtainable: All systems reviewed & are unremarkable except as noted in HPI and below PFSH <Shaina Ortiz PA-C - Last Filed: 12/25/18 22:58> Medical History (Updated 12/25/18 @ 19:45 by Maria Del Carmen Owen RN) Bilateral arm fractures (Chronic) HTN (hypertension) (Chronic) History of pulmonary embolus (PE) (Chronic) Leg fracture, right (Chronic) Neuropathy (Chronic) Prostate cancer (Chronic) Rheumatoid arthritis (Chronic) Surgical History (Updated 12/25/18 @ 18:44 by Shaina Ortiz PA-C) History of appendectomy (Chronic) History of right knee joint replacement (Chronic) Family History Mother Congestive heart failure Cancer Father Cancer Father Cancer Social History household members: spouse Smoking Status: Never smoker alcohol intake: never Social History household members: spouse Smoking Status: Never smoker alcohol intake: never Exam <Shaina Ortiz PA-C - Last Filed: 12/25/18 22:58> Narrative Exam Narrative: GENERAL APPEARANCE: Patient sitting comfortably, in no distress. LUNGS: Clear to auscultation bilaterally. HEART: Rate and rhythm regular without murmur, normal S1 and S2, no S3 or S4. MUSCULOSKELETAL: Left knee mild effusion, tender over the medial joint line, less so over the lateral joint line as well as the inferior patella. He has slightly reduced active knee flexion secondary to tenderness, full extension. No obvious laxity DERMATOLOGIC: Patchy ecchymoses over the left knee more prominent medially, no open wounds Initial Vital Signs Initial Vital Signs: Vital Signs Temperature 98 F 12/25/18 14:02 Pulse Rate 126 H 12/25/18 14:02 Respiratory Rate 17 12/25/18 14:02 Blood Pressure 108/75 12/25/18 14:02 Pulse Oximetry 97 12/25/18 14:02 <Elaine Gray DO - Last Filed: 12/26/18 06:00> Initial Vital Signs Initial Vital Signs: Vital Signs Temperature 98 F 12/25/18 14:02 Pulse Rate 126 H 12/25/18 14:02 Respiratory Rate 17 12/25/18 14:02 Blood Pressure 108/75 12/25/18 14:02 Pulse Oximetry 97 12/25/18 14:02 Course <Shaina Ortiz PA-C - Last Filed: 12/25/18 22:58> Additional Information: Patient elected not to wait for a knee brace and was discharged by Dr. Gray Orders Ordered: ED Orders 12/25/18 14:10 XR knee LT 3V Stat Vital Signs - 8 hr 12/25/18 19:37 Pulse Rate 87 Respiratory Rate 16 Blood Pressure [Left Arm] 114/80 Pulse Oximetry 95 <Elaine Gray DO - Last Filed: 12/26/18 06:00> Orders Ordered: ED Orders 12/25/18 14:10 XR knee LT 3V Stat Vital Signs - 8 hr 12/25/18 19:37 Pulse Rate 87 Respiratory Rate 16 Blood Pressure [Left Arm] 114/80 Pulse Oximetry 95 MDM - Extremity Injury (Lower) <Shaina Ortiz PA-C - Last Filed: 12/25/18 22:58> Imaging Data knee: Radiologist's impression: [address] [address] XRay Report Signed Patient: Billy Cox GMR#: [id number] : 3Acct:[id number] Age/Sex: 73 / MDate of Service: 12/25/18 Loc: ED Accession Number: [id number] Procedure: XR knee LT 3V Ordering Provider: Robert Schwarz D.O. PROCEDURE: XR KNEE LT 3V INDICATIONS: pain TECHNIQUE: 3 views of the knee were acquired. COMPARISON: None. FINDINGS: Bones: No fractures or dislocations. No suspicious bony lesions. Soft tissues: No joint effusion. No suspicious soft tissue calcifications. IMPRESSION: No acute fracture. No osseous lesion. If symptoms and/or clinical suspicion for pathology persist, further assessment with repeat, or advanced imaging (e.g., CT, MRI, or bone scan) may be helpful for further assessment. Dictated by: Denzel Deng M.D. on 12/25/2018 at 14:51 Approved by: Denzel Deng M.D. on 12/25/2018 at 14:52 Discharge Plan Departure Patient Disposition: Home Clinical Impression: Pressure injury of right foot, stage 4 Contusion of knee, left Qualifiers: Encounter type: initial encounter Qualified Code(s): S80.02XA - Contusion of left knee, initial encounter Discharge Date/Time: 12/25/18 19:45 Interventions: ED Discharge Assessment Last Done: 12/25/18 19:45 Instructions: DI for Knee Pain Activity Restrictions/Additional Instructions: You do have swelling and bruising around your knee however there was no broken bone found on the x-ray today. Please take Tylenol as needed for pain (or you may wish to try Tylenol arthritis Strength every 8 hours since this is longer lasting). Gentle walking is okay on even surfaces as you tolerate. You can wear an [id number] knee brace or Jack wrap if desired. Please return as we talked about if you have any acute changes or worsening symptoms, otherwise follow up with your PCP for recheck next week to see if you need further testing or a referral, i.e. for therapy Prescriptions: No Action prednisone 5 mg Tablet 5 mg PO DAILY RF: 0 tamsulosin 0.4 mg Capsule 0.4 mg PO DAILY RF: 0 metoprolol tartrate 25 mg Tablet 25 mg PO BID RF: 0 acetaminophen 325 mg Tablet 650 mg PO Q6HR PRN (Reason: As Needed For Fever/Mild Pain) Qty: 30 RF: 0 docusate sodium 100 mg Capsule 100 mg PO BID Qty: 20 RF: 0 oxycodone 5 mg Tablet 5 mg PO Q6HR PRN (Reason: Pain, Moderate (4-6)) Qty: 20 RF: 0 Referrals: Terence Victor MD [Primary Care Provider] - <Elaine Gray DO - Last Filed: 12/26/18 06:00> Cosign ED Attending Mattieature Attestation: I was immediately available in the department for consultation. Documentation has been reviewed. I agree with assessment and plan.
[2018-12-25 19:37] VITALS: BP 114/80; PULSE 87; RESP 16; O2SAT 95
== END 2018-12-25 19:45 | disposition home or self-care (01) ==
PROVIDERS: Emergency Provider Internal Medicine; Family Provider Family Medicine; PCP Family Medicine
DX: S80.02XA Contusion of left knee, initial encounter (principal); W19.XXXA Unspecified fall, initial encounter
CPT/HCPCS: 73562; 99282; 99283

== ENCOUNTER 2019-02-15 21:01 | Emergency (ER) | payer MEDICARE, SELFPAY ==
[2019-02-15 21:11] VITALS: BP 121/79; PULSE 77; RESP 18; TEMP 36.8; O2SAT 98
--- NOTE | 2019-02-15 21:15 | DI.RAD.S_ITS ---
PROCEDURE: XR HIP W PEL IF DONE LT 2V INDICATIONS: fall w/ left hip pain. TECHNIQUE: AP pelvis with lateral view(s) of the left hip(s). COMPARISON: None. FINDINGS: Bones: No fractures or dislocations. Pelvic ring appears intact. No suspicious bony lesions. Soft tissues: The visualized bowel gas pattern is normal. No suspicious soft tissue calcifications. IMPRESSION: No visualized acute fracture or dislocation. However, if clinical concern and/or pain persist, short interval imaging followup in 7-10 days is recommended, as occult injury cannot be definitively excluded. Dictated by: Kathya Marina M.D. on 02/15/2019 at 22:03 Approved by: Kathya Marina M.D. on 02/15/2019 at 22:03
--- NOTE | 2019-02-15 21:43 | ED.LOWEXIN ---
HPI - Extremity Injury (Lower) General Chief Complaint: Extremity Injury, Lower Stated Complaint: Left leg pain Time Seen by Provider: 02/15/19 21:10 Source: patient Mode of arrival: ambulatory Limitations: no limitations History of Present Illness HPI Narrative: 74-year-old male here for evaluation of left hip/buttocks pain. He stated that a couple days ago he twisted and had some pain. It seemed to improve and then it happened again today. States that the pain is in his buttocks radiating down the back of his leg. Related Data Home Medications Medication Instructions Recorded Confirmed metoprolol tartrate 25 mg PO BID 06/28/18 06/28/18 prednisone 5 mg PO DAILY 06/28/18 06/28/18 tamsulosin 0.4 mg PO DAILY 06/28/18 06/28/18 Previous Rx's Medication Instructions Recorded acetaminophen 650 mg PO Q6HR PRN #30 tab 07/06/18 docusate sodium 100 mg PO BID #20 cap 07/06/18 oxycodone 5 mg PO Q6HR PRN #20 tab 07/06/18 lidocaine 1 patch TOP DAILY #1 each 02/15/19 Allergies Allergy/AdvReac Type Severity Reaction Status Date / Time cortisone [CORTISONE] Allergy Intermediate HALLUCINATI Verified 02/15/19 21:15 ONS Penicillins [PENICILLINS] Allergy Unknown Verified 02/15/19 21:15 Review of Systems Constitutional Denies headache(s) ENT Ears, Nose, Mouth, and Throat: Denies headache(s) Cardiovascular Denies chest pain, Denies palpitations and Denies dyspnea Respiratory Denies dyspnea Gastrointestinal Gastrointestinal: Denies abdominal pain Genitourinary Comments: Currently on antibiotics for urinary tract infection Musculoskeletal Reports arthralgias (Left hip) Integumentary/Breasts Denies new lesions and Denies rash Neurologic Denies behavioral changes and Denies headache(s) Psychiatric Denies behavioral changes Endocrine Denies palpitations Hematologic/Lymphatic Denies easy bleeding and Denies easy bruising [facility] Medical History Bilateral arm fractures (Chronic) HTN (hypertension) (Chronic) History of pulmonary embolus (PE) (Chronic) Leg fracture, right (Chronic) Neuropathy (Chronic) Prostate cancer (Chronic) Rheumatoid arthritis (Chronic) Surgical History (Updated 12/25/18 @ 18:44 by Shaina Ortiz PA-C) History of appendectomy (Chronic) History of right knee joint replacement (Chronic) Family History Mother Congestive heart failure Cancer Father Cancer Father Cancer Social History household members: spouse Smoking Status: Never smoker alcohol intake: never Social History household members: spouse Smoking Status: Never smoker alcohol intake: never Exam Initial Vital Signs Initial Vital Signs: Vital Signs Temperature 98.3 F 02/15/19 21:11 Pulse Rate 77 02/15/19 21:11 Respiratory Rate 18 02/15/19 21:11 Blood Pressure 121/79 02/15/19 21:11 Pulse Oximetry 98 02/15/19 21:11 Const General: cooperative, well developed, well groomed and No acute distress Resp Effort & Inspection: normal respiratory effort Back/Spine/Pelvis Back: No CVA tenderness Thoracic/Lumbar Spine: No thoracic spinal tenderness and No lumbar spinal tenderness Skin Lesions: no lesions Rashes: no rashes Neuro General: alert and awake Cognition: normal cognition Extrem Other: Patient able to flex and extend at the left hip and left knee. Able to internally and externally rotate the left hip without any problems. Course Orders Ordered: ED Orders 02/15/19 21:15 XR hip w pel if done LT 2V Stat Vital Signs - 8 hr 02/15/19 21:11 02/15/19 22:37 Temperature 98.3 F Pulse Rate 77 71 Respiratory Rate 18 16 Blood Pressure 121/79 118/77 Pulse Oximetry 98 97 MDM - Extremity Injury (Lower) Imaging Data X-ray hip: Radiologist's impression: [address] [address] XRay Report Signed Patient: Billy Cox GMR#: [id number] : 3Acct:[id number] Age/Sex: 74 / MDate of Service: 02/15/19 Loc: ED Accession Number: [id number] Procedure: XR hip w pel if done LT 2V Ordering Provider: Ulices Cheng D.O. PROCEDURE: XR HIP W PEL IF DONE LT 2V INDICATIONS: fall w/ left hip pain. TECHNIQUE: AP pelvis with lateral view(s) of the left hip(s). COMPARISON: None. FINDINGS: Bones: No fractures or dislocations. Pelvic ring appears intact. No suspicious bony lesions. Soft tissues: The visualized bowel gas pattern is normal. No suspicious soft tissue calcifications. IMPRESSION: No visualized acute fracture or dislocation. However, if clinical concern and/or pain persist, short interval imaging followup in 7-10 days is recommended, as occult injury cannot be definitively excluded. Dictated by: Kathya Marina M.D. on 02/15/2019 at 22:03 Approved by: Kathya Marina M.D. on 02/15/2019 at 22:03 [facility] Narrative Medical decision making narrative: Patient was able ambulate without problems. He does have peripheral neuropathy in bilateral lower extremities with this is not new. X-ray does not show any fractures. I feel that his symptoms are less likely hip joint pain but are more likely radiculopathy from a lower lumbar strain. He is currently on anticoagulation. This makes anti-inflammatories questionable in this situation. He is currently on prednisone. He is also being treated for rheumatoid arthritis. Will increase his prednisone for the next several days with a taper. Also sent home with lidocaine patches. Patient was given return precautions and follow-up instructions. He expressed understanding and agreement with plan. Discharge Plan Departure Patient Disposition: Home Clinical Impression: Sciatica of left side Discharge Date/Time: 02/15/19 22:39 Interventions: ED Discharge Assessment Last Done: 02/15/19 22:37 Instructions: DI for Sciatica Activity Restrictions/Additional Instructions: Use the lidocaine patches as directed. I would recommend that starting tomorrow you take 20 mg of prednisone a day for 5 days then 15 mg of prednisone a day for 5 days then 10 mg a day for 5 days then start back on 5 mg a day. Contact your primary doctor tomorrow for follow-up as well. Return to the emergency department for any new or worsening symptoms Prescriptions: New lidocaine 5 % adhesive patch,medicated 1 patch TOP DAILY Qty: 1 RF: 0 No Action prednisone 5 mg Tablet 5 mg PO DAILY RF: 0 tamsulosin 0.4 mg Capsule 0.4 mg PO DAILY RF: 0 metoprolol tartrate 25 mg Tablet 25 mg PO BID RF: 0 acetaminophen 325 mg Tablet 650 mg PO Q6HR PRN (Reason: As Needed For Fever/Mild Pain) Qty: 30 RF: 0 docusate sodium 100 mg Capsule 100 mg PO BID Qty: 20 RF: 0 oxycodone 5 mg Tablet 5 mg PO Q6HR PRN (Reason: Pain, Moderate (4-6)) Qty: 20 RF: 0 Referrals: Terence Victor MD [Primary Care Provider] -
[2019-02-15 22:37] VITALS: BP 118/77; PULSE 71; RESP 16; O2SAT 97
== END 2019-02-15 22:39 | disposition home or self-care (01) ==
PROVIDERS: Emergency Provider Emergency Medicine; Family Provider Family Medicine; PCP Family Medicine
DX: M54.32 Sciatica, left side (principal); W01.198A Fall on same level from slipping, tripping and stumbling with subsequent striking against other object, initial encounter
CPT/HCPCS: 73502; 99282; 99283

== ENCOUNTER → 2019-02-26 10:59 | Outpatient (CLI) | payer MEDICARE, SELFPAY | PROVIDERS: PCP Internal Medicine; Visit Provider Urology | DX: R31.9 Hematuria, unspecified (principal); Z53.9 Procedure and treatment not carried out, unspecified reason ==

== ENCOUNTER → 2019-03-06 13:31 | Outpatient (CLI) | payer MEDICARE, SELFPAY ==
--- NOTE | 2019-03-06 | DI.MRI.S_ITS ---
PROCEDURE: MR SHOULDER RT WO CON INDICATIONS: pain in shoulder TECHNIQUE: Noncontrast oblique coronal T2 fast spin echo with fat saturation, oblique sagittal T1 spin echo and T2 fast spin echo with fat saturation, axial T1 spin echo and T2 fast spin echo with fat saturation through the shoulder. COMPARISON: None. FINDINGS: Image quality: Excellent. Rotator cuff: The supraspinatus, infraspinatus, and subscapularis tendons appear free of disruption and retraction throughout, however the supraspinatus tendon shows fenestrated fluid signal within, consistent with partial and small nondisplaced complete tears, predominantly involving the articular surface with several small areas extending from the bursal to the articular surface indicating non-retracted full-thickness tears. Sagittal images demonstrate no muscle atrophy. Bones and bursae: No bone marrow contusions or fractures. There is near severe acromioclavicular and glenohumeral joint degeneration. The acromion demonstrates conventional anatomy, without an os acromiale. No pathologic subacromial-subdeltoid or subcoracoid bursal fluid is present. Capsule and soft tissues: In the absence of intra-articular contrast, the labrum and glenohumeral ligaments appear intact. The long head of the biceps tendon demonstrates normal location and morphology. The rotator interval appears normal, without fibrosis. The coracohumeral ligament is normal in thickness. IMPRESSION: Moderately severe degenerative ostia through the changes present at the glenohumeral articulation and also at the acromioclavicular joint, with fibrous and osseous hypertrophy at the a.c. joint impinging against the normal course of the supraspinatus tendon. The supraspinatus tendon itself shows thinning and elevated fluid signal within, indicating predominantly partial thickness tears with some degree of fenestration in the areas of extension of fluid signal from the articular surface through the bursal surface portions of the supraspinatus tendon. A tendon disruption with retraction is not associated. Dictated by: Angel Nguyen M.D. on 03/08/2019 at 12:28 Approved by: Angel Nguyen M.D. on 03/08/2019 at 12:32
== END ==
PROVIDERS: PCP Internal Medicine; Visit Provider Orthopaedic Surgery
DX: M25.511 Pain in right shoulder (principal); M19.011 Primary osteoarthritis, right shoulder
CPT/HCPCS: 73221

== ENCOUNTER → 2019-04-21 13:25 | Outpatient (CLI) | payer MEDICARE, SELFPAY | PROVIDERS: PCP Internal Medicine; Referring Provider Podiatrist; Visit Provider Family Medicine | DX: L08.9 Local infection of the skin and subcutaneous tissue, unspecified (principal); G60.3 Idiopathic progressive neuropathy; M86.172 Other acute osteomyelitis, left ankle and foot; L97.526 Non-pressure chronic ulcer of other part of left foot with bone involvement without evidence of necrosis; M05.59 Rheumatoid polyneuropathy with rheumatoid arthritis of multiple sites; Z79.52 Long term (current) use of systemic steroids | CPT/HCPCS: 11044; 36415; 80053; 85025; 85651; 86140; 87070; 87075; 87077; 87147; 87186; 87205; 99214 ==

== ENCOUNTER → 2019-04-21 15:46 | Outpatient (CLI) | payer MEDICARE, SELFPAY ==
[2019-04-21 16:12] LABS: Add Manual Diff / Slide Review NO; Basophils Absolute Auto 100 /uL (0-100); Basophils Percent Auto 0.7 % (0-2); Eosinophils Absolute Auto 300 /uL (0-450); Eosinophils Percent Auto 2.8 % (2-4); Hematocrit 42.4 % (41-53); Hemoglobin 14.4 g/dL (13.5-17.5); Lymphocytes Absolute Auto 1500 /uL (1100-4500); Lymphocytes Percent Auto 12.7 % (25-40); Mean Corpuscular HGB Conc 33.8 % (30-36); Mean Corpuscular Hemoglobin 31.2 PG (26-34); Mean Corpuscular Volume 92.3 fL (80-100); Monocytes Absolute Auto 800 /uL (0-900); Monocytes Percent Auto 7.2 % (3-14); Neutrophils Absolute Auto 8800 /uL (1500-7000); Neutrophils Percent Auto 76.6 % (50-75); Platelet Count 312 X10^3/uL (150-400); Red Cell Distribution Width 14.1 % (11.6-14.8); White Blood Cell Count 11.5 X10^3/uL (4.5-11.0)
[2019-04-21 16:58] LABS: Erythrocyte Sedimentation Rate 37 MM/HR (0-15)
[2019-04-21 17:00] LABS: Alanine Aminotransferase 35 IU/L (21-72); Albumin Globulin Ratio 1.3 (1.0-2.8); Alkaline Phosphatase 110 U/L (38-126); Aspartate Aminotransferase 27 IU/L (17-59); Bilirubin Total 0.7 mg/dL (0.2-1.3); Blood Urea Nitrogen 34 mg/dL (9-20); Calcium 9.7 mg/dL (8.4-10.2); Carbon Dioxide 23 mmol/L (22-32); Chloride 108 mmol/L (98-107); Estimated Glomerular Filt Rate > 60.0 mL/min (>60); Globulin 3.1 g/dL (1.7-4.1); Glucose 99 mg/dL (80-110); HEMOLYSIS < 15 (0-50); Potassium 4.4 mmol/L (3.4-5.1); Sodium 141 mmol/L (137-145); Total Protein 7.1 g/dL (6.3-8.2)
== END ==
PROVIDERS: Family Provider Internal Medicine; PCP Internal Medicine; Visit Provider Family Medicine
DX: L08.9 Local infection of the skin and subcutaneous tissue, unspecified (principal)
CPT/HCPCS: 36415; 80053; 85025; 85651; 86140

== ENCOUNTER → 2019-04-23 14:59 | Outpatient (CLI) | payer MEDICARE, SELFPAY ==
[2019-04-23 20:28] LABS: Clostridium Difficile Tox PCR Negative for C. diff
== END ==
PROVIDERS: Family Provider Internal Medicine; PCP Internal Medicine; Visit Provider Internal Medicine
DX: R19.7 Diarrhea, unspecified (principal)
CPT/HCPCS: 87177; 87493

== ENCOUNTER → 2019-04-28 13:35 | Outpatient (CLI) | payer MEDICARE, SELFPAY | PROVIDERS: Family Provider Internal Medicine; PCP Internal Medicine; Visit Provider Family Medicine | DX: G60.3 Idiopathic progressive neuropathy (principal); L97.524 Non-pressure chronic ulcer of other part of left foot with necrosis of bone; M86.172 Other acute osteomyelitis, left ankle and foot; M05.59 Rheumatoid polyneuropathy with rheumatoid arthritis of multiple sites; Z79.52 Long term (current) use of systemic steroids | CPT/HCPCS: 11044; 87070; 87077; 87147; 87186; 87205 ==

== ENCOUNTER → 2019-05-05 13:24 | Outpatient (CLI) | payer MEDICARE, SELFPAY | PROVIDERS: Family Provider Internal Medicine; PCP Internal Medicine; Visit Provider Family Medicine | DX: G90.09 Other idiopathic peripheral autonomic neuropathy (principal); L97.521 Non-pressure chronic ulcer of other part of left foot limited to breakdown of skin; M86.172 Other acute osteomyelitis, left ankle and foot; M05.59 Rheumatoid polyneuropathy with rheumatoid arthritis of multiple sites; Z79.52 Long term (current) use of systemic steroids; B95.4 Other streptococcus as the cause of diseases classified elsewhere; B95.7 Other staphylococcus as the cause of diseases classified elsewhere | CPT/HCPCS: 11042; 99213; 99214 ==

== ENCOUNTER 2019-05-14 12:57 | Day surgery (SDC) | payer MEDICARE, SELFPAY ==
[2019-05-13 08:25] VITALS: BMI 28.8
--- NOTE | 2019-05-14 | PATH_ITS ---
[facility] Accession Number: [id number] . 01 Material submitted: . toe - LEFT FOOT 4TH TOE . 01 Diagnosis: Left Foot Fourth Toe, Amputation: Actively inflamed chronic ulcer of skin. New bone formation with marrow fibrosis; negative for active inflammation or osteonecrosis. Skin, soft tissue and bony margins of resection viable. REPLACED BY [facility] 05/17/2019 1743 Local . 01 Electronically signed: . Marian De La Paz MD, Pathologist NPI- [id number] . 01 Gross description: . Received in formalin, labeled left foot fourth toe, is a disarticulated toe (4.7 cm AP, 1.8 cm SI, 2.3 cm ML). The toenail is present. Multiple ulcers and eroded areas are identified 1.0 cm from the superior and 1.8 cm from the inferior skin and soft tissue resection margins. The remaining skin is abraham-pink, smooth and shiny. The underlying bone is easily sliced with a scalpel and the proximal bone is hard and cannot. The superior resection margin is inked black and the inferior is orange. Section code: (A1) skin and soft tissue resection margins, [employer] representative wom[employer]; (A2) proximal bone, [employer] serial sections; (A3) ulcer and eroded areas, [employer] serial sections; (A4) bone underlying ulcer and eroded areas, [employer] representative [employer] serial section. Note: The bone sections have been decalcified. ([id number]) /MRV 05/16/2019 1514 Local . 01 Pathologist provided ICD-10: L97.524 . 01 CPT . 777228, 603571, 553607 Performed at: [address] [address] [address], [place], [place] [id number] MD Husam Mckeon MD Phone: [phone]
[2019-05-14] MEDS: LACTATED RINGERS 1,000 ML 42 ML IV (13:30)
[2019-05-14 13:40] VITALS: BP 138/94; PULSE 82; RESP 14; TEMP 36.4; O2SAT 98; BMI 27.9
--- NOTE | 2019-05-14 15:44 | PM.PREOP ---
Pre-operative Note Interval Note History & Physical reviewed/Exam performed by Physician: Yes Changes to H&P: No
--- NOTE | 2019-05-14 16:13 | SUR.OPER ---
Supine on padded OR bed, head on pillow, arms secured on padded arm boards at <90 degrees abduction, legs uncrossed, safety belt at thigh, tape over blanket over lower legs.
[2019-05-14] MEDS: CEFAZOLIN 2 GM/100 ML FROZ.PIGGY IV (16:20)
[2019-05-14] MEDS: BUPIVACAINE 0.25% (PF) VIAL 30 ML INJ (16:27)
--- NOTE | 2019-05-14 16:29 | SUR.OPER ---
IV ANTIBIOTICS GIVEN AFTER CULTURE TAKEN.
[2019-05-14 16:44] VITALS: BP 124/79; PULSE 68; RESP 16; TEMP 36.6; O2SAT 95
--- NOTE | 2019-05-14 16:53 | PM.OP.1 ---
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 He had calluses fell off his left 4th toe that became an ulceration with osteomyelitis of his right 4th toe PIP joint. [facility] The PIP joint is now discharged the patient has a swollen toe that is cellulitic down to the MTP joint. The patient is interested in the quickest way to get him back ambulatory and keep him out of the hospital. We discussed options including amputation through the proximal phalanx versus amputation through the metatarsal neck. The patient has a very prominent 4th metatarsal head and is at risk for a plantar ulceration as well. Discussed amputation through the metatarsal head to take care of the osteomyelitic toe as well as the plantar metatarsal head prominence. The patient would like to avoid any surgery with any hardware corrections therefore will not address his other rheumatoid deformities. The risks and benefits of the procedure have been discussed with the patient even opportunity to ask questions. The risks of surgery include but are not limited to infection, malunion, nonunion, persistence of pain, damage to nerves and blood vessels, posttraumatic arthritis, DVT, PE, cardiopulmonary complications and . The patient expressed a thorough understanding of the risks and benefits of surgery and has elected to proceed. Consent was signed in the office today. Surgeon: Elizabeth Bell Click Yes if Unassisted: Yes Operative Notes Findings: Dorsal ulceration PIP joint left 4th toe with the circumferential swelling and sausage type digit. This goes to the webspace but does not extend up over the foot. Specimen with clean margins along the base of the toe up to the metatarsal neck was taken the toe was sent for permanent specimen and the metatarsal head for culture to determine the margins. Closure Type: primary Specimen(s): other (Toe for pathology metatarsal head for culture) Estimated Blood Loss (mL): 5 Blood products transfused: none Tourniquet time (min): 10 Procedure in detail: Patient was seen in the preoperative area the site of surgery was marked and informed consent confirmed. The patient was then brought back to the operating room by the anesthesia team. The patient desired is a simple local anesthetic. Patient was positioned supine on the operative table. Bony prominences were well padded. A formal time-out procedure was performed confirming the patient's site and side of surgery the presence of informed consent. Antibiotics were held for cultures and were given intraoperatively after cultures were taken. Attention was turned to the left foot. The area was cleansed with chlorhexidine alcohol then 10 cc of 0.25% Marcaine with epi were injected for a digital nerve block following this the patient was prepped and draped in the standard sterile fashion. [place] exsanguination was utilized and a calf tourniquet was elevated on the calf to 250 mm of mercury and stayed there for approximately 10 minutes. A tennis racquet type lipped sized incision was taken around the 4th toe and extended over the metatarsal neck this was taken full thickness through the skin and subcutaneous tissues with excision of the toe in total. Next the Hohmann retractors were used to isolate the metatarsal neck and the T PS was used to transect the metatarsal neck at the neck head junction. This was sent for culture and the toe specimen was sent for path. Following this the toe was evaluated no further abscess or obvious infection was found. The extensor tendons and neurovascular bundles were isolated and cut and allowed to retract. The wound was irrigated with 3 L of saline with cysto tubing. Tourniquet was released. Hemostasis was achieved. Deep tissue was closed with 2 0 PDS suture and 3-0 nylon was used in the skin. A sterile dressing was placed with Xeroform gauze Kerlix and an Jack bandage. The patient was woken from anesthesia and the drapes removed and taken to the recovery area in good condition. All counts were correct. There no immediate complications from this procedure. Complications: none Post-operative Condition: stable Disposition: PACU Plan for aftercare: Patient will be weightbear as tolerated on the left foot in a postop shoe to keep the dressing in place. He will elevate as much as possible for the next few weeks to help with his incision healing. Follow up in 2 weeks for wound check.
--- NOTE | 2019-05-14 17:18 | SUR.PHASEII ---
1700 To OPD from OR, awake, oriented, denies pain/nausea. DIL to bedside, VSS; Stable and prepared for discharge.
== END 2019-05-14 17:00 | disposition home or self-care (01) ==
PROVIDERS: Family Provider Internal Medicine; PCP Internal Medicine; Visit Provider Orthopaedic Surgery Foot and Ankle Surgery
PROC: (CPT 28810; principal; 2019-05-14 14:30)
DX: L97.524 Non-pressure chronic ulcer of other part of left foot with necrosis of bone (principal); M05.771 Rheumatoid arthritis with rheumatoid factor of right ankle and foot without organ or systems involvement; M20.42 Other hammer toe(s) (acquired), left foot
CPT/HCPCS: 28810; 87070; 87075; 87077; 87176; 87186; 87205; J0360; J0690; J3010